=== PATIENT | female | born 1965 | race Caucasian/White ===

== ENCOUNTER 2021-02-21 07:48 | Outpatient (RCR) | payer OTHER, SELFPAY | END 2021-03-28 23:59 | LOC: IMMUN 07:48 | PROVIDERS: PCP Student in an Organized Health Care Education/Training Program; Visit Provider Family Medicine | DX: Z23 Encounter for immunization (principal) | CPT/HCPCS: 0001A; 0002A; 91300 ==

== ENCOUNTER 2024-02-12 15:33 | Emergency (ER) | payer OTHER, SELFPAY ==
[2024-02-12 15:34] VITALS: BP 173/113; PULSE 78; RESP 16; TEMP 36.6; O2SAT 99; BMI 40.6
--- NOTE | 2024-02-12 15:55 | EDS_ITS ---
HPI <DANIAL Crystal - Last Filed: 02/12/24 16:57> History of Present Illness Chief Complaint: Chest Other Narrative Narrative: Patient is a 58-year-old female with history of hypertension, obesity who presents to the emergency department with 5 weeks of worsening left-sided rib pain. Patient states most the pain is the posterior left ribs, patient is point tender. Patient has worsening pain, states it shoots into her abdomen. Patient has been seen several times for this, patient has been to 2 different emergency departments, patient has had a CT scan, MRI, and they are still unable to figure out what is causing this. Patient does have some lymphadenopathy on her CT scans and small pulmonary nodules however no acute process. Patient states that the pain is continuing and is here for evaluation. PFS <DANIAL Crystal - Last Filed: 02/12/24 16:57> [facility] Medical History (Updated 02/12/24 @ 16:54 by DANIAL Crystal) Hypertension Home Medications ?Medication ?Instructions ?Recorded ?Last Taken ?Type gabapentin 300 mg capsule 300 mg PO TID #89 caps 02/12/24 Unknown Rx prednisone 20 mg tablet 40 mg (2 x 20 mg) PO DAILY 6 days 02/12/24 Unknown Rx #12 tabs tramadol 50 mg tablet 50 mg PO Q8H PRN pain #14 tabs 02/12/24 Unknown Rx Allergy/AdvReac Type Severity Reaction Status Date / Time peanut (peanuts) Allergy Angioedema Verified 02/12/24 15:37 Penicillins Allergy Hives Verified 02/12/24 15:37 Social History Smoking Status: Never smoker ROS <DANIAL Crystal - Last Filed: 02/12/24 16:57> ROS ED ROS Narrative Constitutional: Negative for fever, chills, weight loss, weakness Eyes: Negative for vision loss, vision change, double vision ENT: Negative for any sore throat, ear pain, congestion Cardiovascular: Negative for any chest pain, tightness, palpitations. Positive for left-sided posterior rib pain Respiratory: Negative for any cough, sputum production, hemoptysis, dyspnea, dyspnea on exertion, orthopnea Gastrointestinal: Negative for any abdominal pain, nausea, vomiting, diarrhea, constipation, blood in stool, blood in vomit : Negative for any urinary frequency, dysuria, retention, blood in urine Muscle skeletal: Negative for any neck pain. Positive left-sided back pain Neurological: Negative for any headache, syncope, dizziness Skin: Negative for any rashes, itching, abrasions, lacerations Psychiatric: Negative for any depression, anxiety, stress, suicidal ideation, homicidal ideation Hematologic: Negative for any excessive bruising, easy bleeding EXAM <DANIAL Crystal - Last Filed: 02/12/24 16:57> Physical Exam Narrative Exam Narrative: Vital signs reviewed. HEET: Head normocephalic atraumatic, TMs clear bilaterally. Posterior pharynx is clear, moist mucous membranes. Nares clear bilaterally. Neck: Supple with no lymphadenopathy or tenderness. No signs of meningismus. Cardiac: Regular rate and rhythm no murmurs gallops or rubs, equal peripheral p ulses bilaterally. Respiratory: Lungs clear to auscultation bilaterally. No chest tenderness. Abdomen: Soft, nontender, nondistended. No abdominal bruit or pulsatile masses. No hepatosplenomegaly Extremities: No peripheral edema, no signs of gross trauma or deformity. Active full range of motion of all extremities. Neuro: Cranial nerves II through XII intact, no focal neurological deficits. Skin: Clean dry and intact with no rash, purpura, petechiae, vesicles or pustules. Backs/flank: No CVA tenderness, no midline spinal tenderness, no deformity. Patient has pain to the posterior left rib. Patient is point tender along the anterior aspect. Visual inspection showed no rash, there is no herpetic lesions. There is no cellulitis. There is no crepitus. Equal breath sounds throughout. Psych: Normal mood and affect. No SI, HI or acute psychosis. Const Vital Signs: 02/12/24 15:34 02/12/24 15:47 Temperature 98 F Temperature Source Temporal Pulse Rate 78 Respiratory Rate 16 Respiratory Effort Normal Non-Labored Blood Pressure 173/113 H Blood Pressure Mean 133 Pulse Ox 99 Oxygen Delivery Method Room Air <Dr. Dax Wakefield MD - Last Filed: 02/13/24 00:21> Physical Exam Const Vital Signs: 02/12/24 15:34 02/12/24 15:47 Temperature 98 F Temperature Source Temporal Pulse Rate 78 Respiratory Rate 16 Respiratory Effort Normal Non-Labored Blood Pressure 173/113 H Blood Pressure Mean 133 Pulse Ox 99 Oxygen Delivery Method Room Air MDM <DANIAL Crystal - Last Filed: 02/12/24 16:57> [facility] Treatment and Re-Evaluation :: Differential diagnosis includes however is not limited to: Costochondritis, shingles, muscle strain, thoracic strain Patient appears generally well, patient appears nontoxic, vital signs are stable. Patient presents to the emergency department with ongoing pain to the left posterior ribs that radiates to the left abdomen. Patient had multiple studies, do not believe that we can offer the patient any diagnostic studies here. We did speak with the patient at length, at this time, I do believe that is dermatomal, this could be some radiculopathy. Multiple reasons such as shingles, however does not appear to be on a dermatome. At this time, patient be to his gabapentin she be given her first dose here 300 mg, tomorrow she will take 2 doses, then 3 doses thereon after for the next month. Patient will follow-up with pain management. She was given tramadol as well as prednisone. She instructed return for any worsening symptoms. All questions were answered, patient stable for discharge. <Dr. Dax Wakefield MD - Last Filed: 02/13/24 00:21> [facility] Narrative Medical decision making narrative: I have personally performed a face to face assessment of the patient and have reviewed the AZAR Note. I performed a substantive portion of the visit including all aspects of the following. My mclain findings include: History is 5 weeks or so of pain from her left mid-low back radiating around to her left upper quadrant. Does not cross the midline in her back or abdomen. Movement makes it worse. Treatments have not been helping, but she was just prescribed a muscle relaxer that she has not tried yet. She states, according to the patient, that she has had a CT of the abdomen/pelvis, MRI of the thoracic spine, and MRI of the lumbar spine all at outside hospitals, that information is not available right now. She states she has no new symptoms. She does not recall ever having a rash. She had chickenpox when she was a child, she did not have the shingles vaccine, and she has never had shingles before. She has had temporary improvement when she was manipulated by chiropractor. Exam is tender in the left posterior lateral back at 1 point away from the spine, where she is not tender, and the tenderness is fairly superficial. There is no rash. She is tender around the rib/dermatome to the left upper quadrant above the umbilicus toward the midline but not beyond it. No rash. All of the tenderness appears to be in a T9 dermatome, well below the costal margin in the flank and anterior abdomen. Medical Decison Making I do not think the patient needs any other emergent workup here in the emergency department. It is possible this is a costal issue or an issue with an intercostal nerve, but it could be a sensory radiculopathy in dermatome T9. She is given information for pain management as they may have steroid injections to offer her that may help control this, in the meantime were going to try her on gabapentin and a short course of prednisone to see if that helps, advising that she discontinue the NSAID while she is on prednisone, and I recommend that she not take dicyclomine which she was prescribed I do not think this is intra-abdominal. It is possible this is shingles with postherpetic neuralgia and she never noticed the rash. Other additions or changes: [None] Discharge Plan Triage Chief Complaint: Chest Other ED Midlevel Provider: Bello Soriano ED Provider: Dax Wakefield Dx/Rx/DC Orders Clinical Impression: Nerve pain, Radiculopathy, Rib pain on left side Instructions: Therapeutic Pain Blocks, Relieving Back Pain, Common Spine and Disk Problems Prescriptions: New gabapentin 300 mg capsule 300 mg PO TID Qty: 89 0RF Rx Instructions: Tomorrow,02/12, he will take 1 tab in the morning and in the evening. Starting the next day 02/13 you may take this 3 times a day tramadol 50 mg tablet 50 mg PO Q8H PRN (Reason: pain) Qty: 14 0RF prednisone 20 mg tablet 40 mg PO DAILY 6 Days Qty: 12 0RF Primary Care Provider: Cirilo Flaherty Referrals: Tuyet Whittaker MD [Med Staff - Active Staff] - Cirilo Flaherty DO [Primary Care Provider] - Activity Restrictions/Additional Instructions: You will take the tramadol as needed for severe pain. Take the prednisone every day until empty. The gabapentin, you were given your first dose today. Tomorrow you will take 2 tablets 1 in the morning 1 in the evening. The next day you can start taking the medication as prescribed 3 times a day. Follow-up pain management Print Language: Somali Disposition Disposition: Home, Self Care Discharge Date/Time: 02/12/24 17:06
[2024-02-12] MEDS: Gabapentin 300 MG Capsule PO (16:56)
== END 2024-02-12 17:06 | disposition home or self-care (01) ==
PROVIDERS: Emergency Provider Emergency Medicine; PCP Student in an Organized Health Care Education/Training Program; Visit Provider Emergency Medicine
DX: M54.16 Radiculopathy, lumbar region (principal); R07.81 Pleurodynia
CPT/HCPCS: 99282

== ENCOUNTER 2024-07-26 12:19 | Emergency (ER) | payer OTHER, SELFPAY ==
[2024-07-26] VITALS (7 sets, daily range): BP systolic 135–181; BP diastolic 58–110; PULSE 48–80; RESP 14–18; TEMP 36.2–36.6; O2SAT 95–98; BMI 41.9
--- NOTE | 2024-07-26 12:43 | ED.RN ---
nausea and dizziness with movement
--- NOTE | 2024-07-26 13:40 | CT_ITS ---
STUDY: CTA HEAD AND NECK WITH CONTRAST REASON FOR EXAM: Female, 59 years old. Neuro deficit, acute, stroke suspected RADIATION DOSAGE (If Supplied By Facility): = ( 27.12 ) mGy, DLP = ( 1527.17 ) mGycm TECHNIQUE: CT angiography was performed with a multi-detector CT scanner. Data acquisition was obtained from the skull base through the vertex following intravenous administration of IV 100mL Isovue-370. MIP images were reconstructed from the axial data set. Post-processing of the angiographic images was performed, with multiplanar reformation and 3D reconstruction. Individualized dose optimization techniques were used for this CT. COMPARISON: No relevant priors. FINDINGS: Normal bilateral petrous carotid arteries. Normal right cavernous carotid artery with a normal supraclinoid bifurcation. Normal left cavernous carotid artery with a normal supraclinoid bifurcation. Normal right A1 segments of the anterior cerebral artery. Normal left A1 segments of the anterior cerebral artery. Normal intact anterior communicating artery (ACOM). Normal bilateral A2 segments of the anterior cerebral arteries. Normal right M1 and M2 segments of the middle cerebral arteries, with a normal M1 bifurcation. Normal left M1 and M2 segments of the middle cerebral arteries, with a normal M1 bifurcation. Normal right posterior communicating artery (PCOM). Normal left posterior communicating artery (PCOM). Normal bilateral vertebral arteries. Normal basilar artery with a normal basilar bifurcation. The visualized bilateral superior cerebellar (SCA) arteries are normal. Normal bilateral P1, P2 and visualized P3 segments of the posterior cerebral arteries. There is no demonstrated aneurysm of the [place]. There is no demonstrated abnormality of the visualized brain. AORTIC ARCH: Normal visualized aortic arch. Normal origins of the brachiocephalic, left common carotid, and left subclavian arteries. RIGHT CAROTID ARTERIES: Normal right common carotid artery (CCA). Normal right common carotid bulb. Normal origin of the right internal carotid (ICA) artery without a hemodynamically significant stenosis. Normal visualized cervical portion of the right internal carotid artery. Normal origin of the right external carotid artery (ECA). LEFT CAROTID ARTERIES: Normal left common carotid artery (CCA). Normal left common carotid bulb. Normal origin of the left internal carotid (ICA) artery without a hemodynamically significant stenosis. Normal visualized cervical portion of the left internal carotid artery. Normal origin of the left external carotid artery (ECA). VERTEBRAL ARTERIES: Normal bilateral vertebral arteries. CT/CTA Head AND Neck W/ Contrast IMPRESSION: Normal CTA Head and neck with contrast. Electronically Signed: Meek Fraga MD at 16:01 EDT ,
--- NOTE | 2024-07-26 13:40 | EKG12_ITS ---
Test Reason : NEURO SX Blood Pressure : */* mmHG Vent. Rate : 78 BPM Atrial Rate : 78 BPM P-R Int : 196 ms QRS Dur : 80 ms QT Int : 426 ms P-R-T Axes : 56 46 78 degrees QTcB Int : 485 ms Sinus rhythm with Premature supraventricular complexes Nonspecific T wave abnormality Prolonged QT Abnormal ECG Confirmed by KEENAN MIRELES, JULIA ([id number]), assistant production editor MARSHALL ROBERSON ([id number]) on 07/28/2024 11:26:32 AM Referred By: Confirmed By: JULIA HUSSEIN MD
--- NOTE | 2024-07-26 13:42 | EDS_ITS ---
HPI History of Present Illness Chief Complaint: Neuro S/Sx Informant: patient Onset/Context/Timing Onset: Today Timing: Continuous Quality and Location: Positive for Right Arm Weakness Current Severity: Mild Maximum Severity: Mild Associated Symptoms Associated Symptoms: Negative for Headache, Nausea, Vomiting or Chest Pain Narrative Narrative: 59-year-old female history of hypertension and vertigo. Said after she woke up this morning around 730 she had tingling in her right arm and chest felt heavy. She went to work around 10 AM and said she felt somewhat off balance. Said this is exactly like her vertigo. Normally the room spinning. Says she has a mild facial numbness around her lips and tongue. No trouble speaking. No visual change. No recent head injury. No prior stroke or mini stroke. She is not diabetic. Prior similar symptoms: No Recent Illness/Hospitalization: No PFSH PFSH Medical History Hypertension Home Medications ?Medication ?Instructions ?Recorded ?Last Taken ?Type gabapentin 300 mg capsule 300 mg PO TID #89 caps 02/12/24 Unknown Rx prednisone 20 mg tablet 40 mg (2 x 20 mg) PO DAILY 6 days 02/12/24 Unknown Rx #12 tabs tramadol 50 mg tablet 50 mg PO Q8H PRN pain #14 tabs 02/12/24 Unknown Rx Allergy/AdvReac Type Severity Reaction Status Date / Time peanut (peanuts) Allergy Angioedema Verified 07/26/24 12:23 Penicillins Allergy Hives Verified 07/26/24 12:23 Social History Smoking Status: Never smoker ROS ROS ED ROS Narrative Denies recent illness. Constitutional Constitutional ED: Denies chills or fever(s) Eyes Eyes: Denies blurry vision ENT ENT ED: Denies ear pain Cardiovascular Cardiovascular: Denies chest pain Respiratory/Chest Respiratory/Chest: Denies cough or dyspnea Gastrointestinal Gastrointestinal: Denies abdominal pain Genitourinary Genitourinary ED: Denies dysuria or hematuria Musculoskeletal Musculoskeletal: Denies arthralgias Integumentary Denies abscess or Abrasions Neurologic Neurologic: Denies headache(s) Psychiatric Psychiatric: Denies anxiety or depression Endocrine Endocrinology: Denies polydipsia or polyphagia Hematologic/Lymphatic Hematologic/Lymphatic: Denies easy bleeding Allergic/Immunologic Allergic/Immunologic ED: Denies mouth swelling or urticaria EXAM Physical Exam Narrative Exam Narrative: 59-year-old female no acute distress vital signs stable afebrile. Sitting upright in bed. H EENT exam pupils round reactive light. Able to open close her eyes. No facial droop. Normal speech. Neck nontender. Lungs clear. Heart sinus arrhythmia. Rate in the 80s. 4-6 systolic ejection murmur. His tory of a chronic murmur. Chest wall nontender. Abdomen soft nontender. Moving all 4 extremities. 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 Dorsi and plantarflexion intact. Able to lift either hand. Rapid hand movements normal. Fingertip to nose within normal limits bilaterally. No drift. Lower extremities normal dorsi plantarflexion normal rejo-pw-nuno. No drift. Neurologically she is awake alert. No focal motor or sensory deficits. NIH is 0. Const Vital Signs: 07/26/24 12:23 07/26/24 12:56 07/26/24 12:59 Temperature 97.1 F L Temperature Source Temporal Pulse Rate 48 L 74 Respiratory Rate 18 14 Blood Pressure 155/62 H 181/110 H 164/92 H Blood Pressure Mean 93 133 116 Pulse Ox 98 95 Oxygen Delivery Method Room Air Room Air 07/26/24 13:22 07/26/24 13:40 07/26/24 14:00 Temperature Temperature Source Pulse Rate 78 80 Respiratory Rate 16 14 Blood Pressure 150/72 H 153/58 H Blood Pressure Mean 98 89 Pulse Ox 98 Oxygen Delivery Method Room Air Room Air Room Air 07/26/24 15:00 Temperature Temperature Source Pulse Rate 70 Respiratory Rate 14 Blood Pressure 135/67 H Blood Pressure Mean 89 Pulse Ox 96 Oxygen Delivery Method Room Air Positive well nourished and well developed; Negative for cachectic, contractures or unkempt General Appearance ED: well developed; Negative for unkempt, cachectic or contractures Nutritional Appearance: Negative for cachectic HEENT Reports moist mucous membranes atraumatic Eyes PERRL and EOMs intact bilaterally General Eye ED: Negative for pale conjunctiva or scleral icterus Neck no lymphadenopathy, supple and no JVD General: Negative for tenderness Thyroid: Negative for other Chest Wall inspection of chest normal and palpation of chest normal Resp normal respiratory effort and clear to auscultation bilaterally Effort and Inspection: Negative for retractions Auscultation: Negative for rales, rhonchi, wheezes or diminished lung sounds Cardio Negative for no murmurs Cardio Narrative: Sinus arrhythmia. 4 over 6 systolic ejection murmur. Rate: regular rate Rhythm: regular rhythm GI normal to inspection, nondistended, normoactive bowel sounds, soft to palpation, non-tender, non-distended and no masses Palpation: Negative for tender, guarding or rebound tenderness present Back/Spine no CVA tenderness General Back: Negative for CVA tenderness Cervical Spine: Negative for cervical spine tenderness Thoracic Spine / Upper Back: Negative for thoracic spinal tenderness Lumbar Spine / Lower Back: Negative for lumbar spinal tenderness Extremity normal to inspection General Extremety ED: Negative for deformity or edema General Extremity: Negative for deformity or edema Neuro oriented x3 and CN's II-XII intact bilaterally Sensorium / Orientation: alert, oriented to person, oriented to place and oriented to time; Negative for orientation impaired or confused Speech: speech normal Motor Exam: strength 5/5 throughout Psych mental status grossly normal Appearance: Negative for unkempt Attitude: No agitated Mood & Affect: Negative for depressed, anxious or tearful Attention / Concentration: Negative for other Skin General Skin Exam: Negative for jaundice Lesions: no lesions Rashes: no rashes MDM MDM MDM Narrative Medical decision making narrative: 59-year-old female with right arm tingling and tingling to her face. Off- balance. Her neurologic exam and exam is normal in bed. She will undergo a stroke workup. Her last known well was last night before she woke up this morning. And her NIH currently 0. She is not really a stroke team. Repeat exam patient is doing well at 4 PM. NIH is normal. She ambulates without any difficulty according to her and the nursing staff. Repeat neurologic exam again is normal and unchanged. She and I discussed her test results. We do not have a specific cause of her symptoms. We discussed admission for MRI tomorrow versus being discharged home with outpatient follow- up. She preferred to be discharged home. History & Record Review Discussion w/independent historian: Patient Additional record(s) reviewed:: Prior inpatient record, Prior outpatient record and Prior ED visit Lab Data Attestation: I reviewed the patient's lab results. Lab results narrative: CBC normal. White count of 7. H&H 13 and 40. Platelets 202. PT/INR 13 and 1. PTT 27. Troponin is normal at 6. Electrolytes shows sodium 138. Gap 7. Normal BUN of 15 creatinine 0.8. Glucose 101. Labs: Laboratory Results - last 24 hr 07/26/24 07/26/24 13:36 13:47 WBC 7.3 RBC 4.69 Hgb 13.4 Hct 40.8 MCV 87.0 MCH 28.6 MCHC 32.8 RDW Std Deviation 40.4 RDW Coeff of John 13.0 Plt Count 202 MPV 8.9 Immature Gran % (Auto) 1.500 H Neut % (Auto) 72.3 H Lymph % (Auto) 16.3 L Kingfisher % (Auto) 8.4 Eos % (Auto) 1.1 Baso % (Auto) 0.4 Absolute Neuts (auto) 5.3 Absolute Lymphs (auto) 1.18 Nucleated RBC % 0 PT 13.6 INR 1.0 APTT 27.0 Sodium 138 Potassium 3.8 Chloride 105 Carbon Dioxide 26.0 Anion Gap 7 BUN 15 Creatinine 0.80 Estim Creat Clear Calc 93.22 Est GFR (MDRD) Af Amer 93 Est GFR (MDRD) Non-Af 77 BUN/Creatinine Ratio 18.7 Glucose 101 Calcium 9.3 Troponin I High Sens 6 POC Glucose 92 Radiography Chest X-Ray - ED: Read by ED Physician, Normal, Heart, Lungs, Mediastinum, Bony Structures, No Acute Disease and Chronic Changes Diagnostic Testing: Clinical Impression(s) from Imaging Studies Head/Neck CTA 07/26/24 13:40 IMPRESSION: Normal CTA Head and neck with contrast. Electronically Signed: Meek Fraga MD at 16:01 EDT , Chest x-ray, portable, single view, interpreted by myself shows no acute abnormality. Normal cardiac silhouette. Normal mediastinum. Normal lung collins. Rhythm Strip Rhythm Strip: Sinus Rhythm Rate: 78 Ectopy: None EKG Initial EKG: Attestation: I personally reviewed and interpreted this EKG as follows: Interpretation: Sinus Rhythm and No Acute Injury Pattern Comments: Sinus rhythm rate of 78 no acute signs of MS or ischemia. Discharge Plan Triage Chief Complaint: Neuro S/Sx ED Provider: Ruben Nichols Dx/Rx/DC Orders Clinical Impression: Light-headedness, History of hypertension Instructions: ED Dizziness, Uncertain Cause Prescriptions: No Action gabapentin 300 mg capsule 300 mg PO TID Qty: 89 0RF Rx Instructions: Tomorrow,02/12, he will take 1 tab in the morning and in the evening. Starting the next day 02/13 you may take this 3 times a day tramadol 50 mg tablet 50 mg PO Q8H PRN (Reason: pain) Qty: 14 0RF prednisone 20 mg tablet 40 mg PO DAILY 6 Days Qty: 12 0RF Primary Care Provider: Cirilo Flaherty Referrals: Cirilo Flaherty DO [Primary Care Provider] - As soon as possible Activity Restrictions/Additional Instructions: CAT scan the labs today were unremarkable. Your exam is normal. We do not have a specific cause for your symptoms. Follow-up with your doctor for further evaluation. Return if feeling worse. Print Language: Paraguayan Disposition Disposition: Home, Self Care
--- NOTE | 2024-07-26 13:46 | ED.RN ---
no [facility] per dr. sneed.
[2024-07-26 13:54] LABS: Bedside Glucose 92 mg/dL (74-106)
[2024-07-26 13:57] LABS: Absolute Lymphocyte Count 1.18 X10^3/uL (0.83-4.51); Absolute Neutrophil Count 5.3 X10^3/uL (2.0-7.7); Basophil# 0.03 X10^3/uL; Basophil% 0.4 % (0-1); Eosinophil# 0.08 X10^3/uL; Eosinophils% 1.1 % (0-5); Hematocrit 40.8 % (37-47); Hemoglobin 13.4 g/dL (12.0-15.0); Lymphocyte # 1.18 X10^3/ul (0.83-4.51); Lymphocyte % 16.3 % (19-41); Mean Corp Hgb Conc 32.8 g/dL (32-36); Mean Corpuscular Hgb 28.6 pg (27.0-32.0); Mean Platelet Vol. 8.9 fl (6.2-12.0); Monocyte# 0.61 X10^3/uL; Monocyte% 8.4 % (0-10); NRBC Flagged by Analyzer 0 % (0-5); Neutrophil # 5.25 X10^3/uL (2.7-7.7); Neutrophil % 72.3 % (47-70); Platelet Count 202 K/mm3 (150-450); RBC Distribution Width SD 40.4 fl (35.1-43.9); Red Blood Count 4.69 M/mm3 (4.2-5.4); White Blood Count 7.3 K/mm3 (4.4-11.0)
[2024-07-26 14:07] LABS: Prothrombin Time (Protime)PT. 13.6 SECONDS (11.7-14.9)
[2024-07-26 14:09] LABS: Anion Gap 7 (5-15); BUN 15 mg/dL (7-18); BUN/Creat Ratio 18.7 RATIO (10-20); Calcium,Total 9.3 mg/dL (8.5-10.1); Chloride 105 mmol/L (98-107); EST Glomerular Filtration Rate 77 mL/min (>60); Est Glom Filt Rate - Afr Amer 93 mL/min (>60); Estimated Creatinine Clearance 93.22 ml/min; Glucose 101 mg/dL (74-106); Potassium 3.8 mmol/L (3.5-5.1); Sodium Level 138 mmol/L (136-145); Troponin-I HS 6 pg/mL (3.0-54.0)
--- NOTE | 2024-07-26 14:30 | RAD_ITS ---
STUDY: X-RAY CHEST REASON FOR EXAM: Female, 59 years old. Neuro deficit, acute, stroke suspected TECHNIQUE: COMPARISON: None. FINDINGS: The lungs are clear and expanded. There is no demonstrated pleural abnormality. Normal size heart. Normal mediastinum and anabell. Normal visualized pulmonary arteries. Normal visualized aortic arch and descending thoracic aorta. Normal visualized thoracic spine. Normal visualized ribs, clavicles, and shoulders. There is no demonstrated abnormality of the visualized soft tissue structures of the upper abdomen. RAD/Chest 1 View IMPRESSION: Normal x-ray examination of the chest. Electronically Signed: Meek Fraga MD at 16:57 EDT ,
--- OUTSIDE RECORDS SUMMARY | 2024-07-26 19:31 | XMS RPT_ITS | CCD ---
Author Organization [facility] Care Team Providers Care Nail Feeder Name Role Phone DR CIRILO NICHOLE DO Primary Care Physician Cirilo Nichole DO Primary Care Provider SUE MCBRIDE Referring Unavailable CIRILO NICHOLE Primary Care Unavailable SUE MCBRIDE Attending Unavailable CIRILO NICHOLE Primary Care Unavailable MAST CORK TIPPER-AUTOMOTIVE LOT ATTENDANT, JEIMY Attending Unavailabl e ROMAR DO, DR MALDONADO Primary Care Unavailable ROMAR DO, DR MALDONADO Primary Care Unavailable ROMAR DO, DR MALDONADO Attending Unavailable PALUTSIS DO, AMELIA Rodriguez Consulting Unavail able RUBÉN GABRIEL MD, V Attending Unavailable ROMAR DO, DR MALDONADO Primary Care Unavailable RUT HARDEN MD Consulting Unavailable MAST CORK TIPPER-AUTOMOTIVE LOT ATTENDANT, JEIMY Attending Unavailabl e ROMAR DO, DR MALDONADO Primary Care Unavailable ROMAR DO, DR MALDONADO Primary Care Unavailable ROMAR DO, DR MALDONADO Attending Unavailable AKI CORK TIPPER-AUTOMOTIVE LOT ATTENDANT, JERRELL Attending Unavai lable ROMAR DO, DR MALDONADO Primary Care Unavailable MISA GROSSMAN Attending Unavailable ROMAR DO, DR MALDONADO Primary Care Unavailable RUBÉN GABRIEL MD, V Attending Unavailable ROMAR DO, DR MALDONADO Primary Care Unavailable ROMAR DO, DR MALDONADO Attending Unavailable ROMAR DO, DR MALDONADO Primary Care Unavailable ROMAR DO, DR MALDONADO Attending Unavailable ROMAR DO, DR MALDONADO Primary Care Unavailable AKI CORK TIPPER-AUTOMOTIVE LOT ATTENDANT, JERRELL Attending Unavai lable ROMAR DO, DR MALDONADO Primary Care Unavailable MAST CORK TIPPER-AUTOMOTIVE LOT ATTENDANT, JEIMY Attending Unavailabl e ROMAR DO, DR MALDONADO Primary Care Unavailable ROMAR DO, DR MALDONADO Primary Care Unavailable ROMAR DO, DR MALDONADO Attending Unavailable SAAD DO, DENISSE Gilbert Attending Unavailable ROMAR DO, DR MALDONADO Primary Care Unavailable RODNEY MIRELES, DR KENDRICK Attending Unavailabl e ROMAR DO, DR MALDONADO Primary Care Unavailable CHIVO MIRELES, ELIANE Gutierres Attending Unavail able DAYANARA BERTRAND, DR MALDONADO Primary Care Unavailable CHIVO MIRELES, ELIANE Gutierres Attending Unavail able DAYANARA BERTRAND, DR MALDONADO Primary Care Unavailable DAYANARA BERTRAND, DR MALDONADO Primary Care Unavailable DAYANARA BERTRAND, DR MALDONADO Attending Unavailable Allergies Allergy Classification Reported Allergen(s) Allergy Type Date of Onset Reaction(s) Facility (19 sources) Penicillin; Translations: [penicillins] Drug Allergy [facility] (18 sources) Peanut butter Food allergy Anaphylaxis (disorder), Angioedema (disorder) [facility] (3 sources) Contrast media; Translations: [RED DYE] Drug Allergy 9 Swelling [facility] Work Phone: (3 sources) Peanut butter; Translations: [PEANUT BUTTER FLAVOR] Drug Allergy 3 Anaphylaxis [facility] Work Phone: (3 sources) Penicillins; Translations: [PENICILLINS] Drug Intolerance 6 [facility] Work Phone: Medications Current Medications Medication Drug Class(es) Dates Sig (Normalized) Sig (Original) 8 hr acetaminophen 650 mg extended release oral tablet (3 sources) Start: 03-08-2024 Tylenol 8 Hour 650 mg oral tablet, extended release Dose : 1,300 mg = 2 tab(s), Oral, TID, PRN as needed for pain, # 24 tab(s), 0 Refill(s) Start Date: 03/08/24 Status: Ordered aspirin 81 mg delayed release oral tablet (19 sources) Platelet Aggregation Inhibitor, Nonsteroidal Anti-inflammatory Drug Start: 11-20-2021 aspirin 81 mg oral delayed release tablet Dose : 81 mg = 1 tab(s), Oral, qHS, do not crush or chew. Pt to call dr gabriel for hold date instructions, is to get bleeding time lab work done ordered per Bartolo paz and will get at [facility] 03/08/24, # 90 tab(s), 3 Refill(s), Pharmacy: [facility]/pharmacy #[id number], 163, cm, 11/20/21 13:06:00 EST, Height, kg, 11/20/21 13:06:00 EST, Dosing Weight Start Date: 11/20/21 Status: Ordered atorvastatin 20 mg oral tablet (5 sources) HMG-CoA Reductase Inhibitor Start: 11-20-2021 atorvastatin 20 mg oral tablet Dose : 20 mg = 1 tab(s), Oral, qPM, # 90 tab(s), 3 Refill(s), Pharmacy: [facility]/pharmacy #[id number], Hyperlipemia Cerebellar infarct, 163, cm, 11/20/21 13:06:00 EST, Height, kg, 11/20/21 13:06:00 EST, Dosing Weight Start Date: 11/20/21 Status: Ordered Azithromycin 5 Day Dose Pack 250 mg oral tablet (3 sources) Start: 02-17-2024 End: 02-22-2024 Azithromycin 5 Day Dose Pack 250 mg oral tablet Take two (2) tablets day 1-then one (1) tablet, Oral, Daily, X 5 day(s), # 6 tab(s), 0 Refill(s), 02/22/24 1:27:00 PM EDT, Pharmacy: [facility]/pharmacy #[id number], 163, cm, 02/17/24 13:01:00 EDT, Height, 112.3, kg, 02/17/24 13:01:00 EDT, Dosing Weight Start Date: 02/17/24 Stop Date: 02/22/24 Status: Ordered Biotin (5 sources) Start: 02-28-2021 biotin Oral, qDay, 0 Refill(s) Start Date: 02/28/21 Status: Ordered cyclobenzaprine hydrochloride 5 mg oral tablet (2 sources) Muscle Relaxant Start: 03-08-2024 cyclobenzaprine 5 mg oral tablet Dose : 10 mg = 2 tab(s), Oral, TID, PRN Muscle spasm, 0 Refill(s) Start Date: 03/08/24 Status: Ordered Start: 02-25-2024 End: 03-03-2024 take 1-2 tablets by mouth three times daily as needed for muscle spasms cyclobenzaprine 5 mg oral tablet 1-2 tabs, Oral, TID, PRN Muscle spasm, Do not drive, operate heavy machinery, or drink alcohol while on this medication., X 7 day(s), # 42 tab(s), 0 Refill(s), 03/03/24 11:45:00 AM EDT, Pharmacy: [facility]/pharmacy #[id number], 165, cm, 02/24/24 11:36:00 EDT, Height, kg, 02/24/24 11:36:00 EDT, Dosing Weight Start Date: 02/25/24 Stop Date: 03/03/24 Status: Ordered DULoxetine 60 mg delayed release oral capsule (4 sources) Serotonin and Norepinephrine Reuptake Inhibitor Start: 03-23-2024 End: 06-21-2024 take 1 capsule by mouth once daily DULoxetine 60 mg oral delayed release capsule Dose : 60 mg = 1 cap(s), Oral, qDay, do not crush or chew. Take 30 mg PO daily for two weeks then increase to 60 mg PO daily thereafter, # 90 cap(s), 0 Refill(s), Pharmacy: [facility]/pharmacy #[id number], 164.7, cm, 03/09/24 13:33:00 EDT, Height, kg, 03/09/24 13:33:00 EDT, Dosing Weight Start Date: 03/23/24 Stop Date: 06/21/24 Status: Ordered Start: 03-09-2024 End: 03-23-2024 take 1 capsule by mouth once daily DULoxetine 30 mg oral delayed release capsule Dose : 30 mg = 1 cap(s), Oral, qDay, do not crush or chew. Take 30 mg PO daily for two weeks then increase to 60 mg PO daily thereafter, # 14 cap(s), 0 Refill(s), Pharmacy: [facility]/pharmacy #[id number], 164.7, cm, 03/09/24 13:33:00 EDT, Height, kg, 03/09/24 13:33:00 EDT, Dosing Weight Start Date: 03/09/24 Stop Date: 03/23/24 Status: Ordered ferrous sulfate 325 mg oral tablet (5 sources) Start: 02-24-2024 End: 05-24-2024 ferrous sulfate 325 mg (65 mg elemental iron) oral tablet Dose : 325 mg = 1 tab(s), Oral, Mon/Wed/Fri, may take with food to minimize abdominal discomfort, # 39 tab(s), 0 Refill(s), Pharmacy: [facility]/pharmacy #[id number], 165, cm, 02/24/24 11:36:00 EDT, Height, kg, 02/24/24 11:36:00 EDT, Dosing Weight Start Date: 02/24/24 Stop Date: 05/24/24 Status: Ordered furosemide 20 mg oral tablet (1 source) Loop Diuretic Start: 12-07-2023 End: 12-21-2023 Lasix 20 mg oral tablet Dose : 20 mg = 1 tab(s), Oral, qDay, # 14 tab(s), 0 Refill(s), Pharmacy: [facility]/pharmacy #[id number], Peripheral edema, 165, cm, 12/07/23 11:03:00 EDT, Height, kg, 12/07/23 11:03:00 EDT, Dosing Weight Start Date: 12/07/23 Stop Date: 12/21/23 Status: Ordered herbal/nutritional product (1 source) Start: 05-29-2021 herbal/nutriti onal product See Instructions, cataplex D (vitamin A,D, and Calcium) 1 tab BID, 0 Refill(s) Start Date: 05/29/21 Status: Ordered levothyroxine sodium 0.075 mg oral tablet (20 sources) l-Thyroxine Start: 12-07-2023 End: 06-28-2024 Synthroid 75 mcg (0.075 mg) oral tablet Dose : 75 mcg = 1 tab(s), Oral, qAM, SANDRA - synthroid, # 90 tab(s), 1 Refill(s), SANDRA, [id number], 163.2, cm, 12/31/23 11:36:00 EDT, Height, kg, 12/31/23 11:36:00 EDT, Dosing Weight Start Date: 12/31/23 Stop Date: 06/28/24 Status: Ordered Start: 11-21-2021 take 0.5 tablet by m outh once daily levothyroxine 150 mcg (0.15 mg) oral tablet See Instructions, Take 1/2 tablet daily, # 15 tab(s), 6 Refill(s), Pharmacy: [facility]/pharmacy #[id number], 163, cm, 11/20/21 13:06:00 EST, Height, kg, 11/20/21 13:06:00 EST, Dosing Weight Start Date: 11/21/21 Status: Ordered take 1 tablet by elkin th once daily before breakfast levothyroxine (SYNTHROID) 75 mcg tablet Take 75 mcg by mouth daily before breakfast. 0 Active Comment on above: Take 75 mcg by mouth daily before breakfast. lisinopril 10 mg oral tablet (20 sources) Angiotensin Converting Enzyme Inhibitor Start: 12-07-2023 End: 06-28-2024 lisinopril 10 mg oral tablet Dose : 10 mg = 1 tab(s), Oral, qHS, # 90 tab(s), 1 Refill(s), Pharmacy: [facility]/pharmacy #[id number], 163.2, cm, 12/31/23 11:36:00 EDT, Height, kg, 12/31/23 11:36:00 EDT, Dosing Weight Start Date: 12/31/23 Stop Date: 06/28/24 Status: Ordered Start: 11-20-2021 lisinopril 10 mg oral tablet Dose : 10 mg = 1 tab(s), Oral, qDay, # 90 tab(s), 3 Refill(s), Pharmacy: [facility]/pharmacy #[id number], 163, cm, 11/20/21 13:06:00 EST, Height, kg, 11/20/21 13:06:00 EST, Dosing Weight Start Date: 11/20/21 Status: Ordered Comment on above: Take 10 mg by mouth once daily. Magnesium lactate (1 source) Start: 07-10-2021 magnesium lactate See Instructions, 3 tabs at bedtime, 0 Refill(s) Start Date: 07/10/21 Status: Ordered methocarbamol 750 mg oral tablet (8 sources) Muscle Relaxant Start: 03-09-2024 End: 03-23-2024 methocarbamol 750 mg oral tablet Dose : 1,500 mg = 2 tab(s), Oral, TID, PRN as needed for pain, Do not drive, operate heavy machinery, or drink alcohol while on this medication., # 84 tab(s), 0 Refill(s), Pharmacy: [facility]/pharmacy #[id number], 164.7, cm, 03/09/24 13:33:00 EDT, Height, kg, 03/09/24 13:33:00 EDT, Dosing Weight Start Date: 03/09/24 Stop Date: 03/23/24 Status: Ordered Start: 02-24-2024 End: 03-02-2024 methocarbamol 750 mg oral ta blet Dose : 1,500 mg = 2 tab(s), Oral, TID, PRN as needed for pain, Do not drive, operate heavy machinery, or drink alcohol while on this medication., # 42 tab(s), 0 Refill(s), Pharmacy: [facility]/pharmacy #[id number], 165, cm, 02/24/24 11:36:00 EDT, Height, kg, 02/24/24 11:36:00 EDT, Dosing Weight Start Date: 02/24/24 Stop Date: 03/02/24 Status: Ordered Start: 02-12-2024 End: 02-19-2024 methocarbamol 750 mg oral ta blet Dose : 1,500 mg = 2 tab(s), Oral, TID, PRN as needed for pain, Do not drive, operate heavy machinery, or drink alcohol while on this medication., # 42 tab(s), 0 Refill(s), Pharmacy: [facility]/pharmacy #[id number], 163, cm, 02/11/24 8:19:00 EDT, Height, kg, 02/11/24 8:19:00 EDT, Dosing Weight Start Date: 02/12/24 Stop Date: 02/19/24 Status: Ordered Multivitamin preparation (19 sources) Start: 04-26-2019 take 1 tablet by mouth once daily in the morning Multivitamin Dose = 1 tab(s), Oral, qAM, 0 Refill(s) Start Date: 04/26/19 Status: Ordered Start: 04-26-2019 take 1 tablet by elkin th once daily Multivitamin Dose = 1 tab(s), Oral, Daily, 0 Refill(s) Start Date: 04/26/19 Status: Ordered omeprazole 40 mg delayed release oral capsule (2 sources) Proton Pump Inhibitor Start: 03-09-2024 End: 06-07-2024 omeprazole 40 mg oral delayed release capsule Dose : 40 mg = 1 cap(s), Oral, qDayAC, before a meal, # 90 cap(s), 0 Refill(s), Pharmacy: [facility]/pharmacy #[id number], 164.7, cm, 03/09/24 13:33:00 EDT, Height, kg, 03/09/24 13:33:00 EDT, Dosing Weight Start Date: 03/09/24 Stop Date: 06/07/24 Status: Ordered PEG-3350 with Electrolytes (Eqv-GoLYTELY) oral powder for reconstitution (9 sources) Start: 02-03-2024 PEG-3350 with Electrolytes (Eqv-GoLYTELY) oral powder for reconstitution See Instructions, Take as directed 1 day before colonoscopy. Follow instructions as provided by your GI provider at [place]., # 1 EA, 0 Refill(s), Pharmacy: [facility]/pharmacy #[id number], 163, cm, 02/03/24 13:48:00 EDT, Height, kg, 02/03/24 13:48:00 EDT, Dosing Weight Start Date: 02/03/24 Status: Ordered polyethylene glycol 3350 94339 mg powder for oral solution (3 sources) Osmotic Laxative Start: 03-08-2024 MiraLax oral powder for reconstitution Dose : 17 gram(s) =, Oral, Mon/Thu/Thu, With Iron, # 510 gram(s), 0 Refill(s) Start Date: 03/08/24 Status: Ordered predniSONE 20 mg oral tablet (3 sources) Start: 02-17-2024 Deltasone 20mg tab (TAPER) Dose : 40 mg = 2 tab(s), qDay, 0 Refill(s) Start Date: 02/17/24 Status: Ordered Probiotic (5 sources) Start: 02-28-2021 Probiotic 0 Re fill(s) Start Date: 02/28/21 Status: Ordered sennosides, correction 8.6 mg oral tablet (12 sources) Start: 02-03-2024 senna (sennosi cj) 8.6 mg oral tablet Dose : 17.2 mg = 2 tab(s), Oral, BID, PRN as needed for constipation, # 20 tab(s), 0 Refill(s) Start Date: 02/03/24 Status: Ordered traMADol hydrochloride 50 mg oral tablet (3 sources) Opioid Agonist Start: 02-17-2024 traMADol 50 mg oral tablet Dose : 50 mg = 1 tab(s), Oral, q12h, PRN for pain, # 12 tab(s), 0 Refill(s), 110.8 Start Date: 02/17/24 Status: Ordered Vitamin D2 1.25 mg (50,000 intl units) oral capsule (14 sources) Start: 12-31-2023 End: 06-28-2024 Vitamin D2 1.25 mg (50,000 intl units) oral capsule Dose : 50,000 International_Unit = 1 cap(s), Oral, Thursday, # 13 cap(s), 1 Refill(s), Pharmacy: [facility]/pharmacy #[id number], 163.2, cm, 12/31/23 11:36:00 EDT, Height, kg, 12/31/23 11:36:00 EDT, Dosing Weight Start Date: 12/31/23 Stop Date: 06/28/24 Status: Ordered Start: 12-31-2023 End: 06-28-2024 Vitamin D2 1.25 mg (50,000 i ntl units) oral capsule Dose : 50,000 International_Unit = 1 cap(s), Oral, qWeek, # 13 cap(s), 1 Refill(s), [id number], 163.2, cm, 12/31/23 11:36:00 EDT, Height, kg, 12/31/23 11:36:00 EDT, Dosing Weight Start Date: 12/31/23 Stop Date: 06/28/24 Status: Ordered Start: 03-21-2022 Vitamin D2 1.2 5 mg (50,000 intl units) oral capsule Dose : 50,000 International_Unit = 1 cap(s), Oral, qWeek, # 4 cap(s), 1 Refill(s), [id number], 163.5, cm, 03/12/22 13:39:00 EDT, Height Start Date: 03/21/22 Status: Ordered Zinc (16 sources) Start: 12-07-2023 take 1 mg by mouth o nce daily Zinc mg =, Oral, qDay, 0 Refill(s) Start Date: 12/07/23 Status: Ordered Start: 05-29-2021 take 10 mg by mouth once daily Zinc See Instructions, 10 mg Oral qDay, 0 Refill(s) Start Date: 05/29/21 Status: Ordered zinc gluconate 50 mg oral tablet (3 sources) Start: 03-08-2024 zinc (as gluco yessy) 50 mg oral tablet Dose : 50 mg = 1 tab(s), Oral, qAM, # 30 tab(s), 0 Refill(s) Start Date: 03/08/24 Status: Ordered Completed/Discontinued Medications Medication Drug Class(es) Dates Sig (Normalized) Sig (Original) ascorbic acid 500 mg oral tablet (2 sources) Vitamin C Start: 08-27-2011 take 1 tablet by mouth once daily ascorbic acid (VITAMIN C) 500 mg ORAL tablet Take 1 tablet by mouth once daily. 0 08/27/2011 Active Comment on above: Take 1 tablet by [facility] once daily. betamethasone 0.5 mg/ml / clotrimazole 10 mg/ml topical cream (2 sources) Azole Antifungal, Corticosteroid Start: 06-11-2023 clotrimazole-betam ethasone (LOTRISONE) cream Indications: Vulvar itching Apply 1 application to affected area twice daily. 15 g 2 06/11/2023 Active Comment on above: Apply 1 application to affected area twice daily. busPIRone hydrochloride 5 mg oral tablet (1 source) Start: 05-29-2021 End: 08-27-2021 busPIRone 5 mg oral tablet Dose : 5 mg = 1 tab(s), Oral, TID, # 270 tab(s), 0 Refill(s), Pharmacy: [facility]/pharmacy #[id number], 164.5, cm, 05/29/21 10:05:00 EDT, Height, kg, 05/29/21 10:05:00 EDT, Dosing Weight Start Date: 05/29/21 Stop Date: 08/27/21 Status: Ordered calcium citrate 1190 mg / cholecalciferol 0.005 mg oral tablet (2 sources) Vitamin D Start: 11-12-2005 CITRACAL + D 250 MG-62.5 UNIT TAB Indications: Routine gynecological examination Take two(2) tablets twice daily. 120 12 11/12/2005 Active Comment on above: Take two(2) tablets twice daily. diclofenac sodium 75 mg delayed release oral tablet (7 sources) Nonsteroidal Anti-inflammatory Drug Start: 01-29-2024 End: 02-12-2024 diclofenac sodium 75 mg oral delayed release tablet Dose : 75 mg = 1 tab(s), Oral, BID, # 28 tab(s), 0 Refill(s), Pharmacy: [facility]/pharmacy #[id number], 163, cm, 01/26/24 13:09:00 EDT, Height, kg, 01/26/24 13:09:00 EDT, Dosing Weight Start Date: 01/29/24 Stop Date: 02/12/24 Status: Ordered dicyclomine hydrochloride 10 mg oral capsule (7 sources) Anticholinergic Start: 02-11-2024 End: 02-17-2024 dicyclomine 10 mg oral capsule Dose : 10 mg = 1 cap(s), Oral, QID, 0 Refill(s) Start Date: 02/11/24 Stop Date: 02/17/24 Status: Ordered estradiol 0.1 mg/ml vaginal cream (3 sources) Estrogen Start: 06-11-2023 estradiol (ESTRACE) 0.01 % (0.1 mg/gram) vaginal cream Indications: Postmenopausal atrophic vaginitis Use 1 g vaginally as directed. Insert 1 gm vaginally every night x 14 nights then insert 1 gm vaginally twice weekly 42.5 g 3 06/11/2023 Active Start: 11-08-2019 End: 06-11-2023 Estradiol (VAGIFEM) 10 mcg t ab vaginal tablet Insert 1 tab nightly for 2 weeks. Then use 2 times per week ongoing. Vaginally. 20 tablet 11 11/08/2019 06/11/2023 Discontinued Comment on above: Use 1 g vaginally as directed. Insert 1 gm vaginally every night x 14 nights then insert 1 gm vaginally twice weekly Insert 1 tab nightly for 2 weeks. Then use 2 times per week ongoing. Vaginally. gabapentin 300 mg oral capsule (7 sources) Anti-epileptic Agent Start: 03-17-2024 gabapentin 300 mg oral capsule Dose : 300 mg = 1 cap(s), Oral, TID, 0 Refill(s), 106.6 Start Date: 03/17/24 Status: Ordered Start: 03-08-2024 gabapentin 300 mg oral capsule Dose : 300 mg = 1 cap(s), Oral, TID, # 90 cap(s), 0 Refill(s), 110 Start Date: 03/08/24 Status: Ordered Start: 02-17-2024 gabapentin 300 mg oral capsule Dose : 300 mg = 1 cap(s), Oral, TID, # 30 cap(s), 0 Refill(s), 110.8 Start Date: 02/17/24 Status: Ordered Meclizine (2 sources) Antiemetic meclizine HCl (MECLIZINE ORAL) Take by mouth. 0 Active Comment on above: Take by mouth. MULTIVITAMIN TAB (2 sources) Start: 6 MULTIVITAMIN TAB Take one(1) tablet daily. 0 11/12/2005 Active Comment on above: Take one(1) tablet d aily. nystatin 149269 unt/ml topical cream (18 sources) Polyene Antifungal Start: 2 End: 2 nystatin 100,000 units/g topical cream Apply 1 azar, Topical, BID, PRN Rash, Apply to the affected area twice daily until healing complete., # 30 gram(s), 1 Refill(s), Pharmacy: [facility]/pharmacy #[id number], Cream, 163.5, cm, 02/18/22 12:55:00 EDT, Height, 113.4, kg, 02/18/22 12:55:00 EDT, Dosing Weight Start Date: 03/05/22 Stop Date: 05/04/22 Status: Ordered [place]-3 Fatty Acids (FISH OIL) 500 mg ORAL Cap (1 source) Start: 1 End: 3 [place]-3 Fatty Acids (FISH OIL) 500 mg ORAL Cap Take by mouth once daily. 0 08/27/2011 06/11/2023 Discontinued Comment on above: Take by mouth once d aily. PARoxetine hydrochloride 10 mg oral tablet (1 source) Serotonin Reuptake Inhibitor End: 3 take 1 tablet by mouth once daily PARoxetine (PAXIL) 10 mg tablet Take 10 mg by mouth once daily. 0 06/11/2023 Discontinued Comment on above: Take 10 mg by mouth once daily. Problems Active Problems Problem Classification Problem Date Documented Da te Episodic/Chronic Abdominal hernia (8 sources) Umbilical hernia 02-15-2024 Episodic Abdominal pain (20 sources) Abdominal pain; Translations: [Left upper quadrant pain] 03-07-2020 Episodic Anxiety disorders (19 sources) Generalized anxiety disorder 01-17-2020 Chronic Cardiac dysrhythmias (19 sources) Supraventricular tachycardia 04-08-2020 Chronic Cardiac dysrhythmias (20 sources) Bradycardia; Translations: [Palpitations] Onset: 4 01-27-2021 Episodic Conditions associated with dizziness or vertigo (20 sources) Benign paroxysmal positional vertigo; Translations: [Dizziness] Onset: 4 01-17-2020 Episodic Diseases of white blood cells (8 sources) Leukocytosis; Translations: [Elevated white blood cell count, unspecified] Onset: 4 Chronic Disorders of lipid metabolism (19 sources) Hyperlipidemia 05-29-2021 Chronic Diverticulosis and diverticulitis (8 sources) Diverticulosis of colon 02-15-2024 Chronic Esophageal disorders (20 sources) Gastroesophageal reflux disease 04-25-2019 Chronic Essential hypertension (20 sources) Benign hypertension; Translations: [Hypertensive disorder] 04-25-2019 Chronic Fever of unknown origin (1 source) Fever; Translations: [Fever, unspecified] Episodic Fluid and electrolyte disorders (15 sources) Hyperkalemia; Translations: [Hyperkalemia] Onset: 4 Episodic Heart valve disorders (20 sources) Mitral valve annular calcification; Translations: [Tricuspid valve regurgitation] 03-29-2020 Chronic Comment on above: Mild on echo 03/17 on echo 03/17 Heart valve disorders (19 sources) Irregular heart beat 09-19-2020 Episodic Lymphadenitis (20 sources) Hilar lymphadenopathy ; Translations: [Mediastinal lymphadenopathy] 02-05-2024 Episodic Menopausal disorders (1 source) Atrophic vaginitis; Translations: [Postmenopausal atrophic vaginitis] 06-11-2023 Chronic Mycoses (16 sources) Candidiasis of vagina 03-15-2021 Episodic Nonmalignant breast conditions (2 sources) Fibrocystic disease of breast; Translations: [Diffuse cystic mastopathy of unspecified breast] Onset: 0 09-12-2010 Chronic Nutritional deficiencies (13 sources) Vitamin D deficiency 12-31-2023 Chronic Nutritional deficiencies (8 sources) Iron deficiency; Translations: [Iron deficiency] Onset: 4 Episodic Osteoarthritis (11 sources) Osteoarthritis 02-05-2024 Chronic Other and ill-defined cerebrovascular disease (6 sources) Cerebellar infarction 06-14-2021 Chronic Other circulatory disease (5 sources) 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 Comment on above: Mild on echo 03/17 Other circulatory disease (19 sources) Orthostatic hypotension 05-29-2021 Episodic Other connective tissue disease (19 sources) Trochanteric bursitis 07-10-2021 Episodic Other connective tissue disease (1 source) Spasm; Translations: [Cramp and spasm] Episodic Other connective tissue disease (2 sources) Fibromyalgia 03-09-2024 Episodic Other diseases of kidney and ureters (19 sources) Cyst of kidney 03-28-2020 Episodic Comment on above: Simple cyst on ultra sound abdomen 03/17 Other endocrine disorders (13 sources) Hormone level - finding 12-18-2023 Episodic Other eye disorders (19 sources) Nystagmus 05-29-2021 Chronic Other female genital disorders (18 sources) History of abnormal cervical Papanicolaou smear 02-18-2022 Episodic Other gastrointestinal disorders (1 source) Swollen abdomen; Translations: [Abdominal distension (gaseous)] Onset: Episodic Other gastrointestinal disorders (12 sources) Abdominal bloating 01-26-2024 Episodic Other gastrointestinal disorders (12 sources) Constipation 01-26-2024 Episodic Other hematologic conditions (8 sources) Increased globulin 02-15-2024 Episodic Other infections; including parasitic (19 sources) 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 Episodic Other inflammatory condition of skin (1 source) Pruritus of vulva; Translations: [Pruritus vulvae] 06-11-2023 Episodic Other liver diseases (19 sources) Steatosis of liver 03-28-2020 Chronic Other liver diseases (19 sources) Elevated liver enzymes level 03-07-2020 Episodic Other lower respiratory disease (19 sources) Dyspnea 10-05-2020 Episodic Other lower respiratory disease (19 sources) Dyspnea on exertion 09-20-2020 Episodic Other lower respiratory disease (5 sources) Rib pain 02-24-2024 Episodic Other nervous system disorders (12 sources) Numbness 01-26-2024 Episodic Other non-traumatic joint disorders (12 sources) Arthropathy of spinal facet joint 01-26-2024 Chronic Other nutritional; endocrine; and metabolic disorders (20 sources) Body mass index 40+ - severely obese; Translations: [Morbid (severe) obesity due to excess calories] Onset: 7 03-07-2020 Chronic Other nutritional; endocrine; and metabolic disorders (1 source) Severe obesity; Translations: [Morbid (severe) obesity due to excess calories] 06-11-2023 Chronic Other screening for suspected conditions (not mental disorders or infectious disease) (5 sources) Patient encounter status; Translations: [Encounter for screening mammogram for malignant neoplasm of breast] Onset: 0 06-11-2023 Episodic Other skin disorders (1 source) Swelling / lump finding; Translations: [Localized swelling, mass and lump, head] Onset: 2 Episodic Other upper respiratory infections (2 sources) Acute pharyngitis, unspecified; Translations: [Acute pharyngitis, unspecified] Onset: 4 Episodic Otitis media and related conditions (18 sources) Disorder of right tympanic membrane 02-18-2022 Episodic Cookie-; endo-; and myocarditis; cardiomyopathy (except that caused by tuberculosis or sexually transmitted disease) (19 sources) Ejection murmur 03-07-2020 Chronic Peripheral and visceral atherosclerosis (8 sources) Abdominal aortic atherosclerosis 02-15-2024 Chronic Residual codes; unclassified (14 sources) Peripheral edema 12-07-2023 Episodic Residual codes; unclassified (12 sources) Early satiety 01-26-2024 Episodic Spondylosis; intervertebral disc disorders; other back problems (12 sources) Prolapsed lumbar intervertebral disc 01-26-2024 Chronic Spondylosis; intervertebral disc disorders; other back problems (20 sources) Low back pain; Translations: [Neck pain] 04-26-2019 Episodic Thyroid disorders (20 sources) Enio thyroiditis; Translations: [Hypothyroidism] 11-01-2020 Chronic Unclassified (20 sources) Patient encounter status 03-07-2020 Unclassified (1 source) Cough, unspecified; Translations: [Cough, unspecified] Onset: 4 Past or Other Problems Problem Classification Problem Date Documented Da te Episodic/Chronic Residual codes; unclassified (2 sources) Localized edema; Translations: [Localized edema] Onset: 02-11-2024 Episodic Unclassified (1 source) Cough, unspecified; Translations: [Cough, unspecified] Onset: 02-13-2024 Results Test Name Value Interpretation Reference Range Facility Supplemental Reporton 2023 Supplemental Report . Pathology Reports Accession: Collected Date/Time: Received Date/Time: Pathologist: [id number] 03/16/2024 12:05 EDT 03/16/2024 13:45 EDT MD OBDULIO DAMICO Supplemental Report SUPPLEMENTAL: [facility] [address] [place] [address] Flow Cytometry Analysis Clinical Summary and Indication: Evaluate for lymphoma Body Site: Other Interpretation: TBN, Station 7: -No Immunophenotypic evidence of a clonal B cell or an abnormal T cell population. Comment: Clinical and morphologic correlation will be necessary for a complete evaluation and final interpretation. Complete report scanned into chart. Electronically Signed by Diagnostic interpretation performed at [facility] OBDULIO DAMICO MD Sign out Date: 03/28/2024 14:45 Performing Lab: [address] Pathology Dept Non-Wedding [facility]orator Cytology Report CLINICAL INFORMATION: Malignancy vs granulomatous inflammation; mediastinal lymphadenopathy PRELIMINARY CONSULTATION: Station 7: 1st pass- mainly blood. 2nd pass- blood and scattered lymphocytes. 3rd pass- scattered lymphocytes (adequate specimen). sent for flow cytometry (combined station 7 & 4R) Final diagnosis pending review of all material. YING/desiree (OR 1) DIAGNOSTIC CATEGORY: NEGATIVE FOR MALIGNANCY. Adequate lymph node specimen. Occasional groups of epithelioid histiocytes present, suggestive of granuloma. SPECIMEN: TBN, Station 7 GROSS DESCRIPTION: # of Blocks: 1 # of Fixed Smears: 3 # of Air-dried Smears: 3 Volume (ml) 30 Color: fixed clear red needle rinse in cytolyt Pathology Reports Accession: Collected Date/Time: Received Date/Time: Pathologist: [id number] 03/16/2024 12:05 EDT 03/16/2024 13:45 EDT MD OBDULIO DAMICO Electronically Signed by Pathology Report verified by [facility] Screened by: MADIE HE Electronically signed by OBDULIO DAMICO MD Sign-Out Date: 03/17/2024 17:54 Performing Lab: [facility], [address] [place] [address] Pathology Dept Disclaimer If ancillary studies were utilized, the following Laboratory Developed Test (LDT) disclaimer will apply: Under CLIA requirements, [facility] is qualified to perform high complexity testing. For all ancillary stains, positive and negative controls stain appropriately. Performance characteristics of immunohistochemical and chromogenic in-situ hybridization tests have been determined by [facility]. These tests are used for clinical purposes, They should not be regarded as investigational or for research. [facility] Final Surgical Pathology Rep michael 03-23-2024 Final Surgical Pathology Report . Pathology Reports Accession: Collected Date/Time: Received Date/Time: Pathologist: [id number] 03/21/2024 10:59 EDT 03/22/2024 08:16 EDT EMMANUEL DE LA CRUZ MD Final Surgical Pathology Report DIAGNOSIS: RIGHT COLON, POLYPECTOMY: - SESSILE SERRATED LESION WITHOUT ATYPIA CLINICAL INFORMATION: ABDOMINAL PAIN Procedure: COLONOSCOPY WITH POLYPECTOMY Preoperative diagnosis: ABDOMINAL PAIN Postoperative diagnosis: ABDOMINAL PAIN SPECIMEN: A RIGHT COLON GROSS DESCRIPTION: All parts labelled with patient name and [id number] Received in formalin, labeled right colon is a single fragment of yellow-freedman tissue measuring 0.4 x 0.4 x 0.2 cm. TS-1 Moo Singh MD Performed by MOO SINGH MICROSCOPIC DESCRIPTION: The microscopic examination is performed, except in the case of Gross Only. Electronically Signed by Pathology Report verified by [facility] EMMANUEL DE LA CRUZ Sign out Date: 03/23/2024 15:56 Performing Lab: [facility], [address] [place] [address] Pathology Dept Disclaimer If ancillary studies were utilized, the following Laboratory Developed Test (LDT) disclaimer will apply: Under CLIA requirements, [facility] is qualified to perform high complexity testing. For all ancillary stains, positive and negative controls stain appropriately. Performance characteristics of immunohistochemical and chromogenic in-situ hybridization tests have been determined by [facility]. These tests are used for clinical purposes, They should not be regarded as investigational or for research. [facility] Non-[facility] Cytology Reporton Non-Wedding Decorator Cytology Report . Pathology Reports Accession: Collected Date/Time: Received Date/Time: Pathologist: [id number] 03/16/2024 12:05 EDT 03/16/2024 13:56 EDT MD OBDULIO DAMICO Non-Wedding [employer] Cytology Report CLINICAL INFORMATION: Malignancy vs granulomatous inflammation; mediastinal lymphadenopathy PRELIMINARY CONSULTATION: 4L: 1st pass- adequate specimen. Final diagnosis pending review of all material. RM/klk (OR 1) DIAGNOSTIC CATEGORY: NEGATIVE FOR MALIGNANCY. Adequate lymph node specimen. Noncaseating granulomas identified. Comment: GMS and AFB stains are negative for microorganisms. In the absence of an infectious etiology, the differential would include sarcoidosis. Recommend clinical pathologic correlation. SPECIMEN: TBN, 4L GROSS DESCRIPTION: # of Blocks: 1 # of Fixed Smears: 1 # of Air-dried Smears: 1 Volume (ml) 30 Color: fixed clear red needle rinse in cytolyt Electronically Signed by Pathology Report verified by [facility] Screened by: MADIE HE Electronically signed by OBDULIO DAMICO MD Sign-Out Date: 03/17/2024 17:57 Performing Lab: [facility], [address] [place] [address] Pathology Dept Disclaimer If ancillary studies were utilized, the following Laboratory Developed Test (LDT) disclaimer will apply: Under CLIA requirements, [facility] Laboratory is qualified to perform high complexity testing. For all ancillary stains, positive and negative controls stain appropriately. Performance characteristics of immunohistochemical and chromogenic in-situ hybridization tests have been determined by [facility] Laboratory. These tests are used for clinical purposes, They should not be regarded as investigational or for research. [facility] Non-[facility] Cytology Report . Pathology Reports Accession: Collected Date/Time: Received Date/Time: Pathologist: [id number] 03/16/2024 12:05 EDT 03/16/2024 13:45 EDT MD OBDULIO DAMICO Non-Wedding [employer] Cytology Report CLINICAL INFORMATION: Malignancy vs granulomatous inflammation; mediastinal lymphadenopathy PRELIMINARY CONSULTATION: Station 7: 1st pass- mainly blood. 2nd pass- blood and scattered lymphocytes. 3rd pass- scattered lymphocytes (adequate specimen). sent for flow cytometry (combined station 7 & 4R) Final diagnosis pending review of all material. RM/klk (OR 1) DIAGNOSTIC CATEGORY: NEGATIVE FOR MALIGNANCY. Adequate lymph node specimen. Occasional groups of epithelioid histiocytes present, suggestive of granuloma. SPECIMEN: TBN, Station 7 GROSS DESCRIPTION: # of Blocks: 1 # of Fixed Smears: 3 # of Air-dried Smears: 3 Volume (ml) 30 Color: fixed clear red needle rinse in cytolyt Electronically Signed by Pathology Report verified by [facility] Screened by: MADIE HE Electronically signed by OBDULIO DAMICO MD Sign-Out Date: 03/17/2024 17:54 Performing Lab: [address] Pathology Dept Disclaimer If ancillary studies were utilized, the following Laboratory Developed Test (LDT) disclaimer will apply: Under CLIA requirements, [facility] is qualified to perform high complexity testing. For all ancillary stains, positive and negative controls stain appropriately. Performance characteristics of immunohistochemical and chromogenic in-situ hybridization tests have been determined by [facility] Laboratory. These tests are used for clinical purposes, They should not be regarded as investigational or for research. [facility] [facility] Cytology Report . Pathology Reports Accession: Collected Date/Time: Received Date/Time: Pathologist: [id number] 03/16/2024 12:05 EDT 03/16/2024 14:00 EDT MD OBDULIO DAMICO Non-Wedding [employer] Cytology Report CLINICAL INFORMATION: Malignancy vs granulomatous inflammation; mediastinal lymphadenopathy PRELIMINARY CONSULTATION: 1st pass- adequate specimen. sent for flow cytometry (combined with station 7) Final diagnosis pending review of all material. RM/estrellitak (OR 1) DIAGNOSTIC CATEGORY: NEGATIVE FOR MALIGNANCY. Adequate lymph node specimen. SPECIMEN: TBN, 4R GROSS DESCRIPTION: # of Blocks: 1 # of Fixed Smears: 1 # of Air-dried Smears: 1 Volume (ml) 30 Color: fixed clear pink needle rinse in cytolyt Electronically Signed by Pathology Report verified by [facility] Screened by: MADIE HE Electronically signed by OBDULIO DAMICO MD Sign-Out Date: 03/17/2024 11:08 Performing Lab: [facility], [address] [place] [address] Pathology Dept Disclaimer If ancillary studies were utilized, the following Laboratory Developed Test (LDT) disclaimer will apply: Under CLIA requirements, [facility] is qualified to perform high complexity testing. For all ancillary stains, positive and negative controls stain appropriately. Performance characteristics of immunohistochemical and chromogenic in-situ hybridization tests have been determined by [facility]. These tests are used for clinical purposes, They should not be regarded as investigational or for research. [facility] ([place] No Panel InformationOrdered By: Artie Youssef on 03-16-2024 GS Rare Polymorphonucle ar cells No organisms seen. [facility] Comment on above: Requests for Mycopla sma, Legionella, Fungi, Mycobacteria, Chlamydia, and Viruses require ordering of those individual tests. APTTon 03-08-2024 aPTT Coag (Bld) [Time] 28.7 s Normal 25.0-35.0 [facility] Comment on above: Result Comment: For Heparin anticoagulation therapy, the recommended therapeutic range is: 54-77 seconds (APTT Correlation with Anti-Xa therapeutic range of 0.3-0.7 units/ml). PLEASE REFERENCE THE PHARMACY PROTOCOL FOR DOSING. Performed By: #### P LT, FIB, PRO ####[place] [address] Heparin dose (APTT) Unknown Normal [facility] ([place]) Comment on above: Performed By: #### P LT, FIB, PRO ####[place] [address] FIBon 03-08-2024 Fibrinogen 514 mg/dL Normal 250-560 [facility] ([place] Comment on above: Performed By: #### P LT, FIB, PRO ####[place] [address] LABORATORYOrdered By: Vero Ibarra on 03-08-2024 aPTT Coag (Bld) [Time] 28.7 s Normal 25.0 - 35.0 seconds [facility] Comment on above: Interpretive Data: F or Heparin anticoagulation therapy, the recommended therapeutic range is: 54-77 seconds (APTT Correlation with Anti-Xa therapeutic range of 0.3-0.7 units/ml). PLEASE REFERENCE THE PHARMACY PROTOCOL FOR DOSING. Fibrinogen 514 mg/dL Normal 250 - 560 mg/dL AH [facility] Heparin dose (APTT) Unknown (03/08/24 9:19 AM) Normal AH Coagulation S PT Coag (PPP) [Time] 11.0 s Normal 9.0 - 1 4.4 seconds [facility] Comment on above: Interpretive Data: E ffective 04/11/08, Protime results may be affected by some antibiotics (i.e. Ciprofloxacin, Azithromycin, Bactrim) which may potentiate the action of oral anticoagulants, with further increases in Protime/INR. PT International Ratio 1.0 ratio Invalid Interpretation Code AH [facility] Comment on above: Interpretive Data: T he [employer] (CHEST, 1991, 102:312S-25S) recommended therapeutic range for oral anticoagulant therapy is: LOW RISK: Prophylaxis of venous thrombosis INR: 2.0-3.0 Treatment of pulmonary embolism 2.0-3.0 Prevention of systemic embolism 2.0-3.0 HIGH RISK: Mechanical prosthetic valves 2.5-3.5 LABORATORYOrdered By: SYSTEM SYSTEM on 03-08-2024 Platelets (Bld) [#/Vol] 256 103/mcL Normal 150 - 450 10^3/mcL Workflow SS PLTon 03-08-2024 Platelet 256 10 3/mcL Normal 150-450 [facility] [place] Comment on above: Performed By: #### P LT, FIB, PRO ####[address] [address] PROon 03-08-2024 INR Coag (PPP) [Relative time] 1.0 {INR} [facility] ([place] Comment on above: Result Comment: [employer] (CHEST, 1991, 102:312S-25S) recommended therapeutic range for oral anticoagulant therapy is: LOW RISK: Prophylaxis of venous thrombosis INR: 2.0-3.0 Treatment of pulmonary embolism 2.0-3.0 Prevention of systemic embolism 2.0-3.0 HIGH RISK: Mechanical prosthetic valves 2.5-3.5 Performed By: #### P LT, FIB, PRO ####[address] [address] PT Coag (PPP) [Time] 11.0 s Normal 9.0-14.4 [facility] ([place]) Comment on above: Result Comment: Effe ctive 04/11/08, Protime results may be affected by some antibiotics (i.e. Ciprofloxacin, Azithromycin, Bactrim) which may potentiate the action of oral anticoagulants, with further increases in Protime/INR. Performed By: #### P LT, FIB, PRO ####[address] [place] [address] .GFRon 02-24-2024 GFR 77 ml/min/1.73sqm [facility] ([place] Comment on above: Result Comment: GFR Population mean for , Non- Americans Ages 20-29 = 116 mL/min/1.73 sq.m. Ages 30-39 = 107 mL/min/1.73 sq.m. Ages 40-49 = 99 mL/min/1.73 sq.m. Ages 50-59 = 93 mL/min/1.73 sq.m. Ages 60-69 = 85 mL/min/1.73 sq.m. Ages 70+ = 75 mL/min/1.73 sq.m. Chronic Kidney Disease: Less than 60 mL/min/1.73 square meters End Stage Renal Disease: Less than 15 mL/min/1.73 square meters Performed By: #### C MP, GFR ####[address] [place], [place] [address] GFR Non- 64 ml/min/1.73sqm [facility] ([place] Comment on above: Result Comment: GFR Population mean for , Non- Americans Ages 20-29 = 116 mL/min/1.73 sq.m. Ages 30-39 = 107 mL/min/1.73 sq.m. Ages 40-49 = 99 mL/min/1.73 sq.m. Ages 50-59 = 93 mL/min/1.73 sq.m. Ages 60-69 = 85 mL/min/1.73 sq.m. Ages 70+ = 75 mL/min/1.73 sq.m. Chronic Kidney Disease: Less than 60 mL/min/1.73 square meters End Stage Renal Disease: Less than 15 mL/min/1.73 square meters Performed By: #### C MP, GFR ####[address] [place], [place] [address] CMPon 02-24-2024 Albumin Level 3.5 G/dL Normal 3.4-4.8 [facility] ([place] Comment on above: Performed By: #### C MP, GFR ####[address] [place], [place] [address] Albumin/Globulin [Mass ratio] 0.9 {ratio} Low 1.1-2.5 [facility] ([place] Comment on above: Performed By: #### C MP, GFR ####[address] [place], [place] [address] ALP [Catalytic activity/Vol] 69 U/L Normal 40-135 [facility] ([place] Comment on above: Performed By: #### C MP, GFR ####[address] [place], [place] [address] ALT [Catalytic activity/Vol] 29 U/L Normal 14-59 [facility] ([place] Comment on above: Performed By: #### C MP, GFR ####[address] [place], [place] [address] AST [Catalytic activity/Vol] 18 U/L Normal 10-40 [facility] ([place] Comment on above: Performed By: #### C MP, GFR ####[address] [place], [place] [address] Bili Total 0.8 mg/dL Normal 0.2-1.0 [facility] ([place] Comment on above: Result Comment: Use of this assay is not recommended for patients undergoing treatment with eltrombopag due to the potential for falsely elevated results. Performed By: #### C MP, GFR ####[address] [place], [place] [address] BUN/Creatinine Ratio 12 ratio Normal 7-27 [facility] ([place]) Comment on above: Performed By: #### C MP, GFR ####[address] [place], [place] [address] Calcium [Mass/Vol] 8.6 mg/dL Normal 8.4-10.2 [facility] ([place]) Comment on above: Performed By: #### C MP, GFR ####[address] [place], [place] [address] Chloride [Moles/Vol] 99 mmol/L Normal 98-107 [facility] ([place]) Comment on above: Performed By: #### C MP, GFR ####[address] [place], [place] [address] CO2 [Moles/Vol] 25 mmol/L Normal 23-31 [facility] ([place] Comment on above: Performed By: #### C MP, GFR ####[address] [place], [place] [address] Creatinine [Mass/Vol] 0.90 mg/dL Normal 0.55-1.02 [facility] ([place]) Comment on above: Performed By: #### C MP, GFR ####[address] [place], [place] [address] Electrolyte Balance 12.0 mEq/L Normal 4.0-15.0 [facility] ([place]) Comment on above: Performed By: #### C MP, GFR ####[address] [place], [place] [address] Globulin 3.8 G/dL Normal [facility] ([place] Comment on above: Performed By: #### C MP, GFR ####[address] [place], [place] [address] Glucose [Mass/Vol] 122 mg/dL High 80-115 [facility] ([place]) Comment on above: Performed By: #### C MP, GFR ####[address] [place], [place] [address] Potassium [Moles/Vol] 4.2 mmol/L Normal 3.5-5.1 [facility] ([place] Comment on above: Performed By: #### C MP, GFR ####[address] [place], [place] [address] Sodium [Moles/Vol] 136 mmol/L Normal 136-145 [facility] ([place]) Comment on above: Performed By: #### C MP, GFR ####[address] [place], [place] [address] Total Protein 7.3 G/dL Normal 6.4-8.2 [facility] ([place] Comment on above: Performed By: #### C MP, GFR ####[address] [place], [place] [address] Urea nitrogen [Mass/Vol] 11 mg/dL Normal 7-18 [facility] ([place] Comment on above: Performed By: #### C MP, GFR ####[address] [place], [place] [address] LABORATORYOrdered By: Keegan Saavedra on 02-24-2024 Osmolality (U) [Osmolality] 871 mosm/kg Normal 390 - 1090 mOsm/kg AH Manual Chem SS LABORATORYOrdered By: Cynthia Broderick on 02-24-2024 Sodium (U) [Moles/Vol] 97 mmol/L Invalid Interpretation Code AH ADM SS LABORATORYOrdered By: SYSTEM SYSTEM on 02-24-2024 Albumin BCP dye [Mass/Vol] 3.5 G/dL Normal 3.4 - 4.8 G/dL AO ADM SS Albumin/Globulin [Mass ratio] 0.9 {ratio} Low 1.1 - 2.5 ratio AO ADM SS ALP [Catalytic activity/Vol] 69 U/L Normal 40 - 135 U/L AO ADM SS ALT With P-5'-P [Catalytic activity/Vol] 29 U/L Normal 14 - 59 U/L AO ADM SS AST With P-5'-P [Catalytic activity/Vol] 18 U/L Normal 10 - 40 U/L AO ADM SS Bilirubin [Mass/Vol] 0.8 mg/dL Normal 0.2 - 1 .0 mg/dL AO ADM SS Comment on above: Interpretive Data: U se of this assay is not recommended for patients undergoing treatment with eltrombopag due to the potential for falsely elevated results. Calcium [Mass/Vol] 8.6 mg/dL Normal 8.4 - 10. 2 mg/dL AO ADM SS Chloride [Moles/Vol] 99 mmol/L Normal 98 - 10 7 mmol/L AO ADM SS CO2 [Moles/Vol] 25 mmol/L Normal 23 - 31 mmol/L AO ADM SS Creatinine [Mass/Vol] 0.90 mg/dL Normal 0.55 - 1.02 mg/dL AO ADM SS Electrolyte Balance 12.0 mEq/L Normal 4.0 - 15 .0 mEq/L AO ADM SS GFR/1.73 sq M.predicted among blacks MDRD (S/P/Bld) [Vol rate/Area] 77 ml/min/1.73sqm Invalid Interpretation Code AO Chemistry S Comment on above: Interpretive Data: GFR Population mean for , Non- Americans Ages 20-29 = 116 mL/min/1.73 sq.m. Ages 30-39 = 107 mL/min/1.73 sq.m. Ages 40-49 = 99 mL/min/1.73 sq.m. Ages 50-59 = 93 mL/min/1.73 sq.m. Ages 60-69 = 85 mL/min/1.73 sq.m. Ages 70+ = 75 mL/min/1.73 sq.m. Chronic Kidney Disease: Less than 60 mL/min/1.73 square meters End Stage Renal Disease: Less than 15 mL/min/1.73 square meters GFR/1.73 sq M.predicted among non-blacks MDRD (S/P/Bld) [Vol rate/Area] 64 ml/min/1.73sqm Invalid Interpretation Code AO Chemistry S Comment on above: Interpretive Data: GFR Population mean for , Non- Americans Ages 20-29 = 116 mL/min/1.73 sq.m. Ages 30-39 = 107 mL/min/1.73 sq.m. Ages 40-49 = 99 mL/min/1.73 sq.m. Ages 50-59 = 93 mL/min/1.73 sq.m. Ages 60-69 = 85 mL/min/1.73 sq.m. Ages 70+ = 75 mL/min/1.73 sq.m. Chronic Kidney Disease: Less than 60 mL/min/1.73 square meters End Stage Renal Disease: Less than 15 mL/min/1.73 square meters Globulin 3.8 G/dL Invalid Interpretation Code AO ADM SS Glucose [Mass/Vol] 122 mg/dL High 80 - 115 mg/dL AO ADM SS Potassium [Moles/Vol] 4.2 mmol/L Normal 3.5 - 5.1 mmol/L AO ADM SS Protein [Mass/Vol] 7.3 G/dL Normal 6.4 - 8.2 G/dL AO ADM SS Sodium [Moles/Vol] 136 mmol/L Normal 136 - 145 mmol/L AO ADM SS Urea nitrogen [Mass/Vol] 11 mg/dL Normal 7 - 18 mg/dL AO ADM SS Urea nitrogen/Creatinine [Mass ratio] 12 ratio Normal 7 - 27 ratio AO ADM SS LABORATORYOrdered By: Kellie Storey on 02-24-2024 Osmolality [Osmolality] 282 mosm/kg Normal 275 - 300 mOsm/kg Manual Chem SS NAURon 02-24-2024 Sodium [Moles/Vol] 97 mmol/L Normal [facility] ([place]) Comment on above: Performed By: #### O SMOU, NAUR ####[place] [address] OSMOSon 02-24-2024 Osmolality [Osmolality] 282 mosm/kg Normal 275-300 [facility] ([place] Comment on above: Performed By: #### O SMOS ####[place] [address] OSMOUon 02-24-2024 U Osmolality 871 mOsm/kg Normal 390-1090 [facility] [place] Comment on above: Performed By: #### O SMOU, NAUR ####[place] [address] NAon 02-23-2024 Sodium [Moles/Vol] 132 mmol/L Low 136-145 [facility] ([place]) Comment on above: Performed By: #### N A #### [place] [place] [id number] Mikael 02-19-2024 Potassium [Moles/Vol] 4.0 mmol/L Normal 3.5-5.1 [facility] ([place]) Comment on above: Performed By: #### K ####[place] [address] LABORATORYOrdered By: SYSTEM SYSTEM on 02-19-2024 Potassium [Moles/Vol] 4.0 mmol/L Normal 3.5 - 5.1 mmol/L AO ADM SS .GFRon 02-17-2024 GFR Non- 66 ml/min/1.73sqm [facility] ([place] Comment on above: Result Comment: GFR Population mean for , Non- Americans Ages 20-29 = 116 mL/min/1.73 sq.m. Ages 30-39 = 107 mL/min/1.73 sq.m. Ages 40-49 = 99 mL/min/1.73 sq.m. Ages 50-59 = 93 mL/min/1.73 sq.m. Ages 60-69 = 85 mL/min/1.73 sq.m. Ages 70+ = 75 mL/min/1.73 sq.m. Chronic Kidney Disease: Less than 60 mL/min/1.73 square meters End Stage Renal Disease: Less than 15 mL/min/1.73 square meters Performed By: #### M ORPH, MG, BMP, GFR, FE, DIFF, CBC ####[address] [place], [place] [address] GFR 79 ml/min/1.73sqm [facility] ([place] Comment on above: Result Comment: GFR Population mean for , Non- Americans Ages 20-29 = 116 mL/min/1.73 sq.m. Ages 30-39 = 107 mL/min/1.73 sq.m. Ages 40-49 = 99 mL/min/1.73 sq.m. Ages 50-59 = 93 mL/min/1.73 sq.m. Ages 60-69 = 85 mL/min/1.73 sq.m. Ages 70+ = 75 mL/min/1.73 sq.m. Chronic Kidney Disease: Less than 60 mL/min/1.73 square meters End Stage Renal Disease: Less than 15 mL/min/1.73 square meters Performed By: #### M ORPH, MG, BMP, GFR, FE, DIFF, CBC ####[address] [place], [place] [address] .Manual Diffon 02-17-2024 Bands 4.0 % Normal 0.0-5.0 [facility] ([place] Comment on above: Performed By: #### M ORPH, MG, BMP, GFR, FE, DIFF, CBC ####[address] [place], [place] [address] Basophil %, Manual 0.0 % Normal 0.0-2.5 [facility] ([place]) Comment on above: Performed By: #### M ORPH, MG, BMP, GFR, FE, DIFF, CBC ####[address] [place], [place] [address] Basophil, Abs Manual 0.0 10 3/mcL Normal 0.0-0.2 [facility] ([place]) Comment on above: Performed By: #### M ORPH, MG, BMP, GFR, FE, DIFF, CBC ####[address] [place], [place] [address] Eosinophil %, Manual 0.0 % Normal 0.0-7.0 [facility] ([place]) Comment on above: Performed By: #### M ORPH, MG, BMP, GFR, FE, DIFF, CBC ####[address] [place], [place] [address] Eosinophil, Abs Manual 0.0 10 3/mcL Normal 0.0-0.4 [facility] ([place]) Comment on above: Performed By: #### M ORPH, MG, BMP, GFR, FE, DIFF, CBC ####[address] [place], [place] [address] Lymphocyte %, Manual 15.0 % Normal 10.0-50.0 [facility] ([place]) Comment on above: Performed By: #### M ORPH, MG, BMP, GFR, FE, DIFF, CBC ####[address] [place], [place] [address] Lymphocyte, Abs Manual 1.8 10 3/mcL Normal 0.8-3.9 [facility] ([place]) Comment on above: Performed By: #### M ORPH, MG, BMP, GFR, FE, DIFF, CBC ####[address] [place], [place] [address] Monocyte %, Manual 6.0 % Normal 1.7-13.0 [facility] ([place]) Comment on above: Performed By: #### M ORPH, MG, BMP, GFR, FE, DIFF, CBC ####[address] [place], [place] [address] Monocyte, Abs Manual 0.7 10 3/mcL Normal 0.2-1.0 [facility] ([place]) Comment on above: Performed By: #### M ORPH, MG, BMP, GFR, FE, DIFF, CBC ####[address] [place], [place] [address] Neutrophil %, Manual 75.0 % Normal 37.0-80.0 [facility] ([place]) Comment on above: Performed By: #### M ORPH, MG, BMP, GFR, FE, DIFF, CBC ####[address] [place], [place] [address] Neutrophil, Abs Manual 9.3 10 3/mcL High 2.9-6.2 [facility] ([place]) Comment on above: Performed By: #### M ORPH, MG, BMP, GFR, FE, DIFF, CBC ####[address] [place], [place] [address] Nucleated RBC 0.0 /100 WBC Normal [facility] ([place]) Comment on above: Performed By: #### M ORPH, MG, BMP, GFR, FE, DIFF, CBC ####[address] [place], [place] [address] .Morphon 02-17-2024 Anisocytosis Ql (Bld) 1+ Normal [facility] ([place]) Comment on above: Performed By: #### M ORPH, MG, BMP, GFR, FE, DIFF, CBC ####[address] [place], [place] [address] Platelet Estimate Normal Normal [facility] ([place]) Comment on above: Performed By: #### M ORPH, MG, BMP, GFR, FE, DIFF, CBC ####[address] [place], [place] [address] BMPon 02-17-2024 BUN/Creatinine Ratio 18 ratio Normal 7-27 [facility] ([place]) Comment on above: Performed By: #### M ORPH, MG, BMP, GFR, FE, DIFF, CBC ####[address] [place], [place] [address] Calcium [Mass/Vol] 9.4 mg/dL Normal 8.4-10.2 [facility] ([place]) Comment on above: Performed By: #### M ORPH, MG, BMP, GFR, FE, DIFF, CBC ####[address] [place], [place] [address] Chloride [Moles/Vol] 96 mmol/L Low 98-107 [facility] ([place]) Comment on above: Performed By: #### M ORPH, MG, BMP, GFR, FE, DIFF, CBC ####[address] [place], [place] [address] CO2 [Moles/Vol] 28 mmol/L Normal 23-31 [facility] ([place]) Comment on above: Performed By: #### M ORPH, MG, BMP, GFR, FE, DIFF, CBC ####[address] [place], [place] [address] Creatinine [Mass/Vol] 0.88 mg/dL Normal 0.55-1.02 [facility] ([place]) Comment on above: Performed By: #### M ORPH, MG, BMP, GFR, FE, DIFF, CBC ####[address] [place], [place] [address] Electrolyte Balance 10.0 mEq/L Normal 4.0-15.0 [facility] ([place]) Comment on above: Performed By: #### M ORPH, MG, BMP, GFR, FE, DIFF, CBC ####[address] [place], [place] [address] Glucose [Mass/Vol] 102 mg/dL Normal 80-115 [facility] ([place]) Comment on above: Performed By: #### M ORPH, MG, BMP, GFR, FE, DIFF, CBC ####[address] [place], [place] [address] Potassium [Moles/Vol] 5.2 mmol/L High 3.5-5.1 [facility] ([place]) Comment on above: Performed By: #### M ORPH, MG, BMP, GFR, FE, DIFF, CBC ####[address] [place], [place] [address] Sodium [Moles/Vol] 134 mmol/L Low 136-145 [facility] ([place]) Comment on above: Performed By: #### M ORPH, MG, BMP, GFR, FE, DIFF, CBC ####[address] [place] [address] Urea nitrogen [Mass/Vol] 16 mg/dL Normal 7-18 [facility] ([place]) Comment on above: Performed By: #### M ORPH, MG, BMP, GFR, FE, DIFF, CBC ####[address] [place], [place] [address] CBCon 02-17-2024 Erythrocyte distribution width (RBC) [Ratio] 14.6 % High 11.5-14.5 [facility] ([place]) Comment on above: Performed By: #### M ORPH, MG, BMP, GFR, FE, DIFF, CBC ####[address] [place] [id number] Hematocrit (Bld) [Volume fraction] 38.6 % Normal 37.0-47.0 [facility] ([place]) Comment on above: Performed By: #### M ORPH, MG, BMP, GFR, FE, DIFF, CBC ####[address] [place] [address] Hgb 13.3 G/dL Normal 12.0-16.0 [facility] ([place]) Comment on above: Performed By: #### M ORPH, MG, BMP, GFR, FE, DIFF, CBC ####[address] [place] [id number] MCH (RBC) [Entitic mass] 29.1 pg Normal 27.0-31.2 [facility] ([place]) Comment on above: Performed By: #### M ORPH, MG, BMP, GFR, FE, DIFF, CBC ####[address] [place] [id number] MCHC 34.5 G/dL Normal 33.0-37.0 [facility] ([place]) Comment on above: Performed By: #### M ORPH, MG, BMP, GFR, FE, DIFF, CBC ####[address] [place], [place] [address] MCV (RBC) [Entitic vol] 84.2 fL Normal 80.0-94.0 [facility] ([place]) Comment on above: Performed By: #### M ORPH, MG, BMP, GFR, FE, DIFF, CBC ####[address] [place], [place] [address] Platelet 300 10 3/mcL Normal 130-400 [facility] ([place]) Comment on above: Performed By: #### M ORPH, MG, BMP, GFR, FE, DIFF, CBC ####[address] [place], [place] [address] Platelet mean volume (Bld) [Entitic vol] 7.5 fL Normal 7.4-10.4 [facility] ([place]) Comment on above: Performed By: #### M ORPH, MG, BMP, GFR, FE, DIFF, CBC ####[address] [place], [place] [address] RBC 4.59 10 6/mcL Normal 4.20-5.40 [facility] ([place]) Comment on above: Performed By: #### M ORPH, MG, BMP, GFR, FE, DIFF, CBC ####[address] [place], [place] [address] WBC 11.8 10 3/mcL High 4.6-10.8 [facility] ([place]) Comment on above: Performed By: #### M ORPH, MG, BMP, GFR, FE, DIFF, CBC ####[address] [place], [place] [address] FEon 02-17-2024 Iron [Mass/Vol] 40 ug/dL Low 50-170 [facility] ([place]) Comment on above: Performed By: #### M ORPH, MG, BMP, GFR, FE, DIFF, CBC ####[address] [place], [place] [address] LABORATORYOrdered By: SYSTEM SYSTEM on 02-17-2024 Anisocytosis Ql (Bld) 1+ *NA* (02/17/24 1:59 PM) Invalid Interpretation Code AO Workflow SS Bands 4.0 % Normal 0.0 - 5.0 % AO Workflow SS Basophil %, Manual 0.0 % Normal 0.0 - 2.5 % AO Wo rkflow SS Basophil, Abs Manual 0.0 103/mcL Normal 0.0 - 0 .2 10^3/mcL AO Workflow SS Calcium [Mass/Vol] 9.4 mg/dL Normal 8.4 - 10. 2 mg/dL AO ADM SS Chloride [Moles/Vol] 96 mmol/L Low 98 - 10 7 mmol/L AO ADM SS CO2 [Moles/Vol] 28 mmol/L Normal 23 - 31 mmol/L AO ADM SS Creatinine [Mass/Vol] 0.88 mg/dL Normal 0.55 - 1.02 mg/dL AO ADM SS Electrolyte Balance 10.0 mEq/L Normal 4.0 - 15 .0 mEq/L AO ADM SS Eosinophil %, Manual 0.0 % Normal 0.0 - 7.0 % AO Workflow SS Eosinophils (Bld) [#/Vol] 0.0 103/mcL Normal 0.0 - 0.4 10^3/mcL AO Workflow SS Erythrocyte distribution width (RBC) [Ratio] 14.6 % High 11.5 - 14.5 % AO Workflow SS GFR/1.73 sq M.predicted among blacks MDRD (S/P/Bld) [Vol rate/Area] 79 ml/min/1.73sqm Invalid Interpretation Code AO Chemistry S Comment on above: Interpretive Data: GFR Population mean for , Non- Americans Ages 20-29 = 116 mL/min/1.73 sq.m. Ages 30-39 = 107 mL/min/1.73 sq.m. Ages 40-49 = 99 mL/min/1.73 sq.m. Ages 50-59 = 93 mL/min/1.73 sq.m. Ages 60-69 = 85 mL/min/1.73 sq.m. Ages 70+ = 75 mL/min/1.73 sq.m. Chronic Kidney Disease: Less than 60 mL/min/1.73 square meters End Stage Renal Disease: Less than 15 mL/min/1.73 square meters GFR/1.73 sq M.predicted among non-blacks MDRD (S/P/Bld) [Vol rate/Area] 66 ml/min/1.73sqm Invalid Interpretation Code AO Chemistry S Comment on above: Interpretive Data: GFR Population mean for , Non- Americans Ages 20-29 = 116 mL/min/1.73 sq.m. Ages 30-39 = 107 mL/min/1.73 sq.m. Ages 40-49 = 99 mL/min/1.73 sq.m. Ages 50-59 = 93 mL/min/1.73 sq.m. Ages 60-69 = 85 mL/min/1.73 sq.m. Ages 70+ = 75 mL/min/1.73 sq.m. Chronic Kidney Disease: Less than 60 mL/min/1.73 square meters End Stage Renal Disease: Less than 15 mL/min/1.73 square meters Glucose [Mass/Vol] 102 mg/dL Normal 80 - 115 mg/dL AO ADM SS Hematocrit (Bld) [Volume fraction] 38.6 % Normal 37.0 - 47.0 % AO Workflow SS Hemoglobin (Bld) [Mass/Vol] 13.3 G/dL Normal 12.0 - 16.0 G/dL AO Workflow SS Iron [Mass/Vol] 40 ug/dL Low 50 - 170 mcg/dL AO ADM SS Lymphocyte %, Manual 15.0 % Normal 10.0 - 50.0 % AO Workflow SS Lymphocyte, Abs Manual 1.8 103/mcL Normal 0.8 - 3.9 10^3/mcL AO Workflow SS Magnesium [Mass/Vol] 2.3 mg/dL Normal 1.8 - 2 .4 mg/dL AO ADM SS MCH (RBC) [Entitic mass] 29.1 pg Normal 27.0 - 31.2 pg AO Workflow SS MCHC 34.5 G/dL Normal 33.0 - 37.0 G/dL AO Workflow SS MCV (RBC) [Entitic vol] 84.2 fL Normal 80.0 - 94.0 fL AO Workflow SS Monocyte %, Manual 6.0 % Normal 1.7 - 13.0 % AO W orkflow SS Monocyte, Abs Manual 0.7 103/mcL Normal 0.2 - 1 .0 10^3/mcL AO Workflow SS Neutrophil %, Manual 75.0 % Normal 37.0 - 80.0 % AO Workflow SS Neutrophil, Abs Manual 9.3 103/mcL High 2.9 - 6.2 10^3/mcL AO Workflow SS Nucleated RBC 0.0 /100 WBC Invalid Interpretation Code AO Workflow SS Platelet Estimate Normal *NA* (02/17/24 1:59 PM) Invalid Interpretation Code AO Workflow SS Platelet mean volume (Bld) [Entitic vol] 7.5 fL Normal 7.4 - 10.4 fL AO Workflow SS Platelets (Bld) [#/Vol] 300 103/mcL Normal 130 - 400 10^3/mcL AO Workflow SS Potassium [Moles/Vol] 5.2 mmol/L High 3.5 - 5.1 mmol/L AO ADM SS RBC (Bld) [#/Vol] 4.59 106/mcL Normal 4.20 - 5.4 0 10^6/mcL AO Workflow SS Sodium [Moles/Vol] 134 mmol/L Low 136 - 145 mmol/L AO ADM SS Urea nitrogen [Mass/Vol] 16 mg/dL Normal 7 - 18 mg/dL AO ADM SS Urea nitrogen/Creatinine [Mass ratio] 18 ratio Normal 7 - 27 ratio AO ADM SS WBC (Bld) [#/Vol] 11.8 103/mcL High 4.6 - 10.8 10^3/mcL AO Workflow SS MGon 02-17-2024 Magnesium [Mass/Vol] 2.3 mg/dL Normal 1.8-2.4 [facility] ([place]) Comment on above: Performed By: #### M ORPH, MG, BMP, GFR, FE, DIFF, CBC ####[address] [place], [place] [address] SPEon 02-16-2024 SPE Interpretation Normal serum protein electrophoresis pattern. No abnormality detected. Normal [facility] ([place]) Comment on above: Result Comment: Elec tronically Signed by: EMMANUEL DE LA CRUZ 02/16/2024 16:18 EDT Performed By: #### S PE ####[address] [address] Albumin 3.6 G/dL Normal 3.3-5.0 [facility] ([place]) Comment on above: Performed By: #### S PE ####[place] [address] [place] [address] Alpha 1 0.3 G/dL Normal 0.1-0.4 [facility] ([place]) Comment on above: Performed By: #### S PE ####[place] [address] [place] [address] Alpha 2 0.8 G/dL Normal 0.6-1.2 [facility] ([place]) Comment on above: Performed By: #### S PE ####[address] [address] Beta 1.1 G/dL Normal 0.6-1.3 [facility] ([place]) Comment on above: Performed By: #### S PE ####[address] [address] Gamma 1.2 G/dL Normal 0.7-1.6 [facility] ([place]) Comment on above: Performed By: #### S PE ####[place] [address] UPEon 02-16-2024 UPE Interpretation There was no appreciable protein detected by electrophoresis of concentrated urine. Normal [facility] ([place]) Comment on above: Result Comment: Elec tronically Signed by: EMMANUEL DE LA CRUZ 02/16/2024 16:20 EDT Performed By: #### U PE ####[place] [address] COVPCRon 02-13-2024 SARS-CoV-2 (COVID-19) RNA SILVIA+probe Ql (Unsp spec) Negative Normal Negative [facility] ([place] Comment on above: Result Comment: Resu lts from the Xpert Xpress CoV-2/Flu/RSV plus test should be correlated with the clinical history, epidemiological data, and other data available to the clinical evaluating the patient. Performance of the Xpert Xpress CoV-2/Flu/RSV plus test has only been established in nasopharyngeal swab specimen. Erroneous test results might occur from improper specimen collection, failure to follow the recommended sample collection, handling and storage procedures, technical error, or sample mix-up. False negative results may occur if a virus is present at a level below the analytical limit of detection. Viral nucleic acid may persist in vivo, independent of virus viability. Detection of analyte target(s) does not imply that the corresponding virus(es) are infectious or are the causative agents for clinical symptoms. Recent patient exposure to FluMist or other live attenuated influenza vaccines may cause inaccurate positive results. Performed By: #### C OVPCR ####[address] [place], [place] [address] LABORATORYOrdered By: Linsey Morales on 02-13-2024 SARS-CoV-2 (COVID-19) RNA SILVIA+probe Ql (Resp) Negative 1 (02/13/24 12:45 PM) Normal Negative AO Auto Urine SS Comment on above: Interpretive Data: R esults from the Xpert Xpress CoV-2/Flu/RSV plus test should be correlated with the clinical history, epidemiological data, and other data available to the clinical evaluating the patient. Performance of the Xpert Xpress CoV-2/Flu/RSV plus test has only been established in nasopharyngeal swab specimen. Erroneous test results might occur from improper specimen collection, failure to follow the recommended sample collection, handling and storage procedures, technical error, or sample mix-up. False negative results may occur if a virus is present at a level below the analytical limit of detection. Viral nucleic acid may persist in vivo, independent of virus viability. Detection of analyte target(s) does not imply that the corresponding virus(es) are infectious or are the causative agents for clinical symptoms. Recent patient exposure to FluMist or other live attenuated influenza vaccines may cause inaccurate positive results. No Panel Informationon 02-12 Culture Throat Normal throat kong present Sensitivity Testing: Not Indicated [facility] CT THORAX W/ CONTRASTon - CT THORAX W/ CONTRAST ORIGINAL EXAMINATION: CT OF THE CHEST WITH CONTRAST 02/10/2024 2:04 pm TECHNIQUE: CT of the chest was performed with the administration of intravenous contrast. Multiplanar reformatted images are provided for review. Automated exposure control, iterative reconstruction, and/or weight based adjustment of the mA/kV was utilized to reduce the radiation dose to as low as reasonably achievable. COMPARISON: None. HISTORY: ORDERING SYSTEM PROVIDED HISTORY: Reason for Exam: lymphadenopathy seen on MRI No history of cancer, no history of smoking FINDINGS: Mediastinum: Heart size is normal. No significant pericardial effusion. Major vessels are normal in caliber. Multiple enlarged lymph nodes seen within mediastinum as follows Right upper posterior paratracheal measuring 13.2 mm (series 3, image 55) Left upper paratracheal measuring 13.4 mm Left lower paratracheal 14.7 mm Precarinal/right lower paratracheal chronic 1 mm Right hilar 14 mm Left hilar 11 mm Aortopulmonary window 10 mm Subcarinal 20 mm Lungs/pleura: Solid nodule measuring 3.5 mm in right middle lobe (series 3, image 205). Solid 3 mm nodule right upper lobe (series 3, image 156). Nodular appearing opacity likely atelectatic/fibrotic in lingula. No focal consolidation. No mass lesions seen. No pleural effusion or pneumothorax. Upper Abdomen: Visualized upper abdomen unremarkable. Soft Tissues/Bones: No aggressive osseous lesion. Mild degenerative changes in the spine. IMPRESSION: 1. Multiple enlarged mediastinal lymph nodes as described above. Recommend short-term follow-up CT of the chest to exclude any reactive etiology. If persistent a lymphoproliferative process would be considered and soft tissue sampling would be recommended. 2. Solid nodules largest 3.5 mm in right middle lobe. See recommendations below. 3. Nodular appearing opacity likely atelectatic/fibrotic in lingula. I have personally reviewed the images of this examination and agree with the resident's findings and interpretation. RECOMMENDATIONS: Multiple pulmonary nodules. Most significant: Right solid pulmonary nodule within the upper lobe measuring 3 mm. Per Fleischner Society Guidelines, if patient is low risk for malignancy, no routine follow-up imaging is recommended. If patient is high risk for malignancy, a non-contrast Chest CT at 12 months is optional. If performed and the nodule is stable at 12 months, no further follow-up is recommended. These guidelines do not apply to immunocompromised patients and patients with cancer. Follow up in patients with significant comorbidities as clinically warranted. For lung cancer screening, adhere to Lung-RADS guidelines. Reference: Radiology. 2017; 284(1):228-43. Interpreted by: Sandip Magana MD Preliminary Report By: Guillermo Lisa Electronically signed By Sandip Magana MD Dictated Date: 02/11/2024 1:12:23 PM Prelim Date: 02/11/2024 2:54:26 PM Sign Date: 02/11/2024 2:54:26 PM Ordering Provider: JEIMY Rea [facility] ([place]) LABORATORYOrdered By: Cynthia Broderick on 02-11-2024 Protein [Mass/Vol] 7.0 G/dL Normal 5.7 - 8.2 G/dL [facility] Comment on above: Interpretive Data: * *Note - New Reference Range in effect 20 SPEon 02-11-2024 Total Protein 7.0 G/dL Normal 5.7-8.2 [facility] ([place]) Comment on above: Result Comment: No te - New Reference Range in effect 20 Performed By: #### S ####[place] [address] [place] [address] MRI SPINE LUMBAR W/ + W/O CO NTRASTon 02-05-2024 MRI SPINE LUMBAR W/ + W/O CONTRAST ORIGINAL EXAMINATION: MRI OF THE LUMBAR SPINE WITHOUT AND WITH CONTRAST 02/04/2024 2:05 pm TECHNIQUE: Multiplanar multisequence MRI of the lumbar spine was performed without and with the administration of intravenous contrast. COMPARISON: CT abdomen pelvis 01/24/2024 HISTORY: ORDERING SYSTEM PROVIDED HISTORY: Reason for Exam: new onset numbness to abdomen FINDINGS: For the purposes of this dictation, there are 5 lumbar type vertebral bodies with the most caudal fully segmented body denoted as L5. Minimal retrolisthesis L5 on S1. Alignment is otherwise maintained. Vertebral body heights are preserved. Diffuse disc desiccation and mild disc height loss throughout the lumbar spine, greatest at L5-S1 where there is type 2 Modic change. No suspicious marrow signal abnormality. Mild type 2 Modic change at L4-5. The conus terminates at a normal level and the nerve roots of the cauda equina appear unremarkable. The paraspinal soft tissues demonstrate incompletely characterized T2 hyperintense right renal lesion which favors a cyst requiring no dedicated imaging follow-up based on this examination. L1-L2: Mild generalized disc bulge without canal or neural foraminal stenosis. L2-L3: Mild generalized disc bulge and facet arthropathy with ligamentum flavum hypertrophy with mild canal stenosis. No significant neural foraminal stenosis. L3-L4: Mild generalized disc bulge, facet arthropathy, and ligamentum flavum hypertrophy with mild canal stenosis. No significant neural foraminal stenosis. L4-L5: Generalized disc bulge with a high-intensity zone of the disc. Facet arthropathy and ligamentum flavum hypertrophy. Mild canal stenosis. Mild bilateral lateral recess stenosis. Moderate left and no significant right neural foraminal stenosis. L5-S1: Facet arthropathy without canal stenosis. Mild left and right neural foraminal stenosis. Suspect left posterior surgical change. IMPRESSION: 1. Mild multilevel degenerative changes with up to mild canal stenosis as above. 2. Moderate left neural foraminal stenosis at L4-L5. Interpreted by: Isabell Mckee MD Preliminary Report By: Isabell Mckee MD Electronically signed By Isabell Mckee MD Dictated Date: 02/05/2024 1:36:07 PM Prelim Date: 02/05/2024 1:41:21 PM Sign Date: 02/05/2024 1:41:21 PM Ordering Provider: JEIMY Rea [facility] ([place] MRI SPINE THORACIC W/O CONTR Angie 02-05-2024 MRI SPINE THORACIC W/O CONTRAST ORIGINAL EXAMINATION: MRI OF THE THORACIC SPINE WITHOUT CONTRAST 02/04/2024 1:30 pm TECHNIQUE: Multiplanar multisequence MRI of the thoracic spine was performed without the administration of intravenous contrast. COMPARISON: None. HISTORY: ORDERING SYSTEM PROVIDED HISTORY: Reason for Exam: new onset numbness to abdomen FINDINGS: Minimal anterolisthesis T2 on T3. Alignment is otherwise maintained. Vertebral body heights are preserved. Multilevel disc desiccation with areas of minimal disc height loss. Multifocal small hemangiomas without visualization of a suspicious marrow signal abnormality. Schmorl's node along the superior endplate of T11 without marrow edema to indicate acuity. The thoracic cord is normal in size and signal intensity with minimal visualization of the central canal. The paraspinal soft tissues demonstrate probable mediastinal and hilar adenopathy, suboptimally assessed by this method. A right hilar lymph node appears to measure 2.3 cm image 21 series 19. A right subcarinal lymph node appears to measure 1.6 cm image 28 series 19. Right paratracheal lymph node appears to measure 1.9 cm. Prevascular adenopathy. There is mild canal stenosis at C6-7 due to a disc osteophyte complex with uncovertebral hypertrophy. Evaluation of the individual thoracic levels demonstrate a few tiny disc bulges but no significant canal or neural foraminal stenosis at any level. There is a perineural root sleeve cyst on the right at T7-8. IMPRESSION: 1. Mild multilevel degenerative changes of the thoracic spine without significant canal or neural foraminal stenosis. 2. Suspected significant mediastinal and hilar adenopathy which could be malignant, suboptimally assessed by this method. Prompt CT of the chest with contrast recommended for further evaluation. Interpreted by: Isabell Mckee MD Preliminary Report By: Isabell Mceke MD Electronically signed By Isabell Mckee MD Dictated Date: 02/05/2024 10:29:47 AM Prelim Date: 02/05/2024 10:38:24 AM Sign Date: 02/05/2024 10:38:24 AM Ordering Provider: JEIMY Rea [facility]) B12on 01-26-2024 Cobalamin (Vitamin B12) [Mass/Vol] 721 pg/mL Normal 211-911 [facility]) Comment on above: Performed By: #### B 12 ####[place] [address] .Auto Diffon 01-24-2024 Basophil, Absolute 0.0 10 3/mcL Normal 0.0-0.2 [facility]) Comment on above: Performed By: #### M DW, GFR, ADIFF, LIP, CBC, CMP, ANEU ####[address] [place], [place] [address] Basophils/100 WBC (Bld) 0.1 % Normal 0.0-2.5 [facility]) Comment on above: Performed By: #### M DW, GFR, ADIFF, LIP, CBC, CMP, ANEU ####[place] [address] [place], [place] [address] Eosinophil, Absolute 0.2 10 3/mcL Normal 0.0-0.4 [facility] ([place]) Comment on above: Performed By: #### M DW, GFR, ADIFF, LIP, CBC, CMP, ANEU ####[place] [address] [place], [place] [address] Eosinophils/100 WBC (Bld) 3.9 % Normal 0.0-7.0 [facility] ([place]) Comment on above: Performed By: #### M DW, GFR, ADIFF, LIP, CBC, CMP, ANEU ####[place] [address] [place], [place] [address] Lymphocyte, Absolute 1.1 10 3/mcL Normal 0.8-3.9 [facility] ([place]) Comment on above: Performed By: #### M DW, GFR, ADIFF, LIP, CBC, CMP, ANEU ####[address] [place], [place] [address] Lymphocytes/100 WBC (Bld) 19.9 % Normal 10.0-50.0 [facility] ([place] Comment on above: Performed By: #### M DW, GFR, ADIFF, LIP, CBC, CMP, ANEU ####[address] [place], [place] [address] Monocyte, Absolute 0.5 10 3/mcL Normal 0.2-1.0 [facility] ([place]) Comment on above: Performed By: #### M DW, GFR, ADIFF, LIP, CBC, CMP, ANEU ####[address] [place], [place] [address] Monocytes/100 WBC (Bld) 9.4 % Normal 1.7-13.0 [facility] ([place]) Comment on above: Performed By: #### M DW, GFR, ADIFF, LIP, CBC, CMP, ANEU ####[address]ai [address] [place], [place] [address] Neutrophils/100 WBC (Bld) 66.4 % Normal 37.0-80.0 [facility] ([place]) Comment on above: Performed By: #### M DW, GFR, ADIFF, LIP, CBC, CMP, ANEU ####[address]ai [address] [place], [place] [address] .GFRon 01-24-2024 GFR Non- 71 ml/min/1.73sqm Normal [facility] ([place]) Comment on above: Result Comment: GFR Population mean for , Non- Americans Ages 20-29 = 116 mL/min/1.73 sq.m. Ages 30-39 = 107 mL/min/1.73 sq.m. Ages 40-49 = 99 mL/min/1.73 sq.m. Ages 50-59 = 93 mL/min/1.73 sq.m. Ages 60-69 = 85 mL/min/1.73 sq.m. Ages 70+ = 75 mL/min/1.73 sq.m. Chronic Kidney Disease: Less than 60 mL/min/1.73 square meters End Stage Renal Disease: Less than 15 mL/min/1.73 square meters Performed By: #### M DW, GFR, ADIFF, LIP, CBC, CMP, ANEU ####[address] [place], [place] [address] GFR 86 ml/min/1.73sqm Normal [facility] ([place]) Comment on above: Result Comment: GFR Population mean for , Non- Americans Ages 20-29 = 116 mL/min/1.73 sq.m. Ages 30-39 = 107 mL/min/1.73 sq.m. Ages 40-49 = 99 mL/min/1.73 sq.m. Ages 50-59 = 93 mL/min/1.73 sq.m. Ages 60-69 = 85 mL/min/1.73 sq.m. Ages 70+ = 75 mL/min/1.73 sq.m. Chronic Kidney Disease: Less than 60 mL/min/1.73 square meters End Stage Renal Disease: Less than 15 mL/min/1.73 square meters Performed By: #### M DW, GFR, ADIFF, LIP, CBC, CMP, ANEU ####[address] [place], [place] [address] .MDWon 01-24-2024 Monocyte Distribution Width See Comment Normal 0.00-20.00 [facility] ([place] Comment on above: Result Comment: MDW testing unable to be performed on [id number] instrumentation. Performed By: #### M DW, GFR, ADIFF, LIP, CBC, CMP, ANEU ####[address] [place], [place] [address] .NEUABSon 01-24-2024 Neutrophil, Absolute 3.9 10 3/mcL Normal 2.9-6.2 [facility] ([place]) Comment on above: Performed By: #### M DW, GFR, ADIFF, LIP, CBC, CMP, ANEU ####[address] [place], [place] [address] .Urinalysis Microscopic (AO) on 01-24-2024 UA Mucous Trace Normal [facility] ([place]) Comment on above: Performed By: #### U A, UAMICAO ####[address] [place], [place] [address] UA RBC 0-5 Abnormal None Seen [facility] ([place] Comment on above: Performed By: #### U A UAMICAO ####[address] [place], [place] [address] UA Squam Epithelial 0-5 Abnormal None Seen [facility] ([place]) Comment on above: Performed By: #### U A UAMICAO ####[address] [place], [place] [address] UA WBC 0-5 Abnormal None Seen [facility] ([place] Comment on above: Performed By: #### U Jimena UAMICAO ####[address] [place], [place] [address] CBCon 01-24-2024 Erythrocyte distribution width (RBC) [Ratio] 13.7 % Normal 11.5-14.5 [facility] ([place]) Comment on above: Performed By: #### M DW, GFR, ADIFF, LIP, CBC, CMP, ANEU ####[address] [place], [place] [address] Hematocrit (Bld) [Volume fraction] 36.8 % Low 37.0-47.0 [facility] ([place] Comment on above: Performed By: #### M DW, GFR, ADIFF, LIP, CBC, CMP, ANEU ####[address] [place], [place] [address] Hgb 12.7 G/dL Normal 12.0-16.0 [facility] ([place] Comment on above: Performed By: #### M DW, GFR, ADIFF, LIP, CBC, CMP, ANEU ####[address] [place], [place] [address] MCH (RBC) [Entitic mass] 29.3 pg Normal 27.0-31.2 [facility] ([place] Comment on above: Performed By: #### M DW, GFR, ADIFF, LIP, CBC, CMP, ANEU ####[address] [place], [place] [address] MCHC 34.5 G/dL Normal 33.0-37.0 [facility] ([place] Comment on above: Performed By: #### M DW, GFR, ADIFF, LIP, CBC, CMP, ANEU ####[address] [place], [place] [address] MCV (RBC) [Entitic vol] 85.0 fL Normal 80.0-94.0 [facility] ([place] Comment on above: Performed By: #### M DW, GFR, ADIFF, LIP, CBC, CMP, ANEU ####[address] [place], [place] [address] Platelet 200 10 3/mcL Normal 130-400 [facility] ([place] Comment on above: Performed By: #### M DW, GFR, ADIFF, LIP, CBC, CMP, ANEU ####[address] [place], [place] [address] Platelet mean volume (Bld) [Entitic vol] 6.8 fL Low 7.4-10.4 [facility] ([place] Comment on above: Performed By: #### M DW, GFR, ADIFF, LIP, CBC, CMP, ANEU ####[address] [place], [place] [address] RBC 4.33 10 6/mcL Normal 4.20-5.40 [facility] ([place] Comment on above: Performed By: #### M DW, GFR, ADIFF, LIP, CBC, CMP, ANEU ####[address]iz[address]vb[address] [place], [place] [address] WBC 5.9 10 3/mcL Normal 4.6-10.8 [facility] ([place] Comment on above: Performed By: #### M DW, GFR, ADIFF, LIP, CBC, CMP, ANEU ####[address] [place], [place] [address] CMPon 01-24-2024 Albumin Level 3.3 G/dL Low 3.4-4.8 [facility] ([place] Comment on above: Performed By: #### M DW, GFR, ADIFF, LIP, CBC, CMP, ANEU ####[address]iz[address]a [address]leg[address]Hw[address] [place], [place] [address] Albumin/Globulin [Mass ratio] 0.9 {ratio} Low 1.1-2.5 [facility] ([place] Comment on above: Performed By: #### M DW, GFR, ADIFF, LIP, CBC, CMP, ANEU ####[place] [address] [place], [place] [address] ALP [Catalytic activity/Vol] 82 U/L Normal 40-135 [facility] ([place] Comment on above: Performed By: #### M DW, GFR, ADIFF, LIP, CBC, CMP, ANEU ####[place] [address] [place], [place] [address] ALT [Catalytic activity/Vol] 43 U/L Normal 14-59 [facility] ([place] Comment on above: Performed By: #### M DW, GFR, ADIFF, LIP, CBC, CMP, ANEU ####[place] [address] [place], [place] [address] AST [Catalytic activity/Vol] 26 U/L Normal 10-40 [facility] ([place] Comment on above: Performed By: #### M DW, GFR, ADIFF, LIP, CBC, CMP, ANEU ####[place] [address] [place], [place] [address] Bili Total 0.4 mg/dL Normal 0.2-1.0 [facility] ([place]) Comment on above: Result Comment: Use of this assay is not recommended for patients undergoing treatment with eltrombopag due to the potential for falsely elevated results. Performed By: #### M DW, GFR, ADIFF, LIP, CBC, CMP, ANEU ####[place] [address] [place], [place] [address] BUN/Creatinine Ratio 17 ratio Normal 7-27 [facility] ([place]) Comment on above: Performed By: #### M DW, GFR, ADIFF, LIP, CBC, CMP, ANEU ####[place] [address] [place], [place] [address] Calcium [Mass/Vol] 8.4 mg/dL Normal 8.4-10.2 [facility] ([place]) Comment on above: Performed By: #### M DW, GFR, ADIFF, LIP, CBC, CMP, ANEU ####[place] [address] [place], [place] [address] Chloride [Moles/Vol] 102 mmol/L Normal 98-107 [facility] ([place]) Comment on above: Performed By: #### M DW, GFR, ADIFF, LIP, CBC, CMP, ANEU ####[address] [place], [place] [address] CO2 [Moles/Vol] 28 mmol/L Normal 23-31 [facility] ([place] Comment on above: Performed By: #### M DW, GFR, ADIFF, LIP, CBC, CMP, ANEU ####[address] [place], [place] [address] Creatinine [Mass/Vol] 0.82 mg/dL Normal 0.55-1.02 [facility] ([place]) Comment on above: Performed By: #### M DW, GFR, ADIFF, LIP, CBC, CMP, ANEU ####[address] [place], [place] [address] Electrolyte Balance 9.0 mEq/L Normal 4.0-15.0 [facility] ([place]) Comment on above: Performed By: #### M DW, GFR, ADIFF, LIP, CBC, CMP, ANEU ####[address] [place], [place] [address] Globulin 3.8 G/dL Normal [facility] ([place] Comment on above: Performed By: #### M DW, GFR, ADIFF, LIP, CBC, CMP, ANEU ####[address] [place], [place] [address] Glucose [Mass/Vol] 122 mg/dL High 80-115 [facility] ([place]) Comment on above: Performed By: #### M DW, GFR, ADIFF, LIP, CBC, CMP, ANEU ####[address] [place], [place] [address] Potassium [Moles/Vol] 3.9 mmol/L Normal 3.5-5.1 [facility] ([place]) Comment on above: Performed By: #### M DW, GFR, ADIFF, LIP, CBC, CMP, ANEU ####[address] [place], [place] [address] Sodium [Moles/Vol] 139 mmol/L Normal 136-145 [facility] ([place]) Comment on above: Performed By: #### M DW, GFR, ADIFF, LIP, CBC, CMP, ANEU ####[address] [place], [place] [address] Total Protein 7.1 G/dL Normal 6.4-8.2 [facility] ([place] Comment on above: Performed By: #### M DW, GFR, ADIFF, LIP, CBC, CMP, ANEU ####[address] [place], [place] [address] Urea nitrogen [Mass/Vol] 14 mg/dL Normal 7-18 [facility] ([place] Comment on above: Performed By: #### M DW, GFR, ADIFF, LIP, CBC, CMP, ANEU ####[address] [place], [place] [address] CT ABDOMEN/PELVIS W/O CONTRA STon 01-24-2024 CT ABDOMEN/PELVIS W/O CONTRAST ADDENDUM ADDENDUM: Moderate to severe facet arthropathy and posterior marginal osteophyte formation at L5-S1 with at least mild to moderate bilateral neural foraminal and spinal canal stenosis. There is also suspected to be at least mild neural foraminal stenosis on the left at L4-L5 secondary to facet arthropathy and small disc protrusion. Interpreted by: Alli Merlos MD Preliminary Report By: Alli Merlos MD Electronically signed By Alli Merlos MD Dictated Date: 01/24/2024 2:32:22 AM Prelim Date: 01/24/2024 2:34:17 AM Sign Date: 01/24/2024 2:34:17 AM Ordering Provider: ELIANE WALDRON ORIGINAL EXAMINATION: CT OF THE ABDOMEN AND PELVIS WITHOUT CONTRAST 01/24/2024 2:15 am TECHNIQUE: CT of the abdomen and pelvis was performed without the administration of intravenous contrast. Multiplanar reformatted images are provided for review. Automated exposure control, iterative reconstruction, and/or weight based adjustment of the mA/kV was utilized to reduce the radiation dose to as low as reasonably achievable. COMPARISON: None. HISTORY: ORDERING SYSTEM PROVIDED HISTORY: Reason for Exam: feeling of numbness in her abdomen starting about a week ago and now having bloating and nausea for several days abdominal pain FINDINGS: Lung bases are clear. Liver, spleen, adrenal glands, pancreas, kidneys, and gallbladder demonstrate no acute abnormalities. Benign-appearing 2.4 cm cyst extends off of the midpole of the right kidney. Small bowel and colon are normal in course and caliber. Appendix is normal. Urinary bladder is normal in appearance. Appendix is normal. Aorta is normal in caliber, scattered atherosclerotic calcification is present along its course. No lymphadenopathy, free air, or free fluid. No suspicious adnexal lesions. IMPRESSION: No acute findings. Interpreted by: Alli Merlos MD Preliminary Report By: Alli Merlos MD Electronically signed By Alli Merlos MD Dictated Date: 01/24/2024 2:22:55 AM Prelim Date: 01/24/2024 2:24:55 AM Sign Date: 01/24/2024 2:24:55 AM Ordering Provider: ELIANE Rea [facility] ([place]) LABORATORYOrdered By: SYSTEM SYSTEM on 01-24-2024 Albumin BCP dye [Mass/Vol] 3.3 G/dL Low 3.4 - 4.8 G/dL AO ADM SS Albumin/Globulin [Mass ratio] 0.9 {ratio} Low 1.1 - 2.5 ratio AO ADM SS ALP [Catalytic activity/Vol] 82 U/L Normal 40 - 135 U/L AO ADM SS ALT With P-5'-P [Catalytic activity/Vol] 43 U/L Normal 14 - 59 U/L AO ADM SS AST With P-5'-P [Catalytic activity/Vol] 26 U/L Normal 10 - 40 U/L AO ADM SS Basophil, Absolute 0.0 103/mcL Normal 0.0 - 0.2 10^3/mcL AO Workflow SS Basophils/100 WBC (Bld) 0.1 % Normal 0.0 - 2.5 % AO Workflow SS Bilirubin [Mass/Vol] 0.4 mg/dL Normal 0.2 - 1 .0 mg/dL AO ADM SS Comment on above: Interpretive Data: U se of this assay is not recommended for patients undergoing treatment with eltrombopag due to the potential for falsely elevated results. Calcium [Mass/Vol] 8.4 mg/dL Normal 8.4 - 10. 2 mg/dL AO ADM SS Chloride [Moles/Vol] 102 mmol/L Normal 98 - 10 7 mmol/L AO ADM SS CO2 [Moles/Vol] 28 mmol/L Normal 23 - 31 mmol/L AO ADM SS Creatinine [Mass/Vol] 0.82 mg/dL Normal 0.55 - 1.02 mg/dL AO ADM SS Electrolyte Balance 9.0 mEq/L Normal 4.0 - 15 .0 mEq/L AO ADM SS Eosinophil, Absolute 0.2 103/mcL Normal 0.0 - 0 .4 10^3/mcL AO Workflow SS Eosinophils/100 WBC (Bld) 3.9 % Normal 0.0 - 7.0 % AO Workflow SS Erythrocyte distribution width (RBC) [Ratio] 13.7 % Normal 11.5 - 14.5 % AO Workflow SS GFR/1.73 sq M.predicted among blacks MDRD (S/P/Bld) [Vol rate/Area] 86 ml/min/1.73sqm Invalid Interpretation Code AO Chemistry S Comment on above: Interpretive Data: GFR Population mean for , Non- Americans Ages 20-29 = 116 mL/min/1.73 sq.m. Ages 30-39 = 107 mL/min/1.73 sq.m. Ages 40-49 = 99 mL/min/1.73 sq.m. Ages 50-59 = 93 mL/min/1.73 sq.m. Ages 60-69 = 85 mL/min/1.73 sq.m. Ages 70+ = 75 mL/min/1.73 sq.m. Chronic Kidney Disease: Less than 60 mL/min/1.73 square meters End Stage Renal Disease: Less than 15 mL/min/1.73 square meters GFR/1.73 sq M.predicted among non-blacks MDRD (S/P/Bld) [Vol rate/Area] 71 ml/min/1.73sqm Invalid Interpretation Code AO Chemistry S Comment on above: Interpretive Data: GFR Population mean for , Non- Americans Ages 20-29 = 116 mL/min/1.73 sq.m. Ages 30-39 = 107 mL/min/1.73 sq.m. Ages 40-49 = 99 mL/min/1.73 sq.m. Ages 50-59 = 93 mL/min/1.73 sq.m. Ages 60-69 = 85 mL/min/1.73 sq.m. Ages 70+ = 75 mL/min/1.73 sq.m. Chronic Kidney Disease: Less than 60 mL/min/1.73 square meters End Stage Renal Disease: Less than 15 mL/min/1.73 square meters Globulin 3.8 G/dL Invalid Interpretation Code AO ADM SS Glucose [Mass/Vol] 122 mg/dL High 80 - 115 mg/dL AO ADM SS Hematocrit (Bld) [Volume fraction] 36.8 % Low 37.0 - 47.0 % AO Workflow SS Hemoglobin (Bld) [Mass/Vol] 12.7 G/dL Normal 12.0 - 16.0 G/dL AO Workflow SS Lipase [Catalytic activity/Vol] 33 U/L Normal 16 - 77 U/L AO ADM SS Lymphocyte, Absolute 1.1 103/mcL Normal 0.8 - 3 .9 10^3/mcL AO Workflow SS Lymphocytes/100 WBC (Bld) 19.9 % Normal 10.0 - 50.0 % AO Workflow SS MCH (RBC) [Entitic mass] 29.3 pg Normal 27.0 - 31.2 pg AO Workflow SS MCHC 34.5 G/dL Normal 33.0 - 37.0 G/dL AO Workflow SS MCV (RBC) [Entitic vol] 85.0 fL Normal 80.0 - 94.0 fL AO Workflow SS Monocyte, Absolute 0.5 103/mcL Normal 0.2 - 1.0 10^3/mcL AO Workflow SS Monocytes/100 WBC (Bld) 9.4 % Normal 1.7 - 13.0 % AO Workflow SS Neutrophil, Absolute 3.9 103/mcL Normal 2.9 - 6 .2 10^3/mcL AO Workflow SS Neutrophils/100 WBC (Bld) 66.4 % Normal 37.0 - 80.0 % AO Workflow SS Platelet mean volume (Bld) [Entitic vol] 6.8 fL Low 7.4 - 10.4 fL AO Workflow SS Platelets (Bld) [#/Vol] 200 103/mcL Normal 130 - 400 10^3/mcL AO Workflow SS Potassium [Moles/Vol] 3.9 mmol/L Normal 3.5 - 5.1 mmol/L AO ADM SS Protein [Mass/Vol] 7.1 G/dL Normal 6.4 - 8.2 G/dL AO ADM SS RBC (Bld) [#/Vol] 4.33 106/mcL Normal 4.20 - 5.4 0 10^6/mcL AO Workflow SS Sodium [Moles/Vol] 139 mmol/L Normal 136 - 145 mmol/L AO ADM SS Urea nitrogen [Mass/Vol] 14 mg/dL Normal 7 - 18 mg/dL AO ADM SS Urea nitrogen/Creatinine [Mass ratio] 17 ratio Normal 7 - 27 ratio AO ADM SS WBC (Bld) [#/Vol] 5.9 103/mcL Normal 4.6 - 10.8 10^3/mcL AO Workflow SS LABORATORYOrdered By: Naun Luna on 01-24-2024 Appearance (U) Clear (01/24/24 1:56 AM) Normal Clear AO Auto Urine SS Bilirubin Ql (U) Negative (01/24/24 1:56 AM) Normal Negative AO Auto Urine SS Color (U) Yellow (01/24/24 1:56 AM) Normal AO Auto Urine SS Glucose Test strip (U) [Mass/Vol] Negative Normal Negative AO Auto Urine SS Hemoglobin Auto test strip (U) [Mass/Vol] Trace *ABN* (01/24/24 1:56 AM) Invalid Interpretation Code Negative AO Auto Urine SS Ketones Ql (U) Negative Normal Negative AO Auto Ur ine SS Monocyte distribution width Auto (Bld) [Entitic vol] See Comment Invalid Interpretation Code 0.00 - 20.00 AO Hematology S Comment on above: Result Comment: MDW testing unable to be performed on [id number] instrumentation. UA Leuk Est Negative (01/24/24 1:56 AM) Normal Negative AO Auto Urine SS UA Mucous Trace /HPF Normal AO Auto Urine SS UA Nitrite Negative (01/24/24 1:56 AM) Normal Negative AO Auto Urine SS UA pH 5.5 (01/24/24 1:56 AM) Normal 5.0 - 8.0 AO Auto Urine SS UA Protein 30 mg/dL Normal Negative AO Auto Urine SS UA RBC 0-5 /HPF Invalid Interpretation Code None Seen AO Auto Urine SS UA Spec Grav >=1.030 *ABN* (01/24/24 1:56 AM) Invalid Interpretation Code 1.015-1.025 AO Auto Urine SS UA Specimen Type Clean Catch 3 (01/24/24 1:56 AM) Normal AO Auto Urine SS Comment on above: Result Comment: Spec imen volumes less than 5 ml may not yield chemical or microscopic results truly reflective of renal function or general metabolic status. UA Squam Epithelial 0-5 /HPF Invalid Interpretation Code None Seen AO Auto Urine SS UA Urobilinogen 0.2 E.U./dL Normal 0.2-1.0 AO Auto Urine SS WBC LM.HPF (Urine sed) [#/Area] 0-5 /HPF Invalid Interpretation Code None Seen AO Auto Urine SS LIPon 01-24-2024 Lipase Level 33 U/L Normal 16-77 [facility] ([place] Comment on above: Performed By: #### M DW, GFR, ADIFF, LIP, CBC, CMP, ANEU ####Lai [address] [place], [place] [address] UAon 01-24-2024 Color (U) Yellow Normal [facility] ([place] Comment on above: Performed By: #### U A, UAMICAO ####[address] [place], [place] [address] Glucose (U) [Mass/Vol] Negative Normal Negative [facility] ([place] Comment on above: Performed By: #### U A, UAMICAO ####[address] [place], [place] [address] Ketones Ql (U) Negative Normal Negative [facility] ([place] Comment on above: Performed By: #### U A, UAMICAO ####[address] [place], [place] [address] UA Appear Clear Normal Clear [facility] ([place] Comment on above: Performed By: #### U A, UAMICAO ####[address] [place], [place] [address] UA Blood Trace Abnormal Negative [facility] ([place] Comment on above: Performed By: #### U A, UAMICAO ####[address] [place], [place] [address] UA Leuk Est Negative Normal Negative [facility] ([place] Comment on above: Performed By: #### U A, UAMICAO ####[address] [place], [place] [address] UA Nitrite Negative Normal Negative [facility] ([place] Comment on above: Performed By: #### U A, UAMICAO ####[address] [place], [place] [address] UA pH 5.5 Normal 5.0 - 8.0 [facility] ([place] Comment on above: Performed By: #### U A, UAMICAO ####[address] [place], [place] [address] UA Protein 30 mg/dL Normal Negative [facility] ([place] Comment on above: Performed By: #### U A, UAMICAO ####[address] [place], [place] [address] UA Spec Grav >=1.030 Abnormal 1.015-1.025 [facility] ([place] Comment on above: Performed By: #### U A, UAMICAO ####[address] [place], [place] [address] UA Specimen Type Clean Catch Normal [facility] ([place] Comment on above: Result Comment: Spec imen volumes less than 5 ml may not yield chemical or microscopic results truly reflective of renal function or general metabolic status. Performed By: #### U A, UAMICAO ####[address] [place], [place] [address] UA Urobilinogen 0.2 E.U./dL Normal 0.2-1.0 [facility] ([place] Comment on above: Performed By: #### U A, UAMICAO ####[address] [place], [place] [address] Urobilinogen (U) [Mass/Vol] Negative Normal Negative [facility] ([place] Comment on above: Performed By: #### U A, UAMICAO ####[address] [place], [place] [address] TSHon 12-30-2023 TSH Qn 3.63 m[IU]/L Normal 0.36-3.74 [facility] ([place] Comment on above: Performed By: #### T SH ####[address] [place], [place] [address] .Auto Diffon 12-15-2023 Basophil, Absolute 0.1 10 3/mcL Normal 0.0-0.2 [facility] ([place]) Comment on above: Performed By: #### G FR, ADIFF, PBNP, ANEU, MDW, TROPHS, BMP, CBC ####[address]ai [address] [place], [place] [address] Basophils/100 WBC (Bld) 0.6 % Normal 0.0-2.5 [facility] ([place] Comment on above: Performed By: #### G FR, ADIFF, PBNP, ANEU, MDW, TROPHS, BMP, CBC ####[address]ai [address] [place], [place] [address] Eosinophil, Absolute 0.1 10 3/mcL Normal 0.0-0.4 [facility] ([place]) Comment on above: Performed By: #### G FR, ADIFF, PBNP, ANEU, MDW, TROPHS, BMP, CBC ####[address] [place], [place] [address] Eosinophils/100 WBC (Bld) 1.8 % Normal 0.0-7.0 [facility] ([place] Comment on above: Performed By: #### G FR, ADIFF, PBNP, ANEU, MDW, TROPHS, BMP, CBC ####[address] [place], [place] [address] Lymphocyte, Absolute 1.8 10 3/mcL Normal 0.8-3.9 [facility] ([place] Comment on above: Performed By: #### G FR, ADIFF, PBNP, ANEU, MDW, TROPHS, BMP, CBC ####[address] [place], [place] [address] Lymphocytes/100 WBC (Bld) 21.7 % Normal 10.0-50.0 [facility] ([place] Comment on above: Performed By: #### G FR, ADIFF, PBNP, ANEU, MDW, TROPHS, BMP, CBC ####[address]ai [address] [place], [place] [address] Monocyte, Absolute 0.5 10 3/mcL Normal 0.2-1.0 [facility] ([place] Comment on above: Performed By: #### G FR, ADIFF, PBNEO, FABRICE, LULÚ, TROPHS, BMP, CBC ####[address] [place], [place] [address] Monocytes/100 WBC (Bld) 6.6 % Normal 1.7-13.0 [facility] ([place] Comment on above: Performed By: #### G FR, ADIFF, PBNEO, FABRICE, W, TROPHS, BMP, CBC ####[address] [place], [place] [address] Neutrophils/100 WBC (Bld) 69.3 % Normal 37.0-80.0 [facility] ([place] Comment on above: Performed By: #### G FR, ADIFF, PBNEO, FABRICE, W, TROPHS, BMP, CBC ####[address] [place], [place] [address] .GFRon 12-15-2023 GFR 79 ml/min/1.73sqm Normal [facility] ([place] Comment on above: Result Comment: GFR Population mean for , Non- Americans Ages 20-29 = 116 mL/min/1.73 sq.m. Ages 30-39 = 107 mL/min/1.73 sq.m. Ages 40-49 = 99 mL/min/1.73 sq.m. Ages 50-59 = 93 mL/min/1.73 sq.m. Ages 60-69 = 85 mL/min/1.73 sq.m. Ages 70+ = 75 mL/min/1.73 sq.m. Chronic Kidney Disease: Less than 60 mL/min/1.73 square meters End Stage Renal Disease: Less than 15 mL/min/1.73 square meters Performed By: #### G FR, ADIFF, PBNP, FABRICE, W, TROPHS, BMP, CBC ####[address] [place], [place] [address] GFR Non- 66 ml/min/1.73sqm Normal [facility] ([place] Comment on above: Result Comment: GFR Population mean for , Non- Americans Ages 20-29 = 116 mL/min/1.73 sq.m. Ages 30-39 = 107 mL/min/1.73 sq.m. Ages 40-49 = 99 mL/min/1.73 sq.m. Ages 50-59 = 93 mL/min/1.73 sq.m. Ages 60-69 = 85 mL/min/1.73 sq.m. Ages 70+ = 75 mL/min/1.73 sq.m. Chronic Kidney Disease: Less than 60 mL/min/1.73 square meters End Stage Renal Disease: Less than 15 mL/min/1.73 square meters Performed By: #### G , AMANDA, SHARLA, FABRICE, LULÚ, TROPHS, BMP, CBC ####[place] [address] [place], [place] [address] .MDWon 12-15-2023 Monocyte Distribution Width 19.62 Normal 0.00-20.00 [facility] [place] Comment on above: Result Comment: For ED adult patients suspected of sepsis, MDW<=20.0 does not rule out sepsis or risk of sepsis Performed By: #### G , AMANDA, SHARLA, FABRICE, LULÚ, TROPHS, BMP, CBC ####[place] [place], [place] [address] .NEUABSon 12-15-2023 Neutrophil, Absolute 5.6 10 3/mcL Normal 2.9-6.2 [facility] ([place] Comment on above: Performed By: #### Sunitha JASSO, SHARLA PATEL, LULÚ AVINA, TROPHS, BMP, CBC ####[place] [address] [place], [place] [address] BMPon 12-15-2023 BUN/Creatinine Ratio 18 ratio Normal 7-27 [facility] ([place]) Comment on above: Performed By: #### G , SHARLA PATEL, LULÚ AVINA, TROPHS, BMP, CBC ####[place] [address] [place], [place] [address] Calcium [Mass/Vol] 9.0 mg/dL Normal 8.4-10.2 [facility] ([place]) Comment on above: Performed By: #### Sunitha JASSO, SHARLA PATEL, FABRICE, LULÚ, TROPHS, BMP, CBC ####[facility] [place], [place] [address] Chloride [Moles/Vol] 100 mmol/L Normal 98-107 [facility] ([place] Comment on above: Performed By: #### G FR, ADKATHI, PBNEO, FABRICE, MDW, TROPHS, BMP, CBC ####[address] [place], [place] [address] CO2 [Moles/Vol] 30 mmol/L Normal 23-31 [facility] ([place] Comment on above: Performed By: #### G , ADKATHI, PBNEO, FABRICE, W, TROPHS, BMP, CBC ####[address] [place], [place] [address] Creatinine [Mass/Vol] 0.88 mg/dL Normal 0.55-1.02 [facility] ([place]) Comment on above: Performed By: #### G , ADKATHI, SHARLA, FABRICE, W, TROPHS, BMP, CBC ####[address] [place], [place] [address] Electrolyte Balance 9.0 mEq/L Normal 4.0-15.0 [facility] ([place]) Comment on above: Performed By: #### G , ADKATHI, SHARLA, FABRICE, W, TROPHS, BMP, CBC ####[address] [place], [place] [address] Glucose [Mass/Vol] 106 mg/dL Normal 80-115 [facility] ([place]) Comment on above: Performed By: #### G FR, ADKATHI, PBNEO, FABRICE, W, TROPHS, BMP, CBC ####[address] [place], [place] [address] Potassium [Moles/Vol] 3.6 mmol/L Normal 3.5-5.1 [facility] ([place]) Comment on above: Performed By: #### G , ADKATHI, PBNEO, FABRICE, MDW, TROPHS, BMP, CBC ####[address] [place], [place] [address] Sodium [Moles/Vol] 139 mmol/L Normal 136-145 [facility] ([place]) Comment on above: Performed By: #### G , AMANDA, SHARLA, FABRICE, LULÚ, TROPHS, BMP, CBC ####[address] [place], [place] [address] Urea nitrogen [Mass/Vol] 16 mg/dL Normal 7-18 [facility] ([place]) Comment on above: Performed By: #### G , AMANDA, SHARLA, FABRICE, LULÚ, TROPHS, BMP, CBC ####[address] [place], [place] [address] CBCon 12-15-2023 Erythrocyte distribution width (RBC) [Ratio] 13.3 % Normal 11.5-14.5 [facility] ([place]) Comment on above: Performed By: #### G , AMANDA, SHARLA, FABRICE, LULÚ, ARMANDOS, BMP, CBC ####[address] [place], [place] [address] Hematocrit (Bld) [Volume fraction] 39.6 % Normal 37.0-47.0 [facility] ([place]) Comment on above: Performed By: #### G AMANDA JASSO PBNP, LULÚ AVINA, ARMANDOS, BMP, CBC ####[address] [place], [place] [address] Hgb 13.7 G/dL Normal 12.0-16.0 [facility] ([place]) Comment on above: Performed By: #### G AMANDA JASSO PBNP, LULÚ AVINA, TROPHS, BMP, CBC ####[address] [place], [place] [address] MCH (RBC) [Entitic mass] 29.7 pg Normal 27.0-31.2 [facility] ([place] Comment on above: Performed By: #### G , AMANDA, SHARLA, FABRICE, LULÚ, TROPHS, BMP, CBC ####[address] [place], [place] [address] MCHC 34.7 G/dL Normal 33.0-37.0 [facility] ([place] Comment on above: Performed By: #### G FR, ADKATHI, PBNP, ANEU, MDW, TROPHS, BMP, CBC ####[address] [place], [place] [address] MCV (RBC) [Entitic vol] 85.7 fL Normal 80.0-94.0 [facility] ([place] Comment on above: Performed By: #### G FR, ADIFF, PBNP, ANEU, MDW, TROPHS, BMP, CBC ####[address] [place], [place] [address] Platelet 262 10 3/mcL Normal 130-400 [facility] ([place] Comment on above: Performed By: #### G FR, ADIFF, PBNP, ANEU, MDW, TROPHS, BMP, CBC ####[address] [place], [place] [address] Platelet mean volume (Bld) [Entitic vol] 6.4 fL Low 7.4-10.4 [facility] ([place] Comment on above: Performed By: #### G FR, ADKATHI, PBNP, ANEU, MDW, TROPHS, BMP, CBC ####[address] [place], [place] [address] RBC 4.62 10 6/mcL Normal 4.20-5.40 [facility] ([place] Comment on above: Performed By: #### Sunitha FR, ADKATHI, PBNP, ANEU, MDW, TROPHS, BMP, CBC ####[address] [place], [place] [address] WBC 8.1 10 3/mcL Normal 4.6-10.8 [facility] ([place] Comment on above: Performed By: #### G FR, ADIFF, PBNP, ANEU, MDW, TROPHS, BMP, CBC ####[address] [place], [place] [address] LABORATORYOrdered By: SYSTEM SYSTEM on 12-15-2023 Basophil, Absolute 0.1 103/mcL Normal 0.0 - 0.2 10^3/mcL AO Workflow SS Basophils/100 WBC (Bld) 0.6 % Normal 0.0 - 2.5 % AO Workflow SS Calcium [Mass/Vol] 9.0 mg/dL Normal 8.4 - 10. 2 mg/dL AO ADM SS Chloride [Moles/Vol] 100 mmol/L Normal 98 - 10 7 mmol/L AO ADM SS CO2 [Moles/Vol] 30 mmol/L Normal 23 - 31 mmol/L AO ADM SS Creatinine [Mass/Vol] 0.88 mg/dL Normal 0.55 - 1.02 mg/dL AO ADM SS Electrolyte Balance 9.0 mEq/L Normal 4.0 - 15 .0 mEq/L AO ADM SS Eosinophil, Absolute 0.1 103/mcL Normal 0.0 - 0 .4 10^3/mcL AO Workflow SS Eosinophils/100 WBC (Bld) 1.8 % Normal 0.0 - 7.0 % AO Workflow SS Erythrocyte distribution width (RBC) [Ratio] 13.3 % Normal 11.5 - 14.5 % AO Workflow SS GFR/1.73 sq M.predicted among blacks MDRD (S/P/Bld) [Vol rate/Area] 79 ml/min/1.73sqm Invalid Interpretation Code AO Chemistry S Comment on above: Interpretive Data: GFR Population mean for , Non- Americans Ages 20-29 = 116 mL/min/1.73 sq.m. Ages 30-39 = 107 mL/min/1.73 sq.m. Ages 40-49 = 99 mL/min/1.73 sq.m. Ages 50-59 = 93 mL/min/1.73 sq.m. Ages 60-69 = 85 mL/min/1.73 sq.m. Ages 70+ = 75 mL/min/1.73 sq.m. Chronic Kidney Disease: Less than 60 mL/min/1.73 square meters End Stage Renal Disease: Less than 15 mL/min/1.73 square meters GFR/1.73 sq M.predicted among non-blacks MDRD (S/P/Bld) [Vol rate/Area] 66 ml/min/1.73sqm Invalid Interpretation Code AO Chemistry S Comment on above: Interpretive Data: GFR Population mean for , Non- Americans Ages 20-29 = 116 mL/min/1.73 sq.m. Ages 30-39 = 107 mL/min/1.73 sq.m. Ages 40-49 = 99 mL/min/1.73 sq.m. Ages 50-59 = 93 mL/min/1.73 sq.m. Ages 60-69 = 85 mL/min/1.73 sq.m. Ages 70+ = 75 mL/min/1.73 sq.m. Chronic Kidney Disease: Less than 60 mL/min/1.73 square meters End Stage Renal Disease: Less than 15 mL/min/1.73 square meters Glucose [Mass/Vol] 106 mg/dL Normal 80 - 115 mg/dL AO ADM SS Hematocrit (Bld) [Volume fraction] 39.6 % Normal 37.0 - 47.0 % AO Workflow SS Hemoglobin (Bld) [Mass/Vol] 13.7 G/dL Normal 12.0 - 16.0 G/dL AO Workflow SS Lymphocyte, Absolute 1.8 103/mcL Normal 0.8 - 3 .9 10^3/mcL AO Workflow SS Lymphocytes/100 WBC (Bld) 21.7 % Normal 10.0 - 50.0 % AO Workflow SS MCH (RBC) [Entitic mass] 29.7 pg Normal 27.0 - 31.2 pg AO Workflow SS MCHC 34.7 G/dL Normal 33.0 - 37.0 G/dL AO Workflow SS MCV (RBC) [Entitic vol] 85.7 fL Normal 80.0 - 94.0 fL AO Workflow SS Monocyte distribution width Auto (Bld) [Entitic vol] 19.62 1 Normal 0.00 - 20.00 AO Workflow SS Comment on above: Result Comment: For ED adult patients suspected of sepsis, MDW<=20.0 does not rule out sepsis or risk of sepsis Monocyte, Absolute 0.5 103/mcL Normal 0.2 - 1.0 10^3/mcL AO Workflow SS Monocytes/100 WBC (Bld) 6.6 % Normal 1.7 - 13.0 % AO Workflow SS Natriuretic peptide.B prohormone N-Terminal [Mass/Vol] 161 pg/mL High 0 - 125 pg/mL AO ADM SS Comment on above: Interpretive Data: N T-proBNP results of less than 300 pg/mL effectively rules out acute congestive heart failure with 99% negative predictive value. Neutrophil, Absolute 5.6 103/mcL Normal 2.9 - 6 .2 10^3/mcL AO Workflow SS Neutrophils/100 WBC (Bld) 69.3 % Normal 37.0 - 80.0 % AO Workflow SS Platelet mean volume (Bld) [Entitic vol] 6.4 fL Low 7.4 - 10.4 fL AO Workflow SS Platelets (Bld) [#/Vol] 262 103/mcL Normal 130 - 400 10^3/mcL AO Workflow SS Potassium [Moles/Vol] 3.6 mmol/L Normal 3.5 - 5.1 mmol/L AO ADM SS RBC (Bld) [#/Vol] 4.62 106/mcL Normal 4.20 - 5.4 0 10^6/mcL AO Workflow SS Sodium [Moles/Vol] 139 mmol/L Normal 136 - 145 mmol/L AO ADM SS Troponin I.cardiac DL <= 0.01 ng/mL [Mass/Vol] 6 ng/L Normal 0 - 51 ng/L AO ADM SS Comment on above: Interpretive Data: H igh Sensitive Troponin I Reference Ranges: Female: 0-51 ng/L Male: 0-76 ng/L Testing performed on [employer] using a homogeneous sandwich chemiluminescent immunoassay based on [employer] technology. Urea nitrogen [Mass/Vol] 16 mg/dL Normal 7 - 18 mg/dL AO ADM SS Urea nitrogen/Creatinine [Mass ratio] 18 ratio Normal 7 - 27 ratio AO ADM SS WBC (Bld) [#/Vol] 8.1 103/mcL Normal 4.6 - 10.8 10^3/mcL AO Workflow SS PBNPon 12-15-2023 Natriuretic peptide B (Bld) [Mass/Vol] 161 pg/mL High 0-125 [facility] ([place]) Comment on above: Result Comment: NT-p roBNP results of less than 300 pg/mL effectively rules out acute congestive heart failure with 99% negative predictive value. Performed By: #### G AMANDA JASSO PBNP, LULÚ AVINA, TROPHS, BMP, CBC ####[address] [place], [place] [address] [facility] 12-15-2023 High Sensitivity Troponin I 6 ng/L Normal 0-51 [facility] ([place]) Comment on above: Result Comment: High Sensitive Troponin I Reference Ranges: Female: 0-51 ng/L Male: 0-76 ng/L Testing performed on [employer] using a homogeneous sandwich chemiluminescent immunoassay based on [employer] technology. Performed By: #### G FR, ADIFF, PBNP, ANEU, MDW, TROPHS, BMP, CBC ####[address] [place], [place] [address] XR CHEST 1 VIEWon 12-15-2023 XR CHEST 1 VIEW ORIGINAL EXAMINATION: ONE XRAY VIEW OF THE CHEST12/15/2023 4:38 pm COMPARISON: Chest radiograph 12/25/2021 HISTORY: ORDERING SYSTEM PROVIDED HISTORY: Reason for Exam: chest pain FINDINGS: Cardiomediastinal contours are within normal limits. No focal consolidation or pulmonary edema. No pneumothorax or large pleural effusion. No acute osseous abnormalities. IMPRESSION: No acute radiographic findings. I have personally reviewed the images of this examination and agree with the resident's findings and interpretation. Interpreted by: Damion Woodson Preliminary Report By: Cinda Enrique Electronically signed By Damion Woodson Dictated Date: 12/15/2023 4:42:38 PM Prelim Date: 12/15/2023 4:44:40 PM Sign Date: 12/15/2023 4:47:53 PM Ordering Provider: RANDELL MARI Normal [facility] ([place]) .GFRon 12-07-2023 GFR 124 ml/min/1.73sqm Normal [facility] ([place]) Comment on above: Result Comment: GFR Population mean for , Non- Americans Ages 20-29 = 116 mL/min/1.73 sq.m. Ages 30-39 = 107 mL/min/1.73 sq.m. Ages 40-49 = 99 mL/min/1.73 sq.m. Ages 50-59 = 93 mL/min/1.73 sq.m. Ages 60-69 = 85 mL/min/1.73 sq.m. Ages 70+ = 75 mL/min/1.73 sq.m. Chronic Kidney Disease: Less than 60 mL/min/1.73 square meters End Stage Renal Disease: Less than 15 mL/min/1.73 square meters Performed By: #### L IPID, PBNP, CMP, GFR, FT4, TSH, FT3 ####[address] [place], [place] [address] GFR Non- 102 ml/min/1.73sqm Normal [facility] ([place]) Comment on above: Result Comment: GFR Population mean for , Non- Americans Ages 20-29 = 116 mL/min/1.73 sq.m. Ages 30-39 = 107 mL/min/1.73 sq.m. Ages 40-49 = 99 mL/min/1.73 sq.m. Ages 50-59 = 93 mL/min/1.73 sq.m. Ages 60-69 = 85 mL/min/1.73 sq.m. Ages 70+ = 75 mL/min/1.73 sq.m. Chronic Kidney Disease: Less than 60 mL/min/1.73 square meters End Stage Renal Disease: Less than 15 mL/min/1.73 square meters Performed By: #### L IPID, PBNP, CMP, GFR, FT4, TSH, FT3 ####[address] [place], [place] [address] CMPon 12-07-2023 Albumin Level 3.5 G/dL Normal 3.4-4.8 [facility] ([place] Comment on above: Performed By: #### L IPID, PBNP, CMP, GFR, FT4, TSH, FT3 ####[address] [place], [place] [address] Albumin/Globulin [Mass ratio] 0.9 {ratio} Low 1.1-2.5 [facility] ([place] Comment on above: Performed By: #### L IPID, PBNP, CMP, GFR, FT4, TSH, FT3 ###[address] [place], [place] [address] ALP [Catalytic activity/Vol] 83 U/L Normal 40-135 [facility] ([place]) Comment on above: Performed By: #### L IPID, PBNP, CMP, GFR, FT4, TSH, FT3 ####[address] [place], [place] [address] ALT [Catalytic activity/Vol] 41 U/L Normal 14-59 [facility] ([place] Comment on above: Performed By: #### L IPID, PBNP, CMP, GFR, FT4, TSH, FT3 ####[address] [place], [place] [address] AST [Catalytic activity/Vol] 27 U/L Normal 10-40 [facility] ([place] Comment on above: Performed By: #### L IPID, PBNP, CMP, GFR, FT4, TSH, FT3 ####[address] [place], [place] [address] Bili Total 0.5 mg/dL Normal 0.2-1.0 [facility] ([place]) Comment on above: Result Comment: Use of this assay is not recommended for patients undergoing treatment with eltrombopag due to the potential for falsely elevated results. Performed By: #### L IPID, PBNP, CMP, GFR, FT4, TSH, FT3 ####[address] [place], [place] [address] BUN/Creatinine Ratio 20 ratio Normal 7-27 [facility] ([place]) Comment on above: Performed By: #### L IPID, PBNP, CMP, GFR, FT4, TSH, FT3 ####[address] [place], [place] [address] Calcium [Mass/Vol] 9.3 mg/dL Normal 8.4-10.2 [facility] ([place]) Comment on above: Performed By: #### L IPID, PBNP, CMP, GFR, FT4, TSH, FT3 ####[address] [place], [place] [address] Chloride [Moles/Vol] 102 mmol/L Normal 98-107 [facility] ([place]) Comment on above: Performed By: #### L IPID, PBNP, CMP, GFR, FT4, TSH, FT3 ####[address] [place], [place] [address] CO2 [Moles/Vol] 28 mmol/L Normal 23-31 [facility] ([place] Comment on above: Performed By: #### L IPID, PBNP, CMP, GFR, FT4, TSH, FT3 ####[address] [place], [place] [address] Creatinine [Mass/Vol] 0.60 mg/dL Normal 0.55-1.02 [facility] ([place]) Comment on above: Performed By: #### L IPID, PBNP, CMP, GFR, FT4, TSH, FT3 ####[address] [place], [place] [address] Electrolyte Balance 9.0 mEq/L Normal 4.0-15.0 [facility] ([place]) Comment on above: Performed By: #### L IPID, PBNP, CMP, GFR, FT4, TSH, FT3 ####[address] [place], [place] [address] Globulin 4.0 G/dL Normal [facility] ([place] Comment on above: Performed By: #### L IPID, PBNP, CMP, GFR, FT4, TSH, FT3 ####[address] [place], [place] [address] Glucose [Mass/Vol] 93 mg/dL Normal 80-115 [facility] ([place]) Comment on above: Performed By: #### L IPID, PBNP, CMP, GFR, FT4, TSH, FT3 ####[address] [place], [place] [address] Potassium [Moles/Vol] 4.7 mmol/L Normal 3.5-5.1 [facility] ([place]) Comment on above: Performed By: #### L IPID, PBNP, CMP, GFR, FT4, TSH, FT3 ####[address] [place], [place] [address] Sodium [Moles/Vol] 139 mmol/L Normal 136-145 [facility] ([place]) Comment on above: Performed By: #### L IPID, PBNP, CMP, GFR, FT4, TSH, FT3 ####[address] [place], [place] [address] Total Protein 7.5 G/dL Normal 6.4-8.2 [facility] ([place] Comment on above: Performed By: #### L IPID, PBNP, CMP, GFR, FT4, TSH, FT3 ####[address] [place], [place] [address] Urea nitrogen [Mass/Vol] 12 mg/dL Normal 7-18 [facility] ([place]) Comment on above: Performed By: #### L IPID, PBNP, CMP, GFR, FT4, TSH, FT3 ####[address] [place], [place] [address] FT3on 12-07-2023 Free T3 [Mass/Vol] 2.45 pg/mL Normal 2.30-4.00 [facility] ([place]) Comment on above: Performed By: #### L IPID, PBNP, CMP, GFR, FT4, TSH, FT3 ####[address] [place], [place] [address] FT4on 12-07-2023 Free T4 [Mass/Vol] 0.88 ng/dL Normal 0.76-1.46 [facility] ([place]) Comment on above: Performed By: #### L IPID, PBNP, CMP, GFR, FT4, TSH, FT3 ####[address] [place], [place] [address] LIPIDon 12-07-2023 Cholesterol [Mass/Vol] 166 mg/dL Normal 0-200 [facility] ([place] Comment on above: Result Comment: Chol esterol Reference Interval: Less than 200 Desirable 200-239 Borderline high risk 240 and above High risk Performed By: #### L IPID, PBNP, CMP, GFR, FT4, TSH, FT3 ####[address] [place], [place] [address] Cholesterol in HDL [Mass/Vol] 44 mg/dL Normal 40-60 [facility] ([place] Comment on above: Performed By: #### L IPID, PBNP, CMP, GFR, FT4, TSH, FT3 ####[address] [place], [place] [address] Cholesterol in LDL [Mass/Vol] 106 mg/dL Normal 0-130 [facility] ([place] Comment on above: Performed By: #### L IPID, PBNP, CMP, GFR, FT4, TSH, FT3 ####[address] [place], [place] [address] Triglyceride [Mass/Vol] 79 mg/dL Normal 0-150 [facility] ([place] Comment on above: Result Comment: Trig lyceride Reference Interval: Less than 150 Normal 150-199 Borderline high risk 200-499 High risk 500 or higher Very high risk Performed By: #### L IPID, PBNP, CMP, GFR, FT4, TSH, FT3 ####[address] [place], [place] [address] MALBRon 12-07-2023 U Creatinine 68.0 mg/dL Normal 28.0-117.0 [facility] ([place] Comment on above: Performed By: #### M ALBR ####[address] [place], [place] [address] U Microalb 970 mcg/dL Normal [facility] ([place] Comment on above: Performed By: #### M ALBR ####[address] [place], [place] [address] U Ratio Alb/Cre 14 mcg/mg Normal 0-30 [facility] ([place] Comment on above: Performed By: #### M ALBR ####[address] [place], [place] [address] PBNPon 12-07-2023 Natriuretic peptide B (Bld) [Mass/Vol] 174 pg/mL High 0-125 [facility] ([place] Comment on above: Result Comment: NT-p roBNP results of less than 300 pg/mL effectively rules out acute congestive heart failure with 99% negative predictive value. Performed By: #### L IPID, PBNP, CMP, GFR, FT4, TSH, FT3 ####[address] [place], [place] [address] TSHon 12-07-2023 TSH Qn 3.95 m[IU]/L High 0.36-3.74 [facility] ([place] Comment on above: Performed By: #### L IPID, PBNP, CMP, GFR, FT4, TSH, FT3 ####[address] [place], [place] [address] [facility]COon [facility]-02-2023 [facility] [id number] Author: Coordinator, Mammography Service: ? Author Type: Physician Type: Letter Filed: 07/06/2023 11:32 PM Note Text: July 02, 2023 PID: [id number] Shasta Grace [address] [place] [address] Dear Ms. Grace, We are pleased to inform you that the results of your recent breast imaging exam on 07/01/2023 are normal. Early detection of cancer is very important. We also understand recommendations regarding breast cancer screening are controversial. Please discuss with your primary care provider which strategy is best for you and whether a mammogram is right for you. Your imaging studies and report will be kept on file at [facility] as part of your permanent medical record and are available for your continuing care. Thank you for allowing us to help in meeting your health care needs. Sincerely, Dr. Ortez Interpreting Radiologist [facility] (Normal over 40) Normal [facility] SCREENINGon 07-01-2023 [facility] SCREENING * * *Final Report* * * DATE OF EXAM: Jul 01 2023 9:33AM [facility] [id number] - [facility] SCREENING / PROCEDURE REASON: multiple diagnoses * * * * Physician Interpretation * * * * RESULT: #[id number] - [facility] SCREENING BILATERAL DIGITAL SCREENING MAMMOGRAM WITH CAD: 07/01/2023 HISTORY: Multiple Diagnoses / Screening Mammogram-Patient reports NO symptoms. /priors available for comparison. RESULT: TECHNIQUE: The study was acquired using full field digital technology and interpreted from soft copy. Current study was also evaluated with a Computer Aided Detection (CAD). Comparison is made to exams dated: 11/08/2019 mammogram, 03/09/2017 mammogram, 08/03/2014 mammogram, and 10/12/2015 mammogram - [facility]. There are scattered areas of fibroglandular density. There is a biopsy clip in the right breast. No significant masses, calcifications, or other findings are seen in either breast. There has been no significant interval change. IMPRESSION: NEGATIVE There is no mammographic evidence of malignancy. A 1 year screening mammogram is recommended. Martin masters/nina:07/02/2023 10:54:58 Faculty Criminal Justice(s): RT Lauryn(Slim)(M), [facility] letter sent: Normal over 40 Mammogram BI-RADS: 1 Negative Multiple national specialty organizations have released breast cancer screening guidelines for women at average risk for developing breast cancer - guidelines that are based on both evidence and opinion, yet differ on when to start and how often to screen for breast cancer. With representation from Breast Imaging, Internal Medicine, Women's Health, Family Medicine, and Medical/Surgical Oncology, the [facility] has carefully reviewed the data and reached the following consensus: 1) All women should engage in shared decision-making with their providers to decide when to start and how often to screen; 2) All women should have the opportunity to start screening mammography at age 40; 3) For women ages 45-55, we recommend annual screening mammograms; 4) For women ages 55 and over, we support both the transition from an annual to a biennial interval if this aligns more with patient's values and preferences, or continuation with annual screening; 5) All women should discuss with their providers when to stop screening mammograms. Assembler Filters: Nina Transcribe Date/Time: Jul 01 2023 9:14A Dictated by: MARTIN ORTEZ MD This examination was interpreted and the report reviewed and electronically signed by: MARTIN ORTEZ MD on Jul 02 2023 10:54AM EST [id number] Normal [facility] CNOVon 06-11-2023 CNOV Office Visit (OBGYWM ) SHASTA GRACE ([id number]) 1965 F Date Time Provider Department 06/11/23 7:00 AM SUE MCBRIDE During your visit today, we recorded the following information about you: Blood pressure Weight Height 146/84 113.9 kg 1.638 m Sue Mcbride APRN.CNP 06/11/2023 1:06 PM Signed Shuttle Threader offered: Patient declines. [place] is a 58 year old who presents for an annual gynecologic exam without complaints. Has stopped all medications due to cost - is working to pay off 's medical bills. Postmenopausal: supracervical hysterectomy for adenomyosis 2002, ovary sparing HRT use: No, briefly used estradiol 10 mg vaginally twice weekly several years ago Last Pap: 03/12/2022 normal Lai HPV:03/12/2022 negative Lai History of abnormal pap: No Last mammogram: 2019 normal Abnormal mammogram -0 2009 right breast bx normal Sexually active: Yes, infrequent History of STDS: None Patient concerns for STD exposure: No. 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 History LMP: Hysterectomy Age at Menarche: Age at First : Age at Menopause: Wedding Decorator History Comments: Sexual Activity: Yes; Male; hysterectomy Contraception: Surgical PAST MEDICAL HISTORY Diagnosis Date Breast microcalcification, mammographic 09/05/2010 RIGHT Diverticulitis of colon (without mention of hemorrhage)(562.11) 09/28/2005 Essential hypertension Hypothyroidism PAST SURGICAL HISTORY Procedure Laterality Date BX BREAST PERC VACUUM/ROTN 09/05/2010 RIGHT DELIVERY ONLY CONSULT TO SPINE SURGERY 1999,2006 discectomy in L5 SUPRACERV ABD HYSTERECTOMY 02/21/2003 Hysterectomy, cervix remains , adenomyosis and leiomyoma FAMILY HISTORY Problem Relation Age of Onset Hypertension Mother Stroke Mother Heart Mother a fib Cervical Cancer Mother Breast Cancer Maternal Aunt SOCIAL HISTORY Social History Tobacco Use Smoking status: Never Smokeless tobacco: Never Substance Use Topics Alcohol use: No Drug use: No REVIEW OF SYSTEMS Abdomen: No abdominal pain, nausea, vomiting, diarrhea, or constipation. No bloating, early satiety, indigestion, or increased flatulence. Bladder: No dysuria, gross hematuria, urinary frequency, urinary urgency, or incontinence Breast: No breast lumps, nipple d/c, overlying skin changes, redness or skin retraction Allergies and current medication updated:Yes EXAM: BP 146/84 Ht 5' 4.5 (1.64m) Wt 251 lb (113.9kg) BMI 42.43 kg/(m2). GENERAL: pleasant, female in no apparent distress HEENT: Normocephalic, atraumatic, mucus membranes moist, and no lesions NECK: Supple, full range of motion, no adenopathy, and thyroid normal DERMATOLOGY: Normal, without lesions, non-icteric, and non-hirsute BREAST: soft, non-tender, symmetric, no dominant mass, normal nipple-areolar complex, no lymphadenopathy, and no nipple discharge CHEST: Normal inspiratory effort ABDOMEN: soft, non-tender, and no masses PELVIC: external genitalia normal, normal Bartholin's glands, urethra, [place]'s glands, no vulvar lesions, no cervical lesions, physiologic discharge present, normal appearing perineal body and perianal region. Postmenopausal atrophic vaginitis. BIMANUAL: no adnexal masses, non-tender, and uterus surgically absent RECTOVAGINAL: deferred. NEURO: alert and oriented x3,exam grossly non-focal EXTREMITIES: normal ASSESSMENT/PLAN: 1) Health maintenance: Pap/HPV up to date. Mammogram ordered Nutrition, exercise and routine health maintenance exams reviewed. Calcium/Vitamin D supplementation information provided. Colon cancer screenin diverticulitis - will discuss with PCP Obesity - discussed wt management 2. Vulvar itching - ICD9: 698.1, ICD10: L29.2 Occasional - CLOTRIMAZOLE-BETAMETHA SONE 1 %-0.05 % TOPICAL CREAM 3. Postmenopausal atrophic vaginitis - ICD9: 627.3, ICD10: N95.2 - ESTRADIOL 0.01% (0.1 MG/GRAM) VAGINAL CREAM 4) Follow up one year or sooner as needed Sue Mcbride APRN.Sue Katz APRN.GILLIAN 06/11/2023 7:32 AM Signed Calcium and Vitamin D Supplementation (from the National Institutes of Health Office of Dietary Supplements 2010) Calcium 1200 mg daily - 600 mg twice a day if taking supplement and Vit D 800-1000 IU daily Calcium is required by the body for blood vessel, muscle, hormone and nerve functioning. Most of the body's calcium is stored in the bones and teeth where it supports structure and function. Bone is continuously broken down and reformed. When bone breakdown exceeds formation, especially in postmenopau (more content not included)... Normal [facility] LABORATORYOrdered By: Yessica Daniel on 03-12-2022 Vit. D 25-Hydroxy 14.5 ng/mL Invalid Interpretation Code AO ADM SS LABORATORYOrdered By: Koby Hughes on 02-18-2022 Cholesterol [Mass/Vol] 162 mg/dL Invalid Interpretation Code 0 - 200 mg/dL AO ADM SS Cholesterol in HDL [Mass/Vol] 52 mg/dL Invalid Interpretation Code 40 - 60 mg/dL AO ADM SS Cholesterol in LDL [Mass/Vol] 93 mg/dL Invalid Interpretation Code 0 - 130 mg/dL AO ADM SS Triglyceride [Mass/Vol] 84 mg/dL Invalid Interpretation Code 0 - 150 mg/dL AO ADM SS LABORATORYOrdered By: Kaur Lehman on 02-18-2022 Albumin BCP dye [Mass/Vol] 3.9 G/dL Invalid Interpretation Code 3.5 - 5.0 G/dL AO ADM SS Albumin/Globulin [Mass ratio] 1.1 {ratio} Invalid Interpretation Code 1.1 - 2.5 ratio AO ADM SS ALP [Catalytic activity/Vol] 79 U/L Invalid Interpretation Code 40 - 135 U/L AO ADM SS ALT With P-5'-P [Catalytic activity/Vol] 45 U/L Invalid Interpretation Code 14 - 59 U/L AO ADM SS AST With P-5'-P [Catalytic activity/Vol] 28 U/L Invalid Interpretation Code 10 - 40 U/L AO ADM SS Bilirubin [Mass/Vol] 0.8 mg/dL Invalid Interpretation Code 0.2 - 1.0 mg/dL AO ADM SS Calcium [Mass/Vol] 8.9 mg/dL Invalid Interpretation Code 8.4 - 10.2 mg/dL AO ADM SS Chloride [Moles/Vol] 101 mmol/L Invalid Interpretation Code 98 - 107 mmol/L AO ADM SS Cholesterol [Mass/Vol] 166 mg/dL Invalid Interpretation Code 0 - 200 mg/dL AO ADM SS Cholesterol in HDL [Mass/Vol] 53 mg/dL Invalid Interpretation Code 40 - 60 mg/dL AO ADM SS Cholesterol in LDL [Mass/Vol] 95 mg/dL Invalid Interpretation Code 0 - 130 mg/dL AO ADM SS CO2 [Moles/Vol] 27 mmol/L Invalid Interpretation Code 22 - 29 mmol/L AO ADM SS Creatinine [Mass/Vol] 0.84 mg/dL Invalid Interpretation Code 0.55 - 1.02 mg/dL AO ADM SS Electrolyte Balance 9.0 mEq/L Invalid Interpretation Code 4.0 - 15.0 mEq/L AO ADM SS Free T3 [Mass/Vol] 2.95 pg/mL Invalid Interpretation Code 2.30 - 4.00 pg/mL AO ADM SS Free T4 [Mass/Vol] 1.20 ng/dL Invalid Interpretation Code 0.76 - 1.46 ng/dL AO ADM SS Globulin 3.4 G/dL Invalid Interpretation Code AO ADM SS Glucose [Mass/Vol] 80 mg/dL Invalid Interpretation Code 70 - 105 mg/dL AO ADM SS Potassium [Moles/Vol] 4.6 mmol/L Invalid Interpretation Code 3.5 - 5.1 mmol/L AO ADM SS Protein [Mass/Vol] 7.3 G/dL Invalid Interpretation Code 6.4 - 8.2 G/dL AO ADM SS Sodium [Moles/Vol] 137 mmol/L Invalid Interpretation Code 136 - 145 mmol/L AO ADM SS Triglyceride [Mass/Vol] 89 mg/dL Invalid Interpretation Code 0 - 150 mg/dL AO ADM SS TSH Qn 3.09 m[IU]/L Invalid Interpretation Code 0.36 - 3.74 mcIU/mL AO ADM SS Urea nitrogen [Mass/Vol] 14 mg/dL Invalid Interpretation Code 7 - 18 mg/dL AO ADM SS Urea nitrogen/Creatinine [Mass ratio] 17 ratio Invalid Interpretation Code 7 - 27 ratio AO ADM SS Vit. D 25-Hydroxy 15.5 ng/mL Invalid Interpretation Code AO ADM SS LABORATORYOrdered By: SYSTEM SYSTEM on 02-18-2022 GFR 84 ml/min/1.73sqm Invalid Interpretation Code AO Chemistry S GFR Non- 70 ml/min/1.73sqm Invalid Interpretation Code AO Chemistry S Vital Signs Date Time Vital Sign Value Performing Clinician Facility 03-21-2024 11:32-0400 Diastolic Blood Pressure Non-Invasive 70 mm[Hg] DR AROLDO STEVENS MD [facility] 03-21-2024 11:32-0400 Heart rate 86 /min DR AROLDO STEVENS MD [facility] 03-21-2024 11:32-0400 Respiratory rate 14 /min DR AROLDO STEVENS MD [facility] 03-21-2024 11:32-0400 Systolic Blood Pressure Non-Invasive 135 mm[Hg] DR AROLDO STEVENS MD [facility] 03-21-2024 11:26-0400 Diastolic Blood Pressure Non-Invasive 66 mm[Hg] DR AROLDO STEVENS MD [facility] 03-21-2024 11:26-0400 Heart rate 75 /min DR AROLDO STEVENS MD [facility] 03-21-2024 11:26-0400 Respiratory rate 19 /min DR AROLDO STEVENS MD [facility] 03-21-2024 11:26-0400 Systolic Blood Pressure Non-Invasive 147 mm[Hg] DR AROLDO STEVENS MD [facility] 03-21-2024 11:22-0400 Diastolic Blood Pressure Non-Invasive 78 mm[Hg] DR AROLDO STEVENS MD [facility] 03-21-2024 11:22-0400 Heart rate 74 /min DR AROLDO STEVENS MD [facility] 03-21-2024 11:22-0400 Respiratory rate 13 /min DR AROLDO STEVENS MD [facility] 03-21-2024 11:22-0400 Systolic Blood Pressure Non-Invasive 139 mm[Hg] DR AROLDO STEVENS MD [facility] 03-21-2024 11:00-0400 Respiratory Rate - Anes 24 br/min DR AROLDO STEVENS MD [facility] 03-21-2024 10:55-0400 Respiratory Rate - Anes 29 br/min DR AROLDO STEVENS MD [facility] 03-21-2024 10:50-0400 Respiratory Rate - Anes 16 br/min DR AROLDO STEVENS MD [facility] 03-21-2024 10:11-04[address] Cuff Size DR AROLDO STEVENS MD [facility] 03-21-2024 10:11-[address] AROLDO STEVENS MD [facility] 03-21-2024 10:11-[address] AROLDO STEVENS MD [facility] 03-21-2024 10:11-0400 Body height 163.[address] AROLDO STEVENS MD [facility] 03-21-2024 10:11-0400 Body temperature 97.34 [degF] DR AROLDO STEVENS MD [facility] 03-21-2024 10:11-0400 Body weight 111.[address] AROLDO STEVENS MD [facility] 03-21-2024 10:11-0400 Body weight 41.52 kg/m2 DR AROLDO STEVENS MD [facility] 03-21-2024 10:11-0400 Heart rate 86 /min DR AROLDO STEVENS MD [facility] 03-16-2024 14:45-0400 Body temperature 96.98 [degF] RUBÉN GABRIEL MD [facility] 03-16-2024 14:45-0400 Diastolic Blood Pressure Non-Invasive 74 mm[Hg] RUBÉN GABRIEL MD [facility] 03-16-2024 14:45-0400 Heart rate 84 /min RUBÉN GABRIEL MD [facility] 03-16-2024 14:45-0400 Respiratory rate 14 /min RUBÉN GABRIEL MD [facility] 03-16-2024 14:45-0400 Systolic Blood Pressure Non-Invasive 136 mm[Hg] RUBÉN GABRIEL MD [facility] 03-16-2024 14:35-0400 Body temperature 97.52 [degF] RUBÉN GABRIEL MD [facility] 03-16-2024 14:35-0400 Diastolic Blood Pressure Non-Invasive 77 mm[Hg] RUBÉN GABRIEL MD [facility] 03-16-2024 14:35-0400 Heart rate 89 /min RUBÉN GABRIEL MD [facility] 03-16-2024 14:35-0400 Mean blood pressure 94 mm[Hg] RUBÉN GABRIEL MD [facility] 03-16-2024 14:35-0400 Respiratory rate 20 /min RUBÉN GABRIEL MD [facility] 03-16-2024 14:35-0400 Systolic Blood Pressure Non-Invasive 134 mm[Hg] RUBÉN GABRIEL MD [facility] 03-16-2024 14:20-0400 Diastolic Blood Pressure Non-Invasive 61 mm[Hg] RUBÉN GABRIEL MD [facility] 03-16-2024 14:20-0400 Heart rate 92 /min RUBÉN GABRIEL MD [facility] 03-16-2024 14:20-0400 Mean blood pressure 76 mm[Hg] RUBÉN GABRIEL MD [facility] 03-16-2024 14:20-0400 Respiratory rate 20 /min RUBÉN GABRIEL MD [facility] 03-16-2024 14:20-0400 Systolic Blood Pressure Non-Invasive 122 mm[Hg] RUBÉN GABRIEL MD [facility] 03-16-2024 14:16-0400 Heart rate 86 /min RUBÉN GABRIEL MD [facility] 03-16-2024 14:06-0400 Mean blood pressure 92 mm[Hg] RUBÉN GABRIEL MD [facility] 03-16-2024 13:35-0400 Body temperature 96.98 [degF] RUBÉN GABRIEL MD [facility] 03-16-2024 13:25-0400 Respiratory Rate - Anes 15 br/min RUBÉN GABRIEL MD [facility] 03-16-2024 13:20-0400 Respiratory Rate - Anes 13 br/min RUBÉN GABRIEL MD [facility] 03-16-2024 13:15-0400 Body temperature 97.79 [degF] RUBÉN GABRIEL MD [facility] 03-16-2024 13:15-0400 Respiratory Rate - Anes 13 br/min RUBÉN GABRIEL MD [facility] 03-16-2024 13:10-0400 Body temperature 97.79 [degF] RUBÉN GABRIEL MD [facility] 03-16-2024 13:05-0400 Body temperature 97.84 [degF] RUBÉN GABRIEL MD [facility] 03-16-2024 10:00-0400 Body height 163.8 cm RUBÉN GABRIEL MD [facility] 03-16-2024 10:00-0400 Body weight 106.6 kg RUBÉN GABRIEL MD [facility] 03-16-2024 10:00-0400 Heart rate 78 /min RUBÉN GABRIEL MD [facility] 03-08-2024 09:15-0400 Blood Pressure Cuff Size RUBÉN GABRIEL MD [facility] 03-08-2024 09:15-0400 Blood Pressure Location RUBÉN GABRIEL MD [facility] 03-08-2024 09:15-0400 Blood Pressure Method RUBÉN GABRIEL MD [facility] 03-08-2024 09:15-0400 Diastolic Blood Pressure Non-Invasive 83 mm[Hg] RUBÉN GABRIEL MD [facility] 03-08-2024 09:15-0400 Systolic Blood Pressure Non-Invasive 136 mm[Hg] RUBÉN GABRIEL MD [facility] 03-08-2024 08:42-0400 Blood Pressure Cuff Size RUBÉN GABRIEL MD [facility] 03-08-2024 08:42-0400 Blood Pressure Location RUBÉN GABRIEL MD [facility] 03-08-2024 08:42-0400 Blood Pressure Method RUBÉN GABRIEL MD [facility] 03-08-2024 08:42-0400 Body height 164 cm RUBÉN GABRIEL MD [facility] 03-08-2024 08:42-0400 Body temperature 97.88 [degF] RUBÉN GABRIEL MD [facility] 03-08-2024 08:42-0400 Body weight 108.7 kg RUBÉN GABRIEL MD [facility] 03-08-2024 08:42-0400 Body weight 40.41 kg/m2 RUBÉN GABRIEL MD [facility] 03-08-2024 08:42-0400 Diastolic Blood Pressure Non-Invasive 69 mm[Hg] RUBÉN GABRIEL MD [facility] 03-08-2024 08:42-0400 Heart rate 72 /min RUBÉN GABRIEL MD [facility] 03-08-2024 08:42-0400 Systolic Blood Pressure Non-Invasive 177 mm[Hg] RUBÉN GABRIEL MD [facility] 01-24-2024 01:34-0400 Body temperature 97.52 [degF] ELIANE WALDRON MD [facility] 01-24-2024 01:34-0400 Diastolic Blood Pressure Non-Invasive 68 mm[Hg] ELIANE WALDRON MD [facility] 01-24-2024 01:34-0400 Heart rate 64 /min ELIANE WALDRON MD [facility] 01-24-2024 01:34-0400 Respiratory rate 18 /min ELIANE WALDRON MD [facility] 01-24-2024 01:34-0400 Systolic Blood Pressure Non-Invasive 145 mm[Hg] ELIANE WALDRON MD [facility] 12-15-2023 15:15-0400 Body height 165.1 cm ELIANE WALDRON MD [facility] 12-15-2023 15:15-0400 Body temperature 97.88 [degF] ELIANE WALDRON MD [facility] 12-15-2023 15:15-0400 Body weight 115.9 kg ELIANE WALDRON MD [facility] 12-15-2023 15:15-0400 Diastolic Blood Pressure Non-Invasive 85 mm[Hg] ELIANE WALDRON MD [facility] 12-15-2023 15:15-0400 Heart rate 86 /min ELIANE WALDRON MD [facility] 12-15-2023 15:15-0400 Respiratory rate 18 /min ELIANE WALDRON MD [facility] 12-15-2023 15:15-0400 Systolic Blood Pressure Non-Invasive 155 mm[Hg] ELIANE WALDRON MD [facility] 06-11-2023 07:04-0400 Body height 163.8 cm Sue Mcbride APRN.AUTOMOTIVE LOT ATTENDANT Work Phone: [facility] 06-11-2023 07:04-0400 Body weight 113.85 kg Sue Mcbride APRN.AUTOMOTIVE LOT ATTENDANT Work Phone: [facility] 06-11-2023 07:04-0400 Diastolic blood pressure 84 mm[Hg] Sue Mcbride APRN.AUTOMOTIVE LOT ATTENDANT Work Phone: [facility] 06-11-2023 07:04-0400 Systolic blood pressure 146 mm[Hg] Sue Mcbride APRN.AUTOMOTIVE LOT ATTENDANT Work Phone: [facility] 01-26-2022 11:45-0400 Body temperature 97.52 [degF] ELIANE WALDRON MD [facility] 01-26-2022 11:45-0400 Diastolic blood pressure 81 mm[Hg] ELIANE WALDRON MD [facility] 01-26-2022 11:45-0400 Heart rate 75 /min ELIANE WALDRON MD [facility] 01-26-2022 11:45-0400 Respiratory rate 20 /min ELIANE WALDRON MD [facility] 01-26-2022 11:45-0400 Systolic blood pressure 186 mm[Hg] ELIANE WALDRON MD [facility] Encounters Encounter Date Encounter Type Care Provider Facility Start: 03-21-2024 End: 03-21-[address] AROLDO STEVENS MD Facility:B Start: 03-21-2024 End: 03-21-[address] AROLDO STEVENS MD [facility] Start: 03-16-2024 End: 03-16-2024 ambulatory AMELIA NICHOLS DO Facility:A Start: 03-16-2024 End: 03-16-2024 SAME DAY STAY RUBÉN GABRIEL MD [facility] Start: 03-08-2024 End: 03-08-2024 Admission to establishment RUBÉN GABRIEL MD [facility] Start: 03-08-2024 End: 03-08-2024 ambulatory RUBÉN GABRIEL MD Facility:A Start: 02-24-2024 End: 02-28-[address] CIRILO NICHOLE DO Facility:B Start: 02-24-2024 End: 02-28-[address] CIRILO NICHOLE DO [facility] Start: 02-24-2024 End: 02-24-[address] CIRILO NICHOLE DO Facility:B Start: 02-24-2024 End: 02-24-[address] CIRILO NICHOLE DO [facility] Start: 02-23-2024 ambulatory DENISSE NASH DO Facility :B Start: 02-19-2024 End: 02-19-[address] CIRILO NICHOLE DO Facility:B Start: 02-19-2024 End: 02-19-[address] CIRILO NICHOLE DO [facility] Start: 02-17-2024 End: 02-17-[address] CIRILO NICHOLE DO Facility:B Start: 02-17-2024 End: 02-17-[address] CIRILO NICHOLE DO [facility] Start: 02-13-2024 End: 02-17-2024 ambulatory MISA GROSSMAN Facility:B Start: 02-13-2024 End: 02-17-[address] MISA GROSSMAN DO [facility] Start: 02-11-2024 End: 02-11-[address] CIRILO NICHOLE DO Facility:B Start: 02-11-2024 End: 02-11-[address] CIRILO NICHOLE DO [facility] Start: 02-10-2024 End: 02-10-2024 ambulatory JIEMY MAST CORK TIPPER-AUTOMOTIVE LOT ATTENDANT Facility:B Start: 02-10-2024 End: 02-10-2024 Patient encounter procedure JEIMY MAST CORK TIPPER-AUTOMOTIVE LOT ATTENDANT [facility] Start: 02-04-2024 End: 02-04-2024 ambulatory JEIMY MAST CORK TIPPER-AUTOMOTIVE LOT ATTENDANT Facility:B Start: 02-04-2024 End: 02-04-2024 Patient encounter procedure JEIMY MAST CORK TIPPER-AUTOMOTIVE LOT ATTENDANT [facility] Start: 01-26-2024 End: 01-26-2024 ambulatory JEIMY MAST CORK TIPPER-AUTOMOTIVE LOT ATTENDANT Facility:B Start: 01-24-2024 End: 01-24-2024 Emergency department patient visit ELIANE WALDRON MD [facility] Start: 12-30-2023 End: 12-30-2023 ambulatory JERRELL AKIMARCELL OMALLEY-GILLIAN Facility:B Start: 12-15-2023 End: 12-15-2023 Emergency department patient visit ELIANE WALDRON MD [facility] Start: 12-07-2023 End: 12-07-2023 ambulatory JERRELL PRABHAKAR APRN-GILLIAN Facility:B Start: 07-01-2023 End: 07-01-2023 ambulatory SUE MCBRIDE Facility:[facility] Start: 07-01-2023 Encounter for gynecological examination (general) (routine) with abnormal findings SUE MCBRIDE [facility] Start: 07-01-2023 End: 07-01-2023 Patient encounter status Screen [facility] Start: 07-01-2023 End: 07-01-2023 Subsequent hospital visit by physician Screen Mammo [facility] Comment on above: Encounter for gyneco logical examination with abnormal finding [Z01.411] Start: 06-11-2023 End: 06-11-2023 ambulatory SUE MCBRIDE Facility:[facility] Start: 06-11-2023 End: 06-11-2023 Patient encounter procedure Sue Mcbride APRN.CNP Work Phone: OB/Gynecology Comment on above: Encounter for gyneco logical examination with abnormal finding (Primary Dx); Vulvar itching; Postmenopausal atrophic vaginitis; Encounter for screening mammogram for malignant neoplasm of breast; Class 3 severe obesity with body mass index (BMI) of 40.0 to 44.9 in adult, unspecified obesity type, unspecified whether serious comorbidity present (HCC) Start: 06-11-2023 End: 06-11-2023 Patient encounter status Sue Mcbride APRN.CNP Work Phone: [facility] Work Phone: Start: 03-12-2022 End: 03-12-2022 Patient encounter procedure BRITTNEY NELSON MD [facility] Start: 03-12-2022 End: 03-16-2022 Outreach Lab BRITTNEY NELSON MD [facility] Start: 02-18-2022 End: 02-18-2022 Patient encounter procedure JERROD CRABTREE MD [facility] Start: 01-26-2022 End: 01-26-2022 Emergency department patient visit ELIANE WALDRON MD [facility] Procedures Date Procedure Procedure Detail Performing Clinician Start: 07-01-2023 Screening mammograph y bi 2-view breast inc cad Sue Mcbride APRN.AUTOMOTIVE LOT ATTENDANT Work Phone: Start: 05-10-2013 Colonoscopy Sue gutierres APRN.AUTOMOTIVE LOT ATTENDANT Work Phone: Start: 11-26-2012 Lipid 1996 panel - S jason or Plasma Sue Mcbride APRN.AUTOMOTIVE LOT ATTENDANT Work Phone: Start: 09-28-2012 Colonoscopy ELIANE SMITH MD Comment on above: normal, Dr Stevens Start: 09-28-2010 Specimen from breast obtained by biopsy (specimen) ELIANE WALDRON MD Comment on above: left Back structure, excl uding neck (body structure) ELIANE WALDRON MD Back structure, excl uding neck (body structure) RUBÉN GABRIEL MD Comment on above: Discectomy L 5 right then left 2006 and 2011 section ELIANE OZUNA MD Hysterectomy ELIANE MOJICA MD Plan of Treatment Date Care Activity Detail Author Start: 02-19-2032 Urine microalbumin profile DTaP,Tdap,Td Vaccine (2 - Td or Tdap) [facility] Start: 07-01-2024 Mammography Mammogram Screening [facility] Start: 05-29-2023 Covid-19 Vaccine () Covid-19 Vaccine () [facility] Start: 05-29-2023 Influenza vaccination Influenza Vacc ine (#1) [facility] Start: 2023 RSV Vaccine (1 - 1-d ose 60+ series) RSV Vaccine (1 - 1-dose 60+ series) [facility] Start: 09-28-2022 Depression Assessment Depression Ass essment [facility] Start: 05-09-2021 Covid-19 Vaccine (3 - Pfizer series) Covid-19 Vaccine (3 - Pfizer series) [facility] Start: 11-08-2020 Mammography Mammogram Screening [facility] Start: 05-10-2018 Colonoscopy Colonoscopy [facility] Start: 05-10-2018 Colorectal Cancer Screening Colorectal Cancer Screening [facility] Start: 11-26-2017 Lipid 1996 panel - S jason or Plasma Lipid Screening [facility] Start: 11-27-2015 Diabetes Screening Diabetes Screenin g [facility] Start: 2013 Shingrix Vaccine (1 of 2) Shingrix Vaccine (1 of 2) [facility] Start: 2008 Cologuard (FIT-DNA) Cologuard (FIT-D NA) [facility] Start: [address] COLONOGRAPHY [facility] Start: 2008 Fecal Occult Blood Fecal Occult Bloo d [facility] Start: 2008 SIGMOIDOSCOPY SIGMOIDOSCOPY [facility] Start: 1982 Urine microalbumin profile DTaP,Tdap,Td Vaccine (1 - Tdap) [facility] Start: 1981 Hepatitis C Screening Hepatitis C Sc reening [facility] Start: 1981 HIV Screening HIV Screening [facility] End: 07-10-2024 MARCO ANTONIO SCREENING MARCO ANTONIO SCREENING Radiology Routine Encounter for gynecological examination with abnormal finding Encounter for screening mammogram for malignant neoplasm of breast 1 Occurrences starting 06/11/2023 until 07/10/2024 [facility] Work Phone: Comment on above: 1 Occurrences starti ng 06/11/2023 until 07/10/2024 [facility] Immunizations Immunization Date Immunization Notes Care Provider Fa [facility] 02-18-2022 tetanus toxoid, redu aaliyah diphtheria toxoid, and acellular pertussis vaccine, adsorbed; Translations: [Boostrix (Tdap)] DR CIRILO NICHOLE DO [facility] 07-24-2021 influenza, injectabl e, quadrivalent, contains preservative; Translations: [Fluarix PF Quadrivalent ] ELIANE WALDRON MD [facility] 07-24-2021 influenza virus vaccine, unspecified formulation Sue Mcbride APRN.[facility] Work Phone: [facility] 03-14-2021 SARS-CoV-2 mRNA (tozinameran) vaccine ELIANE WALDRON MD [facility] Comment on above: Result Comment: 2023: [id number] 02-21-2021 SARS-CoV-2 mRNA (tozinameran) vaccine ELIANE WALDRON MD [facility] Comment on above: Result Comment: 2023: [id number] Payers Date Payer Category Payer Private Health Insurance [id number] 2022 Unknown MMO MMO [employer] PPO [id number] 2022-Present [phone] [address] [place] [address] PPO [id number] 2022 Unknown [id number] 1965 Unknown [id number] 27 1965 Unknown [id number] [id number] 1963 Unknown [id number] 2.16.840.1.680357.3.579.2.6 1963 Unknown [id number] 2.16.840.1.657646.3.579.2.6 1963 Unknown [id number] 2.16.840.1.502725.3.579.2.6 1963 Unknown [id number] 2.16.840.1.306394.3.579.2.6 1963 Unknown [id number] 2.16.840.1.505380.3.579.2.6 1963 Unknown [id number] 2.16.840.1.972156.3.579.2.6 1963 Unknown [id number] 2.16.840.1.606284.3.579.2.6 1963 Unknown [id number] 2.16.840.1.429474.3.579.2.6 1963 Unknown [id number] 2.16.840.1.650558.3.579.2.6 1963 Unknown [id number] 2.16.840.1.806794.3.579.2.6 1963 Unknown [id number] 2.16.840.1.736943.3.579.2.6 1963 Unknown [id number] 2.16.840.1.900676.3.579.2.6 1963 Unknown [id number] 2.16.840.1.171983.3.579.2.6 1963 Unknown [id number] 2.16.840.1.628739.3.579.2.6 1963 Unknown [id number] 2.16.840.1.317363.3.579.2.6 1963 Unknown [id number] [id number] 27 Social History Date Type Detail Facility Start: 04-06-2013 End: 04-25-2019 Tobacco smoking status Never smoked tobacco (finding) [facility] Start: 1965 Sex Assigned At Female A [facility] Start: 04-06-2013 Tobacco use and exposure Smokeless tobacco non-user [facility] Work Phone: Start: 06-11-2023 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 (finding) [facility] Start: 06-11-2023 History of Social function [facility] Start: 06-11-2023 Tobacco use panel [facility] National Score (1-10 0), lower number is lower risk 74 [facility] Start: 1965 Sex Assigned At Not on file C [facility] Start: 07-03-2023 Gender identity Identifies as female gender (finding) [facility] Start: 07-03-2023 Sexual orientation Heterosexual (fin jake) [facility] Functional Status Date Assessment Result Facility 03-21-2024 Functional Status Activity Status ADL Veronica ke [facility] 03-21-2024 Functional Status Maintained [facility] 03-16-2024 Functional Status Maintained [facility] 03-08-2024 Functional Status Sensory Deficits None A [facility] 01-24-2024 Functional Status Independent [facility] 01-24-2024 Functional Status Standard Safet y ID band on, Allergy Band on, Call device within reach, Bed in low position, Wheels locked, Upper/Half-Length side-rails up, Phone within reach, Safety level maintained [facility] 01-26-2022 Functional Status [facility] Mental Status Date Assessment Result Facility 03-16-2024 Mental Status Oriented x 4 [facility] 01-24-2024 Mental Status Orientation Oriented x 4 [facility] 01-24-2024 Mental Status [facility] 01-26-2022 Mental Status [facility] Clinical Notes 01-26-2022 to 05-12-2024 Note Date & Type Note Facility 05-12-2024 Note . MICRO - Microbiology PROCEDURE: Acid Fast Bacilli Culture w Stain if Ind [*1] SOURCE: Bronchial Washing BODY SITE: COLLECTED DATE/TIME: 03/16/2024 12:05 EDT RECEIVED DATE/TIME: 03/16/2024 14:32 EDT START DATE/TIME: 03/16/2024 14:32 EDT FREE TEXT SOURCE: FINAL REPORTS Final Report [] Verified Date/Time/Personnel: 05/12/2024 09:50 EDT No growth of Acid Fast Bacilli PRELIMINARY REPORTS Preliminary Report [] Verified Date/Time/Personnel: 05/05/2024 07:43 EDT No growth of Acid Fast Bacilli to date. Final report to follow at 8 weeks. STAINS AFS [] Verified Date/Time/Personnel: 03/17/2024 12:16 EDT Acid Fast Smear from Concentrated Specimen: Negative Performing Locations *1: This test was performed at: [facility], [address] [place] [address], [id number] , [facility] ([place]) 04-19-2024 Note . MICRO - Microbiology PROCEDURE: Fungal Culture with Stain if Ind [*1] SOURCE: Bronchial Washing BODY SITE: COLLECTED DATE/TIME: 03/16/2024 12:05 EDT RECEIVED DATE/TIME: 03/16/2024 14:31 EDT START DATE/TIME: 03/16/2024 14:31 EDT FREE TEXT SOURCE: FINAL REPORTS Final Report [] Verified Date/Time/Personnel: 04/19/2024 15:39 EDT 1 colony Yeast No mold isolated in 4 weeks. PRELIMINARY REPORTS Preliminary Report [] Verified Date/Time/Personnel: 03/18/2024 07:30 EDT 1 colony Yeast Culture will be held for 4 weeks. STAINS FUNSM [] Verified Date/Time/Personnel: 03/17/2024 12:14 EDT No fungal elements observed by calcofluor white stain. Performing Locations *1: This test was performed at: [facility], [address] [place] [address], [id number] , [facility] ([place]) 03-21-2024 Evaluation + Plan note Extrac lina from: Title:Clinical Document Author:AROLDO STEVENS Date:03/21/24 [place] ADMISSION HISTORY AN D PHYSICIAL CHIEF COMPLAINT: HISTORY OF PRESENT ILLNESS: REVIEW OF SYSTEMS: ACTIVE PROBLEMS: (71) Abdominal pain (07123000) Abnormal tympanic membrane of right ear (8146118463) Arthritis (8868279) At risk for falls (0371491208) At risk for sleep apnea (8644411817) Atherosclerosis of abdominal aorta (237326605) Benign paroxysmal vertigo, unspecified ear (445705722) Bloating (884557453) Bradycardia (91660516) Cerebellar infarct (890158460) Chronic cough (954902954) Claustrophobia (68553497) Constipation (46602762) Diverticulosis of colon (6570544080) Dizziness (4344539936) Early satiety (4071953199) Elevated brain natriuretic peptide (BNP) level (474300890) Elevated liver enzymes (1658174270) Elevated serum globulin level (0934267752) Encounter for examination following treatment at hospital (219777672) Epigastric abdominal pain (338063471) Erythema migrans (Lyme disease) (151497705) Facet arthropathy of spine (6684611675) Fatty liver (441612401) Fibromyalgia (339729611) Gastroesophageal reflux (922117957) Gastroesophageal reflux disease (671726158) Generalized anxiety disorder (14603702) Glasses (6445847173) 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) Hilar lymphadenopathy (098948045) History of abnormal cervical Pap smear (4526488315) Hyperkalemia (60717411) Hyperlipemia (79174205) Hypertension (1769291247) Hyponatremia (068543684) Hypothyroidism (02420179) Iron deficiency (15709718) Irregular heartbeat (454464561) Left upper quadrant abdominal pain (875789435) Leukocytosis (223317954) Lightheadedness (7169647658) Low back pain without sciatica (953331083) Low serum iron (1890990914) Lymphadenopathy, thoracic (033931) Mediastinal adenopathy (24787204) Mild tricuspid valve regurgitation (421249554) Mitral annular calcification (004398766) Morbid obesity with BMI of 40.0-44.9, adult (4353773771) Multiple thyroid nodules (549648001) Neck pain (577692403) Numbness (00072011) Nystagmus (1126748) On anticoagulant therapy (592064868) Orthostatic hypotension (24448496) Osteoarthritis (1888560557) Palpitations (861411624) Peripheral edema (134906114) Protrusion of lumbar intervertebral disc (906674580) Raspy voice (45426620) Recurrent low back pain (431719763) Renal cyst, right (1851738899) Rib pain on left side (157235320) Shortness of breath on exertion (517957505) SOB (shortness of breath) (341921091) Spinal stenosis (238444168) SVT (supraventricular tachycardia) (04606170) Systolic ejection murmur (956453472) Trochanteric bursitis, right hip (2424351147) Umbilical hernia without obstruction and without gangrene (1093267828) Vitamin D deficiency (27337758) MEDICATIONS: Active Inpt Meds: None Active PRN Meds: None One Time Meds: None Active IV Meds: Lactated Ringers Infusion 1,000 mL (LR 1,000 mL) Start: 03/21/24 10:05:00 EDT, Rate: 50 mL/hr, 03/21/24 10:05:00 EDT ALLERGIES: (2) Peanut butter penicillin FAMILY HISTORY: SOCIAL HISTORY: PHYSICAL EXAM: VITALS: IlvlmmTopkUDDqqcsRCXgS6DMS5JwunTt(kg) 03/21 10:1136.3--442834QX20/58009.4 24 Hr Tmax: 36.3 at 03/21 10:11 36 Hr Tmax: 36.3 at 03/21 10:11 Vital Signs are the last 5 in the past 48 hours. Weights display the last 5 within 7 days. Initial Wt: 03/21 111.4 kg 245 lb Current Wt: 03/21 111.4 kg 245 lb GENERAL: HEENT: CARDIOVASCULAR: RESPIRATORY: ABDOMEN: EXREMETIES: NEUROLOGICAL: PSYCHIATRIC: LABS: No 36hr Lab Data DIAGNOSTICS: IMPRESSION: PLAN: History and Physical Update I have examined the patient; reviewed the H&P and there are no changes to the H&P unless noted below. Future Appointments Appointment Date:05/10/2024 02:00:00 PM Scheduled Provider:CIRILO NICHOLE DO Location:[facility] Appointment Type:PC OV Appointment Date:06/29/2024 01:00:00 PM Scheduled Provider:JERRELL PRABHAKAR Location:[facility] Appointment Type: OV Future Scheduled Tests Laboratory* Thyroid Stimulating Hormone 07/01/24 * Vitamin D Level 07/01/24 * Complete Metabolic Panel 07/01/24 Radiology* MRI Spine Lumbar w/ + w/o Contrast 02/03/24 [facility] 06-24-2024 Hospital Discharge instructions Patient Education 03/21/2024 11:13:20 Colon Polyps Colon Polyps Polyps are tissue growths inside the body. Polyps can grow in many places, including the large intestine (colon). A polyp may be a round bump or a mushroom-shaped growth. You could have one polyp or several. Most colon polyps are noncancerous (benign). However, some colon polyps can become cancerous over time. Finding and removing the polyps early can help prevent this. What are the causes? The exact cause of colon polyps is not known. What increases the risk? You are more likely to develop this condition if you: Have a family history of colon cancer or colon polyps. Are older than 50 or older than 45 if you are . Have inflammatory bowel disease, such as ulcerative colitis or Crohn's disease. Have certain hereditary conditions, such as: ?Familial adenomatous polyposis. ?Penn syndrome. ?Turcot syndrome. ?Peutz Jeghers syndrome. Are overweight. Smoke cigarettes. Do not get enough exercise. Drink too much alcohol. Eat a diet that is high in fat and red meat and low in fiber. Had childhood cancer that was treated with abdominal radiation. What are the signs or symptoms? Most polyps do not cause symptoms. If you have symptoms, they may include: Blood coming from your rectum when having a bowel movement. Blood in your stool. The stool may look dark red or black. Abdominal pain. A change in bowel habits, such as constipation or diarrhea. How is this diagnosed? This condition is diagnosed with a colonoscopy. This is a procedure in which a lighted, flexible scope is inserted into the anus and then passed into the colon to examine the area. Polyps are sometimes found when a colonoscopy is done as part of routine cancer screening tests. How is this treated? Treatment for this condition involves removing any polyps that are found. Most polyps can be removed during a colonoscopy. Those polyps will then be tested for cancer. Additional treatment may be needed depending on the results of testing. Follow these instructions at home: Lifestyle Maintain a healthy weight, or lose weight if recommended by your health care provider. Exercise every day or as told by your health care provider. Do not use any products that contain nicotine or tobacco, such as cigarettes and e-cigarettes. If you need help quitting, ask your health care provider. If you drink alcohol, limit how much you have: ?0 1 drink a day for women. ? 0 2 drinks a day for men. Be aware of how much alcohol is in your drink. In the [place] one drink equals one 12 oz bottle of beer (355 mL), one 5 oz glass of wine (148 mL), or one 1 oz shot of hard liquor (44 mL). Eating and drinking Eat foods that are high in fiber, such as fruits, vegetables, and whole grains. Eat foods that are high in calcium and vitamin D, such as milk, cheese, yogurt, eggs, liver, fish, and broccoli. Limit foods that are high in fat, such as fried foods and desserts. Limit the amount of red meat and processed meat you eat, such as hot dogs, sausage, smith, and lunch meats. General instructions Keep all follow-up visits as told by your health care provider. This is important. ?This includes having regularly scheduled colonoscopies. ?Talk to your health care provider about when you need a colonoscopy. Contact a health care provider if: You have new or worsening bleeding during a bowel movement. You have new or increased blood in your stool. You have a change in bowel habits. You lose weight for no known reason. Summary Polyps are tissue growths inside the body. Polyps can grow in many places, including the colon. Most colon polyps are noncancerous (benign), but some can become cancerous over time. This condition is diagnosed with a colonoscopy. Treatment for this condition involves removing any polyps that are found. Most polyps can be removed during a colonoscopy. This information is not intended to replace advice given to you by your health care provider. Make sure you discuss any questions you have with your health care provider. Document Released: 06/10/2005 Document Revised: 12/30/2018 Document Reviewed: 12/30/2018 [employer] Patient Education 2020 [employer]. 03/21/2024 11:13:15 Colonoscopy, Adult, Care After Colonoscopy, Adult, Care After This sheet gives you information about how to care for yourself after your procedure. Your health care provider may also give you more specific instructions. If you have problems or questions, contact your health care provider. What can I expect after the procedure? After the procedure, it is common to have: A small amount of blood in your stool for 24 hours after the procedure. Some gas. Mild abdominal cramping or bloating. Follow these instructions at home: General instructions For the first 24 hours after the procedure: ?Do not drive or use machinery. ?Do not sign important documents. ?Do not drink alcohol. ?Do your regular daily activities at a slower pace than normal. ?Eat soft, vtnp-ho-xjlxop foods. Take krtt-bam-gxuluvs or prescription medicines only as told by your health care provider. Relieving cramping and bloating Try walking around when you have cramps or feel bloated. Apply heat to your abdomen as told by your health care provider. Use a heat source that your healthcare provider recommends, such as a moist heat pack or a heating pad. ?Place a towel between your skin and the heat source. ?Leave the heat on for 20 30 minutes. ?Remove the heat if your skin turns bright red. This is especially important if you are unable to feel pain, heat, or cold. You may have a greater risk of getting burned. Eating and drinking Drink enough fluid to keep your urine pale yellow. Resume your normal diet as instructed by your health care provider. Avoid heavy or fried foods thatare hard to digest. Avoid drinking alcohol for as long as instructed by your health care provider. Contact a health care provider if: You have blood in your stool 2 3 days after the procedure. Get help right away if: You have more than a small spotting of blood in your stool. You pass large blood clots in your stool. Your abdomen is swollen. You have nausea or vomiting. You have a fever. You have increasing abdominal pain that is not relieved with medicine. Summary After the procedure, it is common to have a small amount of blood in your stool. You may also have mild abdominal cramping and bloating. For the first 24 hours after the procedure, do not drive or use machinery, sign important documents, or drink alcohol. Contact your health care provider if you have a lot of blood in your stool, nausea or vomiting, a fever, or increased abdominal pain. This information is not intended to replace advice given to you by your health care provider. Make sure you discuss any questions you have with your health care provider. Document Released: 04/28/2005 Document Revised: 07/07/2018 Document Reviewed: 11/25/2016 [employer] Patient Education 2020 [employer]. 03/21/2024 11:13:10 Monitored Anesthesia Care, Care After Monitored Anesthesia Care, Care After These instructions provide you with information about caring for yourself after your procedure. Your health care provider may also give you more specific instructions. Your treatment has been plannedaccording to current medical practices, but problems sometimes occur. Call your health care provider if you have any problems or questions after your procedure. What can I expect after the procedure? After your procedure, you may: Feel sleepy for several hours. Feel clumsy and have poor balance for several hours. Feel forgetful about what happened after the procedure. Have poor judgment for several hours. Feel nauseous or vomit. Have a sore throat if you had a breathing tube during the procedure. Follow these instructions at home: For at least 24 hours after the procedure: Have a responsible adult stay with you. It is important to have someone help care for you until youare awake and alert. Rest as needed. Do not: ?Participate in activities in which you could fall or become injured. ?Drive. ?Use heavy machinery. ?Drink alcohol. ?Take sleeping pills or medicines that cause drowsiness. ?Make important decisions or sign legal documents. ?Take care of children on your own. Eating and drinking Follow the diet that is recommended by your health care provider. If you vomit, drink water, juice, or soup when you can drink without vomiting. Make sure you have little or no nausea before eating solid foods. General instructions Take yydq-lwo-kxplkve and prescription medicines only as told by your health care provider. If you have sleep apnea, surgery and certain medicines can increase your risk for breathing problems. Follow instructions from your health care provider about wearing your sleep device: ?Anytime you are sleeping, including during daytime naps. ?While taking prescription pain medicines, sleeping medicines, or medicines that make you drowsy. If you smoke, do not smoke without supervision. Keep all follow-up visits as told by your health care provider. This is important. Contact a health care provider if: You keep feeling nauseous or you keep vomiting. You feel light-headed. You develop a rash. You have a fever. Get help right away if: You have trouble breathing. Summary For several hours after your procedure, you may feel sleepy and have poor judgment. Have a responsible adult stay with you for at least 24 hours or until you are awake and alert. This information is not intended to replace advice given to you by your health care provider. Make sure you discuss any questions you have with your health care provider. Document Released: 01/04/2017 Document Revised: 12/13/2018 Document Reviewed: 01/04/2017 [employer] Patient Education 2020 [employer]. Follow Up Care 03/11/2024 12:43:15 With:AROLDO STEVENS MD Address: [address] [phone] When: Unknown Comments:Follow-up as needed [facility] 06-24-2024 Summary of episode note Discharge Instructions Thank you for allowing [facility] to assist you with your healthcare needs. The following is importantdischarge information regarding your hospital visit. Your Care Team CIRILO NICHOLE DO Your Diagnosis Colonoscopy What to do next Scheduled Follow-Up Appointments Appointment Type When With Where Contact Information StatusPC OV 05/10/2024 02:00 PM EDT CIRILO NICHOLE DO [address] [phone] Confirmed OV 06/29/2024 01:00 PM EDT JERRELL PRABHAKAR APRN-[employer]OM[employer]IVE [employer] ATTENDANT [facility] Confirmed Follow Up Appointments Follow Up with AROLDO STEVENS MD Where:[address] [phone] Additional Information: Follow-up as needed The Following Activity and Diet Have Been Ordered for You Discharge Activity - Ordered -- NO activity restrictions, 03/21/24 11:05:00 EDT Discharge Diet - Ordered -- Follow the post-operative/post-procedure diet instructions provided by your physician's office.,03/21/24 11:05:00 EDT The Following Equipment Has Been Ordered for You Discharge Home Equipment Discharge Wound Care - Ordered -- Follow the post-operative/post-procedure wound care instructions provided by your physician's office., 03/21/24 11:05:00 EDT Allergies Peanut butter(Severe) Angioedema, Anaphylactic reaction penicillin(Severe) Hives Medications Please ask your primary doctor or pharmacist before taking any other medication not listed, including over the counter drugs, herbal medications, vitamins and or supplements as they may interact withyour home medications. What How Much When Instructions Last Dose Unchanged acetaminophen (Tylenol 8 Hour 650 mg oral tablet, extended release) 2 tab(s) by mouth Three (3) times a day as needed for as needed for pain Unchanged aspirin (aspirin 81 mg oral delayed release tablet) 1 tab(s) by mouth Daily at bedtime do not crush or chew. Pt to call dr gabriel for hold date instructions, is to get bleeding time lab work done ordered per [facility] first and will [facility] Unchanged DULoxetine (DULoxetine 30 mg oral delayed release capsule) 1 cap by mouth Once a day Duration: 14 Days do not crush or chew. Take 30 mg PO daily for two weeks then increase to 60 mg PO daily thereafter Unchanged DULoxetine (DULoxetine 60 mg oral delayed release capsule) 1 cap by mouth Once a day Duration: 90 Days do not crush or chew. Take 30 mg PO daily for two weeks then increase to 60 mg PO daily thereafter Unchanged ergocalciferol (Vitamin D2 1.25 mg (50,000 intl units) oral capsule) 1 cap by mouth Every Thursday Duration: 90 Days Unchanged ferrous sulfate (ferrous sulfate 325 mg (65 mg elemental iron) oral tablet) 1 tab(s) by mouth Thursday / Thursday / Thursday Duration: 90 Days may take with food to minimize abdominal discomfort Unchanged gabapentin (gabapentin 300 mg oral capsule) 1 cap by mouth Three (3) times a day Unchanged levothyroxine (Synthroid 75 mcg (0.075 mg) oral tablet) 1 tab(s) by mouth Once a day (in the morning) Duration: 90 Days SANDRA - synthroid Unchanged lisinopril (lisinopril 10 mg oral tablet) 1 tab(s) by mouth Daily at bedtime Duration: 90 Days Unchanged methocarbamol (methocarbamol 750 mg oral tablet) 2 tab(s) by mouth Three (3) times a day as needed for as needed for pain Duration: [address], operate heavy machinery, or drink alcohol while on this medication. Unchanged multivitamin (Multivitamin) 1 tab(s) by mouth Once a day (in the morning) Unchanged nystatin topical (nystatin 100,000 units/ g topical cream) 1 application Topical Two (2) times a day as needed for Rash Duration: 30 Days Apply to the affected area twice daily until healing complete. Unchanged omeprazole (omeprazole 40 mg oral delayed release capsule) 1 cap by mouth Once a day before a meal Duration: 90 Days before a meal Unchanged polyethylene glycol 3350 (MiraLax oral powder for reconstitution) 17 gram(s) by mouth Thursday / Thursday / Thursday With Iron Unchanged senna (senna (sennosides) 8.6 mg oral tablet) 2 tab(s) by mouth Two (2) times a day as needed for as needed for constipation Unchanged zinc gluconate (zinc (as gluconate) 50 mg oral tablet) 1 tab(s) by mouth Once a day (in the morning) Please take this list to your next doctor s visit. Bring all medications you take, including over the counter medications, herbals and other supplements with you to your doctor s visit. Patients and families are reminded to discard old lists and to update any records with all medication providers or retail pharmacies. Education Materials Colon Polyps Polyps are tissue growths inside the body. Polyps can grow in many places, including the large intestine (colon). A polyp may be a round bump or a mushroom-shaped growth. You could have one polyp or several. Most colon polyps are noncancerous (benign). However, some colon polyps can become cancerous over time. Finding and removing the polyps early can help prevent this. What are the causes? The exact cause of colon polyps is not known. What increases the risk? You are more likely to develop this condition if you: Have a family history of colon cancer or colon polyps. Are older than 50 or older than 45 if you are . Have inflammatory bowel disease, such as ulcerative colitis or Crohn's disease. Have certain hereditary conditions, such as: ? Familial adenomatous polyposis. ? Penn syndrome. ? Turcot syndrome. ? Peutz Jeghers syndrome. Are overweight. Smoke cigarettes. Do not get enough exercise. Drink too much alcohol. Eat a diet that is high in fat and red meat and low in fiber. Had childhood cancer that was treated with abdominal radiation. What are the signs or symptoms? Most polyps do not cause symptoms. If you have symptoms, they may include: Blood coming from your rectum when having a bowel movement. Blood in your stool. The stool may look dark red or black. Abdominal pain. A change in bowel habits, such as constipation or diarrhea. How is this diagnosed? This condition is diagnosed with a colonoscopy. This is a procedure in which a lighted, flexible scope is inserted into the anus and then passed into the colon to examine the area. Polyps are sometimes found when a colonoscopy is done as part of routine cancer screening tests. How is this treated? Treatment for this condition involves removing any polyps that are found. Most polyps can be removed during a colonoscopy. Those polyps will then be tested for cancer. Additional treatment may be needed depending on the results of testing. Follow these instructions at home: Lifestyle Maintain a healthy weight, or lose weight if recommended by your health care provider. Exercise every day or as told by your health care provider. Do not use any products that contain nicotine or tobacco, such as cigarettes and e-cigarettes. If you need help quitting, ask your health care provider. If you drink alcohol, limit how much you have: ? 0 1 drink a day for women. ? 0 2 drinks a day for men. Be aware of how much alcohol is in your drink. In the [place] one drink equals one 12 oz bottle of beer (355 mL), one 5 oz glass of wine (148 mL), or one 1 oz shot of hard liquor (44 mL). Eating and drinking Eat foods that are high in fiber, such as fruits, vegetables, and whole grains. Eat foods that are high in calcium and vitamin D, such as milk, cheese, yogurt, eggs, liver, fish, and broccoli. Limit foods that are high in fat, such as fried foods and desserts. Limit the amount of red meat and processed meat you eat, such as hot dogs, sausage, simth, and lunch meats. General instructions Keep all follow-up visits as told by your health care provider. This is important. ? This includes having regularly scheduled colonoscopies. ? Talk to your health care provider about when you need a colonoscopy. Contact a health care provider if: You have new or worsening bleeding during a bowel movement. You have new or increased blood in your stool. You have a change in bowel habits. You lose weight for no known reason. Summary Polyps are tissue growths inside the body. Polyps can grow in many places, including the colon. Most colon polyps are noncancerous (benign), but some can become cancerous over time. This condition is diagnosed with a colonoscopy. Treatment for this condition involves removing any polyps that are found. Most polyps can be removed during a colonoscopy. This information is not intended to replace advice given to you by your health care provider. Make sure you discuss any questions you have with your health care provider. Document Released: 06/10/2005 Document Revised: 12/30/2018 Document Reviewed: 12/30/2018 [employer] Patient Education 2020 [employer] Colonoscopy, Adult, Care After This sheet gives you information about how to care for yourself after your procedure. Your health care provider may also give you more specific instructions. If you have problems or questions, contact your health care provider. What can I expect after the procedure? After the procedure, it is common to have: A small amount of blood in your stool for 24 hours after the procedure. Some gas. Mild abdominal cramping or bloating. Follow these instructions at home: General instructions For the first 24 hours after the procedure: ? Do not drive or use machinery. ? Do not sign important documents. ? Do not drink alcohol. ? Do your regular daily activities at a slower pace than normal. ? Eat soft, escn-tw-drjmho foods. Take yawi-ynn-kqderxr or prescription medicines only as told by your health care provider. Relieving cramping and bloating Try walking around when you have cramps or feel bloated. Apply heat to your abdomen as told by your health care provider. Use a heat source that your healthcare provider recommends, such as a moist heat pack or a heating pad. ? Place a towel between your skin and the heat source. ? Leave the heat on for 20 30 minutes. ? Remove the heat if your skin turns bright red. This is especially important if you are unable to feel pain, heat, or cold. You may have a greater risk of getting burned. Eating and drinking Drink enough fluid to keep your urine pale yellow. Resume your normal diet as instructed by your health care provider. Avoid heavy or fried foods thatare hard to digest. Avoid drinking alcohol for as long as instructed by your health care provider. Contact a health care provider if: You have blood in your stool 2 3 days after the procedure. Get help right away if: You have more than a small spotting of blood in your stool. You pass large blood clots in your stool. Your abdomen is swollen. You have nausea or vomiting. You have a fever. You have increasing abdominal pain that is not relieved with medicine. Summary After the procedure, it is common to have a small amount of blood in your stool. You may also have mild abdominal cramping and bloating. For the first 24 hours after the procedure, do not drive or use machinery, sign important documents, or drink alcohol. Contact your health care provider if you have a lot of blood in your stool, nausea or vomiting, a fever, or increased abdominal pain. This information is not intended to replace advice given to you by your health care provider. Make sure you discuss any questions you have with your health care provider. Document Released: 04/28/2005 Document Revised: 07/07/2018 Document Reviewed: 11/25/2016 [employer] Patient Education 2020 [employer]. Monitored Anesthesia Care, Care After These instructions provide you with information about caring for yourself after your procedure. Your health care provider may also give you more specific instructions. Your treatment has been plannedaccording to current medical practices, but problems sometimes occur. Call your health care provider if you have any problems or questions after your procedure. What can I expect after the procedure? After your procedure, you may: Feel sleepy for several hours. Feel clumsy and have poor balance for several hours. Feel forgetful about what happened after the procedure. Have poor judgment for several hours. Feel nauseous or vomit. Have a sore throat if you had a breathing tube during the procedure. Follow these instructions at home: For at least 24 hours after the procedure: Have a responsible adult stay with you. It is important to have someone help care for you until youare awake and alert. Rest as needed. Do not: ? Participate in activities in which you could fall or become injured. ? Drive. ? Use heavy machinery. ? Drink alcohol. ? Take sleeping pills or medicines that cause drowsiness. ? Make important decisions or sign legal documents. ? Take care of children on your own. Eating and drinking Follow the diet that is recommended by your health care provider. If you vomit, drink water, juice, or soup when you can drink without vomiting. Make sure you have little or no nausea before eating solid foods. General instructions Take xjwk-wag-tcjncbk and prescription medicines only as told by your health care provider. If you have sleep apnea, surgery and certain medicines can increase your risk for breathing problems. Follow instructions from your health care provider about wearing your sleep device: ? Anytime you are sleeping, including during daytime naps. ? While taking prescription pain medicines, sleeping medicines, or medicines that make you drowsy. If you smoke, do not smoke without supervision. Keep all follow-up visits as told by your health care provider. This is important. Contact a health care provider if: You keep feeling nauseous or you keep vomiting. You feel light-headed. You develop a rash. You have a fever. Get help right away if: You have trouble breathing. Summary For several hours after your procedure, you may feel sleepy and have poor judgment. Have a responsible adult stay with you for at least 24 hours or until you are awake and alert. This information is not intended to replace advice given to you by your health care provider. Make sure you discuss any questions you have with your health care provider. Document Released: 01/04/2017 Document Revised: 12/13/2018 Document Reviewed: 01/04/2017 Elsevier Patient Education 2020 [employer] Additional Information VACCINATE! IT SAVES LIVES! Members of the community who have not yet received the COVID-19 vaccine and would like to receive it can visit one of [facility] vaccine clinics. There are many vaccine clinic locations within the [facility]. For locations and available times, please visit [email or web address].[email or web address]/. It is important to note that some COVID mobile vaccine clinics are held outdoors and may be canceled in rainy or stormy conditions. To learn more about pediatric vaccinations (ages 5-11), we invite you to visit the [facility] webpage. [email or web address] learn more about the COVID-19 vaccine, we invite you to visit the CDC website for a list of frequently asked questions.https://www.cdc.gov/coronavirus/2019-ncov/vaccines/faq.html [employer] Patient Portal Access Instructions: Stay connected with your healthcare team and access your personal medical information anytime with the [employer] Patient Portal. Please follow the directions below to create your [employer] account: 1.Access the email account you provided upon registration to the hospital/physician office.2.Look for an invitation email from [facility].3.Open the email and access the invitation link: AcceptInvitation to [employer].4.Fill in the required collins to create your account. To access your account, visit [employer]. Click the blue button labeled Access Patient Portal and then log in with the username and password that you created in the steps above. You will be able to view your test results, lab results, a summary of your visits, upcoming appointments and more. There is also a convenient messaging option where you can send secure messages to your p [employer]. In addition, you will have the ability to download any documents or summaries to your computer and/or send the information securely to a physician. Remember that your healthcare information is confidential, so carefully consider who you will allowto register on the [employer] Patient Portal for access to your information. You can also access the [employer] Patient Portal on the [employer] azar. Simply click on Patient Portal and then log into your account. If you would like to receive a full copy of your medical records, please contact the [facility] Medical Records Department by calling [phone], Thursday through Thursday between 8 a.m. and 4:30 p.m. HOW TO SAFELY DISPOSE OF PRESCRIPTION MEDICATIONS Please use one of the following methods to safely dispose of your unused medications. 1.Use a drug disposal kit: the drug disposal pouch allows you to safely discard your old and unuseddrugs. Ask your nurse to give you one when you are discharged.2.Visit a local take-back location: Many local pharmacies and police departments have programs that collect old and unwanted prescriptiondrugs. Call your local pharmacy or go to http://[employer].MarketArt/9A2Ru2e to find one close to you.3.Make use of household items: Use cat litter or old coffee grounds to dispose medications if other options arenot available. Mix your drugs with these household products, seal them in an airtight container andthrow it into the garbage. Call [facility]: [phone] to be sure your drugs can be disposed of in this way. Some medicines may require a different approach.4.Never flush your medications down the toilet. IF YOU HAVE BEEN PRESCRIBED AN OPIOID FOR PAIN If you have been prescribed an opioid (such as hydrocodone, oxycodone or morphine), it is critical to understand the possible side effects and risks of opioid pain medications. Even when taken as directed, opioids can have several side effects including: Tolerance, meaning you might need to take more of a medication for the same pain relief. Nausea, vomiting and/or constipation. Sleepiness, dizziness, dry mouth, confusion, depression or itching. Physical dependence, meaning you have withdrawal symptoms when a medication is stopped, can develop within a few days. KNOW YOUR RESPONSIBILITIES It is important to know exactly how much and how often to take the opioid pain medications you are prescribed. Never take opioids in higher amounts or more often than prescribed. Do not combine opioids with alcohol or other drugs that cause drowsiness, such as benzodiazepines, also known as benzos, including diazepam and alprazolam, muscle relaxants or sleep aids. Never sell or share prescription opioids. This is illegal. Store opioids in a secure place and out of reach of others (including children, family, friends and visitors). The last page of this document has been signed and retained as a CHART COPY. Signatures Patient Education Materials Colon Polyps Colonoscopy, Adult, Care After Monitored Anesthesia Care, Care After Medication Leaflets My discharge plan and instructions have been reviewed and explained to me and I,AMANDEEP, SHASTA L understand my current condition and have read and understand these discharge instructions. I have received a written copy of the plan/instructions. If I have questions, I am aware that I should contact my doctor. Patient/Drawing Tracer Signature: Date/Time: Relationship to Patient: Witness Name/Signature: Date/Time: [facility]06-24-2024 Note Date of Service March 21, 2024 Procedure Name Colonoscopy to the cecum with snare polypectomy Consent Taken before procedure Indication Abdominal pain Location [facility] Pre-Procedure Exam Abdominal pain Procedural Sedation Anesthesia provided a MAC Technique Patient was brought to the endoscopy suite placed left shoulder down anesthesia provided a MAC. Scope was passed up the left colon the vascular pedicles was normal across the transverse colon becauseremained normal. Colon cecum was identified the appendiceal orifice was photographed. Above the cecum was a sessile polyp 3 to 4 mm using a cold snare the polyp was transected and sucked up with the colonoscope. The transverse colon mucosa may normal splenic flexure there were no obvious large polyps seen scattered diverticuli in the left colon reflexion performed the rectum showed some small internal hemorrhoids the colon was decompressed the patient tolerated the procedure Post-Procedure Exam Sessile polyp removed with cold snare Findings Sessile polyp Complications None apparent Total Time Approximately 25 minutes Assessment/Plan Orders: Lactated Ringers Infusion 1,000 mL(LR 1,000 mL), 1000 mL, Intravenous Bedrest, 03/21/24 11:05:00 EDT, Strict, continuous, Constant order, Lying on side until alert or asordered Bedrest, 03/21/24 11:05:00 EDT, Strict, continuous, Constant order, Lying on side until alert or asordered Call Parameters, 03/21/24 11:05:00 EDT, Notify for vomiting, severe pain, signs of bleeding, severeabdominal pain, distention or rigidity, Constant order Communication Order (scheduled), 03/21/24 10:05:00 EDT, Once, 03/21/24 10:05:00 EDT, Pathology Tissue Request Communication Order (scheduled), 03/21/24 10:05:00 EDT, Once, 03/21/24 10:05:00 EDT, Urine Test or waiver for women of child bearing age Communication Order (scheduled), 03/21/24 10:05:00 EDT, Once, 03/21/24 10:05:00 EDT, Fasting Blood Sugar priot to procedure of patient is diabetic Diet Order, 03/21/24 11:05:00 EDT, Start Meal: Next meal, Clear Liquid Diet, Post exam or after gagreflex returns if EGD, Constant Order, : No, per patient, : No Discharge, 03/21/24 10:05:00 EDT, Discharged to: Home, when able to ambulate and after being seen by physician Discharge Activity, NO activity restrictions, 03/21/24 11:05:00 EDT Discharge Diet, Follow the post-operative/post-procedure diet instructions provided by your physician's office., 03/21/24 11:05:00 EDT Discharge Wound Care, Follow the post-operative/post-procedure wound care instructions provided by your physician's office., 03/21/24 11:05:00 EDT Pathology Tissue Request, 03/21/24 10:59:00 EDT, Collected, Routine, Nurse Collect, AP Specimen, RIGHT COLON, SEE H&P, COLONOSCOPY, ABDOMINAL PAIN, ABDOMINAL PAIN, Preferred Lab: [facility], [id number] Post Procedure Assessment, 03/21/24 11:05:00 EDT, Stop Date 03/21/24 11:05:00 EDT, [facility] in [facility] until Taylor Score of 12 or Preprocedure Sign Consent, 03/21/24 10:05:00 EDT, Once, For Colonoscopy Vital Signs, 03/21/24 11:05:00 EDT, q15min, 1 hour(s), 03/21/24 12:00:00 EDT Vital Signs, 03/21/24 11:05:00 EDT, q30min, 1 hour(s), 03/21/24 12:00:00 EDT Vital Signs PRN, 03/21/24 11:05:00 EDT, PRN order Follow Up/Recommendation Follow-up the pathology of the polyp consider repeat colonoscopy in 5 to 7 years Digitally Signed by AROLDO STEVENS MD on 03/21/2024 11:10 AM [facility]06-24-2024 Anesthesiology Consult note Patient: SHASTA GRACE Age: 58 years Sex: Female : 1965 Associated Diagnoses: None Author: LORENZO TAYLOR APRN-CHIEF SCIENCE OFFICER Assessment Postanesthesia assessment Vitals: Vital signs from flowsheet : Vital Signs 03/21/2024 11:00 EDT Heart Rate Monitored 83 bpm bpm Respiratory Rate - Anes 24 br/min br/min Systolic Blood Pressure Non-Invasive 128 mmHg mmHg Diastolic Blood Pressure Non-Invasive 61 mmHg mmHg 03/21/2024 10:55 EDT Heart Rate Monitored 84 bpm bpm Respiratory Rate - Anes 29 br/min br/min Systolic Blood Pressure Non-Invasive 152 mmHg mmHg Diastolic Blood Pressure Non-Invasive 84 mmHg mmHg 03/21/2024 10:50 EDT Heart Rate Monitored 96 bpm bpm Respiratory Rate - Anes 16 br/min br/min Systolic Blood Pressure Non-Invasive 99 mmHg mmHg Diastolic Blood Pressure Non-Invasive 85 mmHg mmHg 03/21/2024 10:48 EDT Systolic Blood Pressure Non-Invasive 156 mmHg mmHg Diastolic Blood Pressure Non-Invasive 94 mmHg mmHg 03/21/2024 10:11 EDT Temperature Temporal Artery 36.3 DegC Apical Heart Rate 86 bpm Respiratory Rate 17 br/min Systolic Blood Pressure Non-Invasive 151 mmHg HI Diastolic Blood Pressure Non-Invasive 84 mmHg Blood Pressure Method Automatic Blood Pressure Location Left arm Blood Pressure Cuff Size Large , Measurements from flowsheet . Mental status: alert & oriented x 4. Respiratory function: respirations are non-labored. Respiratory support: none. CV function: Normal rate. Cardiovascular support: none. Pain. Nausea status: see nursing documentation of medications. Postoperative hydration status: within normal limits. Digitally Signed by LORENZO TAYLOR APRN-CHIEF SCIENCE OFFICER on 03/21/2024 11:10 AM [facility]06-24-2024 Anesthesiology Consult note Patient: SHASTA GRACE Age: 58 years Sex: Female : 1965 Associated Diagnoses: None Author: LORENZO TAYLOR APRN-CHIEF SCIENCE OFFICER Preoperative Information Time of last solid food intake: 03/21/2024 00:00:00 Time of last clear liquid intake: 03/21/2024 06:30:00 Anesthesia history Patient's history: negative. Family's history: negative. Health Status Allergies: Allergic Reactions (Selected) Severe Peanut butter- Angioedema and anaphylactic reaction. Penicillin- Hives., Allergies (2) ActiveSeverityReaction Peanut butterSevereAnaphylactic reaction, Angioedema penicillinSevereHives Current medications: (Selected) Inpatient Medications Ordered LR 1,000 mL: 50 mL/hr, Intravenous Prescriptions Prescribed DULoxetine 30 mg oral delayed release capsule: 30 mg, 1 cap(s), Oral, qDay, for 14 day(s), do not crush or chew. Take 30 mg PO daily for two weeks then increase to 60 mg PO daily thereafter, 14 cap(s), 0 Refill(s) DULoxetine 60 mg oral delayed release capsule: 60 mg, 1 cap(s), Oral, qDay, for 90 day(s), do not crush or chew. Take 30 mg PO daily for two weeks then increase to 60 mg PO daily thereafter, 90 cap(s), 0 Refill(s) Synthroid 75 mcg (0.075 mg) oral tablet: 75 mcg, 1 tab(s), Oral, qAM, for 90 day(s), SANDRA - synthroid, 90 tab(s), 1 Refill(s) Vitamin D2 1.25 mg (50,000 intl units) oral capsule: 50,000 International_Unit, 1 cap(s), Oral, Thursday, for 90 day(s), 13 cap(s), 1 Refill(s) aspirin 81 mg oral delayed release tablet: 81 mg, 1 tab(s), Oral, qHS, do not crush or chew. Pt to call dr gabriel for hold date instructions, is to get bleeding time lab work done ordered per [facility] first and will get at [facility] 03/08/24, 90 tab(s), 3 Refill(s) ferrous sulfate 325 mg (65 mg elemental iron) oral tablet: 325 mg, 1 tab(s), Oral, Mon/Wed/Fri, for90 day(s), may take with food to minimize abdominal discomfort, 39 tab(s), 0 Refill(s) lisinopril 10 mg oral tablet: 10 mg, 1 tab(s), Oral, qHS, for 90 day(s), 90 tab(s), 1 Refill(s) methocarbamol 750 mg oral tablet: 1,500 mg, 2 tab(s), Oral, TID, for 14 day(s), Do not drive, operate heavy machinery, or drink alcohol while on this medication., PRN: as needed for pain, 84 tab(s), 0 Refill(s) nystatin 100,000 units/g topical cream: 1 azar, Topical, BID, for 30 day(s), Apply to the affected area twice daily until healing complete., PRN: Rash, 30 gram(s), 1 Refill(s) omeprazole 40 mg oral delayed release capsule: 40 mg, 1 cap(s), Oral, qDayAC, for 90 day(s), beforea meal, 90 cap(s), 0 Refill(s) Documented Medications Documented MiraLax oral powder for reconstitution: 17 gram(s), Oral, Mon/Wed/Fri, With Iron, 510 gram(s), 0 Refill(s) Multivitamin: 1 tab(s), Oral, qAM, 0 Refill(s) Tylenol 8 Hour 650 mg oral tablet, extended release: 1,300 mg, 2 tab(s), Oral, TID, PRN: as needed for pain, 24 tab(s), 0 Refill(s) gabapentin 300 mg oral capsule: 300 mg, 1 cap(s), Oral, TID, 0 Refill(s) senna (sennosides) 8.6 mg oral tablet: 17.2 mg, 2 tab(s), Oral, BID, PRN: as needed for constipation, 20 tab(s), 0 Refill(s) zinc (as gluconate) 50 mg oral tablet: 50 mg, 1 tab(s), Oral, qAM, 30 tab(s), 0 Refill(s), Medications (1) Active Scheduled: (0) Continuous: (1) Lactated Ringers Infusion 1,000 mL 1,000 mL, Intravenous, 50 mL/hr PRN: (0) Problem list: Medical Atherosclerosis of abdominal aorta / SNOMED CT 780640317 / Confirmed Bloating / SNOMED CT 958437770 / Confirmed Abdominal pain / SNOMED CT 03092154 / Confirmed Facet arthropathy of spine / SNOMED CT 8415808859 / Confirmed Benign paroxysmal vertigo, unspecified ear / SNOMED CT 282482145 / Confirmed Morbid obesity with BMI of 40.0-44.9, adult / SNOMED CT 7081915846 / Confirmed Bradycardia / SNOMED CT 02384407 / Confirmed Constipation / SNOMED CT 91473595 / Confirmed Renal cyst, right / SNOMED CT 7208883459 / Confirmed Abnormal tympanic membrane of right ear / SNOMED CT 7846895948 / Confirmed Diverticulosis of colon / SNOMED CT 3833116343 / Confirmed Dizziness / SNOMED CT 8624639939 / Confirmed SOB (shortness of breath) / SNOMED CT 011104247 / Confirmed Shortness of breath on exertion / SNOMED CT 597397597 / Confirmed Early satiety / SNOMED CT 0821550043 / Confirmed Systolic ejection murmur / SNOMED CT 418648764 / Confirmed Elevated liver enzymes / SNOMED CT 9438299364 / Confirmed Epigastric abdominal pain / SNOMED CT 419339566 / Confirmed Erythema migrans (Lyme disease) / SNOMED CT 614058902 / Confirmed Fibromyalgia / SNOMED CT 268322881 / Confirmed Gastroesophageal reflux disease / SNOMED CT 851174669 / Confirmed Gastroesophageal reflux / SNOMED CT 584986244 / Confirmed Generalized anxiety disorder / SNOMED CT 35261077 / Confirmed Elevated serum globulin level / SNOMED CT 5212473570 / Confirmed Trochanteric bursitis, right hip / SNOMED CT 0082168012 / Confirmed 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 / Confirmed Hilar lymphadenopathy / SNOMED CT 804924224 / Confirmed History of abnormal cervical Pap smear / SNOMED CT 3160946911 / Confirmed Elevated brain natriuretic peptide (BNP) level / SNOMED CT 565833014 / Confirmed Hyperkalemia / SNOMED CT 17711972 / Confirmed Hyperlipemia / SNOMED CT 16140296 / Confirmed Hypertension / SNOMED CT 5120432798 / Confirmed Hyponatremia / SNOMED CT 397944783 / Confirmed Hypothyroidism / SNOMED CT 40431831 / Confirmed Iron deficiency / SNOMED CT 75068762 / Confirmed Irregular heartbeat / SNOMED CT 227699908 / Confirmed Left upper quadrant abdominal pain / SNOMED CT 558665110 / Confirmed Leukocytosis / SNOMED CT 534339009 / Confirmed Lightheadedness / SNOMED CT 6448770675 / Confirmed Recurrent low back pain / SNOMED CT 071848323 / Confirmed Low back pain without sciatica / SNOMED CT 883061333 / Confirmed Mediastinal adenopathy / SNOMED CT 53112682 / Confirmed Mitral annular calcification / SNOMED CT 666773482 / Confirmed Multiple thyroid nodules / SNOMED CT 074180804 / Confirmed Neck pain / SNOMED CT 491138675 / Confirmed Numbness / SNOMED CT 27451868 / Confirmed Nystagmus / SNOMED CT 0111612 / Confirmed Orthostatic hypotension / SNOMED CT 37878659 / Confirmed Osteoarthritis / SNOMED CT 0805517673 / Confirmed Palpitations / SNOMED CT 155920645 / Confirmed Encounter for examination following treatment at hospital / SNOMED CT 654776477 / Confirmed Peripheral edema / SNOMED CT 040095359 / Confirmed Protrusion of lumbar intervertebral disc / SNOMED CT 242321349 / Confirmed Rib pain on left side / SNOMED CT 278647485 / Confirmed Spinal stenosis / SNOMED CT 977994373 / Confirmed Fatty liver / SNOMED CT 571956057 / Confirmed SVT (supraventricular tachycardia) / SNOMED CT 61740307 / Confirmed Lymphadenopathy, thoracic / SNOMED CT 723595 / Confirmed Mild tricuspid valve regurgitation / SNOMED CT 661555627 / Confirmed Umbilical hernia without obstruction and without gangrene / SNOMED CT 0955341276 / Confirmed Vitamin D deficiency / SNOMED CT 43596439 / Confirmed, Active Problems (71) Abdominal pain Abnormal tympanic membrane of right ear Arthritis At risk for falls At risk for sleep apnea Atherosclerosis of abdominal aorta Benign paroxysmal vertigo, unspecified ear Bloating Bradycardia Cerebellar infarct Chronic cough Claustrophobia Constipation Diverticulosis of colon Dizziness Early satiety Elevated brain natriuretic peptide (BNP) level Elevated liver enzymes Elevated serum globulin level Encounter for examination following treatment at hospital Epigastric abdominal pain Erythema migrans (Lyme disease) Facet arthropathy of spine Fatty liver Fibromyalgia Gastroesophageal reflux Gastroesophageal reflux disease Generalized anxiety disorder Glasses Enio's disease Hilar lymphadenopathy History of abnormal cervical Pap smear Hyperkalemia Hyperlipemia Hypertension Hyponatremia Hypothyroidism Iron deficiency Irregular heartbeat Left upper quadrant abdominal pain Leukocytosis Lightheadedness Low back pain without sciatica Low serum iron Lymphadenopathy, thoracic Mediastinal adenopathy Mild tricuspid valve regurgitation Mitral annular calcification Morbid obesity with BMI of 40.0-44.9, adult Multiple thyroid nodules Neck pain Numbness Nystagmus On anticoagulant therapy Orthostatic hypotension Osteoarthritis Palpitations Peripheral edema Protrusion of lumbar intervertebral disc Raspy voice Recurrent low back pain Renal cyst, right Rib pain on left side Shortness of breath on exertion SOB (shortness of breath) Spinal stenosis SVT (supraventricular tachycardia) Systolic ejection murmur Trochanteric bursitis, right hip Umbilical hernia without obstruction and without gangrene Vitamin D deficiency Histories Past Medical History: Resolved Elevated fasting glucose (937010730): Resolved. Yeast vaginitis (725827860): Resolved. Comments: 03/08/2024 EDT 8:21 ROBBIE Taylor after use of antibiotic Family History: Cancer Mother () Thyroid Mother () Hypertension Mother () Atrial fibrillation Mother () Brother () Alcohol abuse Sister () Stroke Mother () Heart attack Brother () Accident Father () COPD Sister () Procedure history: Colonoscopy ([id number]) in 2012 at 50 Years. Comments: 04/25/2019 17:18 Hamida Augustine LPN normal, Dr Stevens Breast biopsy sample ([id number]) in 2010 at 46 Years. Comments: 04/25/2019 17:17 Hamida Augustine LPN left Back Surgery ([id number]). Comments: 03/08/2024 8:33 ROBBIE Taylor right then left 2006 and 201103/08/2024 8:33 ROBBIE Taylor Discectomy L 5 Hysterectomy ([id number]). delivery ([id number]). Social History: Social & Psychosocial Habits Alcohol 03/16/2024 Use: Current Type: Wine Frequency: 1-2 times per month Substance Abuse 03/16/2024 Use: Never Tobacco 03/16/2024 Tobacco Use: Never (less than 100 in l Home/Environment 03/16/2024 Living situation: Home/Independent Safe place to go: Yes Other risks in environment: no smoke exposure Domestic Concerns None Lives In 1st floor bathroom, 2nd floor bedroom, Multilevel home Current Home Treatments None Special Services and Community Resources None Spouse Name erica Marital Status of Patient if Patient Independent Adult: Nutrition/Health 03/16/2024 Type of diet: Regular Caffeine intake amount: occasionally-sweet tea or soda Appetite Fair Eating Difficulties None Physical Examination Vital Signs 03/21/2024 11:00 EDT Heart Rate Monitored 83 bpm bpm Respiratory Rate - Anes 24 br/min br/min Systolic Blood Pressure Non-Invasive 128 mmHg mmHg Diastolic Blood Pressure Non-Invasive 61 mmHg mmHg 03/21/2024 10:55 EDT Heart Rate Monitored 84 bpm bpm Respiratory Rate - Anes 29 br/min br/min Systolic Blood Pressure Non-Invasive 152 mmHg mmHg Diastolic Blood Pressure Non-Invasive 84 mmHg mmHg 03/21/2024 10:50 EDT Heart Rate Monitored 96 bpm bpm Respiratory Rate - Anes 16 br/min br/min Systolic Blood Pressure Non-Invasive 99 mmHg mmHg Diastolic Blood Pressure Non-Invasive 85 mmHg mmHg 03/21/2024 10:48 EDT Systolic Blood Pressure Non-Invasive 156 mmHg mmHg Diastolic Blood Pressure Non-Invasive 94 mmHg mmHg 03/21/2024 10:11 EDT Temperature Temporal Artery 36.3 DegC Apical Heart Rate 86 bpm Respiratory Rate 17 br/min Systolic Blood Pressure Non-Invasive 151 mmHg HI Diastolic Blood Pressure Non-Invasive 84 mmHg Blood Pressure Method Automatic Blood Pressure Location Left arm Blood Pressure Cuff Size Large Vital Signs (last 24 hrs) Last Charted Temp Dukncrqd63.3 DegC (MAR 21 10:11) Heart Rate Uhomtzran35 bpm (MAR 21 11:00) JLS804 mmHg (MAR 21 11:00) DBP61 mmHg (MAR 21 11:00) BMI41.52 (MAR 21 10:11) Measurements from flowsheet : Measurements 03/21/2024 10:11 EDT Height 163.8 cm Admission Weight 111.4 kg Weight Method Stated [place] Body Weight 55.82 kg BSA Admission 2.15 Body Mass Index 41.52 kg/m2 Pain assessment: Pain Assessment 03/21/2024 10:11 EDT Primary Pain Intensity 0 Pain Scale Type 0-10 Pain scale . General: Alert and oriented. Airway: Normal temporomandibular joint mobility, Normal mouth, Normal neck range of motion. Mallampati classification: III (soft palate, base of uvula visible). Dentition Evaluation: Denies loose/chipped teeth. Respiratory: Respirations are non-labored. Cardiovascular: Normal rate. Neurologic: Alert, Oriented. Review / Management Results review: No qualifying data available , Lab results 03/21/2024 11:04 EDT SN - CTm - Anesthesia Stop Time Anesthesia Stop Anesthesia Final Record OP Colonoscopy 03/21/2024 11:04 EDT SN - Proc - Actual Procedure COLONOSCOPY WITH POLYPECTOMY (Modified) 03/21/2024 11:04 EDT Lactated Ringers Injection 500 mL mL 03/21/2024 11:03 EDT [facility] Procedure Record [facility] Procedure Record (Modified) 03/21/2024 11:00 EDT SN - Cul - Culture Type Tissue in Formalin SN - Cul - Kind Specimen 03/21/2024 11:00 EDT Heart Rate Monitored 83 bpm bpm Respiratory Rate - Anes 24 br/min br/min Systolic Blood Pressure Non-Invasive 128 mmHg mmHg Diastolic Blood Pressure Non-Invasive 61 mmHg mmHg Oxygen Saturation 98.2 % % 03/21/2024 10:56 EDT SN - LA - Medication simethicone 40 mg/0.6 mL Liquid 30mL SN - LA - Route of Administration Irrigation SN - LA - By (Single) SN - LA - By (Single) 03/21/2024 10:56 EDT propofol 100 mg mg 03/21/2024 10:55 EDT Heart Rate Monitored 84 bpm bpm Respiratory Rate - Anes 29 br/min br/min Systolic Blood Pressure Non-Invasive 152 mmHg mmHg Diastolic Blood Pressure Non-Invasive 84 mmHg mmHg Oxygen Saturation 97.6 % % 03/21/2024 10:50 EDT Heart Rate Monitored 96 bpm bpm Respiratory Rate - Anes 16 br/min br/min Systolic Blood Pressure Non-Invasive 99 mmHg mmHg Diastolic Blood Pressure Non-Invasive 85 mmHg mmHg Oxygen Saturation 99 % % lidocaine 60 mg mg propofol 140 mg mg 03/21/2024 10:48 EDT SN - CTm - Anesthesia Start Time Anesthesia Start 03/21/2024 10:48 EDT SN - PP - Body Position Lateral Right Side-up Standard Intra-op 03/21/2024 10:48 EDT Systolic Blood Pressure Non-Invasive 156 mmHg mmHg Diastolic Blood Pressure Non-Invasive 94 mmHg mmHg 03/21/2024 10:47 EDT SN - Proc - Anesthesia Type MAC SN - Proc - EBL 0 mL 03/21/2024 10:47 EDT Lactated Ringers Injection Begin Bag 1,000 mL mL [place] History and Physical 03/21/2024 10:45 EDT SN - GCD - ASA Class 3 SN - GCD - Post-operative Diagnosis ABDOMINAL PAIN SN - GCD - Case Level OPD Level 3 03/21/2024 10:40 EDT SN - CAt - Case Attendee SN - CAt - Case Attendee SN - CAt - Case Attendee SN - CAt - Case Attendee SN - CAt - Case Attendee SN - CAt - Case Attendee SN - CAt - Case Attendee SN - CAt - Case Attendee SN - CAt - Role Performed Primary Surgeon SN - CAt - Role Performed CHIEF SCIENCE OFFICER SN - CAt - Role Performed Needle Punch Machine Operator Helper 1 SN - CAt - Role Performed Maintenance Services Dispatcher 03/21/2024 10:19 EDT Lactated Ringers Injection Begin Bag 1,000 mL mL 03/21/2024 10:11 EDT Designated Person #1 We May Share MANSOOR Grossman [phone] Designated Person #1 Relationship Spouse Height 163.8 cm Admission Weight 111.4 kg Weight Method Stated [place] Body Weight 55.82 kg BSA Admission 2.15 Body Mass Index 41.52 kg/m2 Temperature Temporal Artery 36.3 DegC Apical Heart Rate 86 bpm Respiratory Rate 17 br/min Systolic Blood Pressure Non-Invasive 151 mmHg HI Diastolic Blood Pressure Non-Invasive 84 mmHg Blood Pressure Method Automatic Blood Pressure Location Left arm Blood Pressure Cuff Size Large Primary Pain Intensity 0 Pain Scale Type 0-10 Pain scale Oxygen Therapy Room air Oxygen Saturation 96 % Status No, per patient Hand Right 03/21/2024 22 gauge Peripheral IV Activity: Insert new site Peripheral IV Dressing Condition: Clean, Dry, Intact Peripheral IV Dressing Activity: Applied, Transparent dressing Peripheral IV Line Status/Patency: Flushes easily, Continuous infusion Peripheral IV Site Condition: No complications Peripheral IV Equipment: Extension set Sensory Deficits None Infectious Disease Symptoms Patient states no symptoms Infectious Disease Recent Exposure No Alcohol and Drug Use No Employee of Institutional Living No Health Care Employee No History of Exposure to TB No History of Positive Chest X-Ray for TB No History of Positive TB Skin Test No Homeless No Known Immunosuppression No Recent Immigrant No Resident of Institutional Living No Bloody Sputum No Fatigue No Fever No Loss of Appetite No Night Sweats No Persistent Cough > 3 Weeks No Weight Loss No Arrival Mode Ambulatory Glasses Yes GI Prep Sutab GI Prep Completed Yes GI Prep Results Yellow, Clear Barriers to Learning None evident Teaching Method Explanation, Printed materials Preferred Spoken Language Kosovan Preferred Written Language Kosovan Information Given by Patient Patient's Current Physicians Patient's Current Physicians Discharge To, Anticipated Home independently Activity Status ADL Awake Standard Safety ID band on, Allergy Band on, Call device within reach, Bed in low position, Wheels locked, Upper/Half-Length side-rails up, Safety level maintained Prev Test Positive/Diagnosis w/COVID-19 No Current Quarantine/Isolated any Illness No Any Contact with Sick Animals/Birds No Traveled Anywhere in Last 30 Days No No Personal Devices, Patient Valuables Glasses Admission Note-Nursing Procedure/Therapy Intake 03/21/2024 10:07 EDT IV Present Present Allergies Yes Anesthesia Extension Set Applied Yes Photograph Inspector On Yes Colon Prep Results Excellent Consent Form Signed Yes Patient Dressed In Hospital gown History & Physical Update On Chart Yes History & Physical On Chart Yes Bowel Prep Completed Yes NPO Status Maintained Allergy Band on and Verified Yes Patient ID Band on and Verified Yes Implants Verified Yes Pacemaker/AICD Verified Yes Site Verified by Patient/Family Yes Anesthesia Consent Signed Yes Last Fluid Intake 03/21/2024 7:30 Last Food Intake 03/20/2024 8:00 . Assessment and Plan [place] [employer] (ASA) physical status classification: Class III. Anesthetic Preoperative Plan Anesthetic technique: MAC. Informed consent: signed by patient. Digitally Signed by LORENZO TAYLOR on 03/21/2024 11:10 AM [facility]06-24-2024 Note [place] ADMISSION HISTORY AND PHYSICIAL CHIEF COMPLAINT: HISTORY OF PRESENT ILLNESS: REVIEW OF SYSTEMS: ACTIVE PROBLEMS: (71) Abdominal pain (81564624) Abnormal tympanic membrane of right ear (2577375975) Arthritis (1261414) At risk for falls (4144901123) At risk for sleep apnea (1923031870) Atherosclerosis of abdominal aorta (784730543) Benign paroxysmal vertigo, unspecified ear (893103642) Bloating (634638818) Bradycardia (12684028) Cerebellar infarct (026330657) Chronic cough (729131823) Claustrophobia (36055890) Constipation (65056234) Diverticulosis of colon (0159319793) Dizziness (8535861577) Early satiety (0290576769) Elevated brain natriuretic peptide (BNP) level (094905953) Elevated liver enzymes (2503698537) Elevated serum globulin level (7959674936) Encounter for examination following treatment at hospital (673989970) Epigastric abdominal pain (162142147) Erythema migrans (Lyme disease) (493101530) Facet arthropathy of spine (3941770339) Fatty liver (591907292) Fibromyalgia (871599057) Gastroesophageal reflux (539148284) Gastroesophageal reflux disease (068488256) Generalized anxiety disorder (35106970) Glasses (7149642286) 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) Hilar lymphadenopathy (978740767) History of abnormal cervical Pap smear (7803401907) Hyperkalemia (91890084) Hyperlipemia (76751799) Hypertension (8660538267) Hyponatremia (644889994) Hypothyroidism (10716864) Iron deficiency (02523401) Irregular heartbeat (032282347) Left upper quadrant abdominal pain (380450790) Leukocytosis (276981909) Lightheadedness (1054508447) Low back pain without sciatica (198593397) Low serum iron (2820391923) Lymphadenopathy, thoracic (994625) Mediastinal adenopathy (05561944) Mild tricuspid valve regurgitation (433830283) Mitral annular calcification (084077494) Morbid obesity with BMI of 40.0-44.9, adult (9066722887) Multiple thyroid nodules (702565963) Neck pain (871965856) Numbness (55497248) Nystagmus (20151002) On anticoagulant therapy (446197910) Orthostatic hypotension (29217823) Osteoarthritis (1105055461) Palpitations (143929240) Peripheral edema (446986427) Protrusion of lumbar intervertebral disc (495402934) Raspy voice (15622512) Recurrent low back pain (739704121) Renal cyst, right (7679407045) Rib pain on left side (180694711) Shortness of breath on exertion (668119962) SOB (shortness of breath) (082755294) Spinal stenosis (851489295) SVT (supraventricular tachycardia) (09277691) Systolic ejection murmur (883078836) Trochanteric bursitis, right hip (9444064429) Umbilical hernia without obstruction and without gangrene (1446777077) Vitamin D deficiency (90353519) MEDICATIONS: Active Inpt Meds: None Active PRN Meds: None One Time Meds: None Active IV Meds: Lactated Ringers Infusion 1,000 mL (LR 1,000 mL) Start: 03/21/24 10:05:00 EDT, Rate: 50 mL/hr, 03/21/24 10:05:00 EDT ALLERGIES: (2) Peanut butter penicillin FAMILY HISTORY: SOCIAL HISTORY: PHYSICAL EXAM: VITALS: GystbhIpcdPFJdfwfDPKyP7JCZ3KqrnJu(kg) 03/21 10:1136.3--308638OS25/00993.4 24 Hr Tmax: 36.3 at 03/21 10:11 36 Hr Tmax: 36.3 at 03/21 10:11 Vital Signs are the last 5 in the past 48 hours. Weights display the last 5 within 7 days. Initial Wt: 03/21 111.4 kg 245 lb Current Wt: 03/21 111.4 kg 245 lb GENERAL: HEENT: CARDIOVASCULAR: RESPIRATORY: ABDOMEN: EXREMETIES: NEUROLOGICAL: PSYCHIATRIC: LABS: No 36hr Lab Data DIAGNOSTICS: IMPRESSION: PLAN: History and Physical Update I have examined the patient; reviewed the H&P and there are no changes to the H&P unless noted below. Digitally Signed by AROLDO STEVENS MD on 03/21/2024 10:48 AM [facility]06-21-2024 Note. MICRO - Microbiology PROCEDURE: Culture Respiratory with Gram Stain [^1 *1] SOURCE: Bronchial Washing BODY SITE: COLLECTED DATE/TIME: 03/16/2024 12:05 EDT RECEIVED DATE/TIME: 03/16/2024 14:31 EDT START DATE/TIME: 03/16/2024 14:31 EDT FREE TEXT SOURCE: FINAL REPORTS Final Report [] Verified Date/Time/Personnel: 03/18/2024 07:18 EDT Normal respiratory kong present at 48 hours Sensitivity testing not indicated PRELIMINARY REPORTS Preliminary Report [] Verified Date/Time/Personnel: 03/17/2024 11:47 EDT Negative for respiratory pathogens at 24 hours. STAINS GS [] Verified Date/Time/Personnel: 03/16/2024 15:11 EDT Rare Polymorphonuclear cells No organisms seen. Interpretive Data ^1: Culture Respiratory with Gram Stain Requests for Mycoplasma, Legionella, Fungi, Mycobacteria, Chlamydia, and Viruses require ordering of those individual tests. Performing Locations *1: This test was performed at: [facility], [address] [place] [address], [facility] ([place])03-16-2024 Procedure note Date of Service 03/16/2024 Procedure: Bronchoscopy with Fine Needle Aspiration Indication: Mediastinal lymphadenopathy A timeout was performed prior to procedure LMA was used to secure airway. Standard bronchoscope was inserted into LMA. Vocal cords were anesthetized with 6 cc of 2% lidocaine. Trachea examination was normal. Lexus was anesthetized with 4 cc of 2% lidocaine. There were thin secretions that were easily cleared. Airways were erythematous without discrete endobronchial lesions.Standard bronchoscope was then switched out for an EBUS scope Endobronchial ultrasound was used to identify diffuse bilateral bulky lymphadenopathy. Lymph node 4R was identified and sampled with 6 passes of the 21-gauge fine-needle Lymph Node 4L was identified and sampled with 6 passes of the 21-gauge fine-needle Lymph node 7 was identified and sampled with 6 passes of the 21-gauge fine-needle Preliminary onsite pathology showed lymphocytes without obvious malignancy. Bronchoscope was then switched to standard bronchoscope Therapeutic aspiration of secretions and blood was performed. Hemostasis and patency of the airway were visualized upon finishing the procedure Bronchial washings are sent for micro studies Digitally Signed by RUBÉN GABRIEL MD on 03/16/2024 08:30 PM [id number] Discharge instructions Patient Education 03/16/2024 14:57:33 1- SDS General Discharge Guidelines (06/12/2023) (CUSTOM) [place] SAME DAY SURGERY DISCHARGE INSTRUCTIONS PLEASE FOLLOW THE INSTRUCTIONS BELOW MARKED WITH AN X: __X_Regular Diet: Start with clear liquids, then soup and crackers. Gradually add other foods unless otherwise instructed by your surgeon __X_Drink extra fluids ACTIVTY: __X_Since you have had anesthetic, it would be advisable not to drive, drink alcohol, or make majordecisions over the next 24 hours. You may require more rest tonight and tomorrow __X_Do not drive vehicle while taking narcotics and as directed by your Surgeon ____Restrict activity as follows: ____Do not have sexual intercourse. Nothing in the vagina-No tampons or Douching ____No heavy lifting, pushing, or straining ____Elevate operative limb ____Ice as directed __X_Follow all written and verbal instructions given to you by your Doctor ____Other: BATHING/SHOWERING ____Sponge bathe until office visit. ____Sitting in tub of warm water may relieve discomfort ____May tub bathe ____May shower in 24-48 hours with clean linen unless otherwise instructed by your Doctor DRESSING: ____Keep operative area clean and dry ____Check the operative area for signs of bleeding. Apply pressure to the bleeding site if necessary. ____Change drip pad as needed ____Wear scrotal support for comfort WATCH FOR SIGNS OF INFECTION: (Usually appears 36-48 hours after surgery) Increased temperature (101 degrees Fahrenheit or higher) Redness or swelling Increased pain Foul odor or drainage If you have any questions, please call your doctor at the number listed on your follow-up instructions. Follow Up Care 03/03/2024 11:32:41 With:RUBÉN GABRIEL MD Address: [address] [address] [place] [address]- [phone] When: Unknown Comments:Call the office to schedule follow up appointment if one has not already been made. [facility] 06-19-2024 Summary of episode note Discharge Instructions Thank you for allowing [facility] to assist you with your healthcare needs. The following is importantdischarge information regarding your hospital visit. Your Care Team CIRILO NCIHOLE DO What to do next Scheduled Follow-Up Appointments Appointment Type When With Where Contact Information StatusSurgery 03/21/2024 11:30 AM EDT Confirmed PC OV 05/10/2024 02:00 PM EDT CIRILO NICHOLE DO [facility] [place] [address] [place] [address] Confirmed PC OV 06/29/2024 01:00 PM EDT JERRELL PRABHAKAR APRN-AUTOMOTIVE LOT ATTENDANT [facility] Suraj Confirmed Follow Up Appointments Follow Up with RUBÉN GABRIEL MD Where:[address] [facility] [address] [place] [address]- [phone] Additional Information: Call the office to schedule follow up appointment if one has not already been made. Allergies Peanut butter(Severe) Angioedema, Anaphylactic reaction penicillin(Severe) Hives Medications Please ask your primary doctor or pharmacist before taking any other medication not listed, including over the counter drugs, herbal medications, vitamins and or supplements as they may interact withyour home medications. What How Much When Instructions Last Dose Unchanged acetaminophen (Tylenol 8 Hour 650 mg oral tablet, extended release) 2 tab(s) by mouth Three (3) times a day as needed for as needed for pain Unchanged aspirin (aspirin 81 mg oral delayed release tablet) 1 tab(s) by mouth Daily at bedtime do not crush or chew. Pt to call dr gabriel for hold date instructions, is to get bleeding time lab work done ordered per Bartolo paz and will get at [facility] Unchanged DULoxetine (DULoxetine 30 mg oral delayed release capsule) 1 cap by mouth Once a day Duration: 14 Days do not crush or chew. Take 30 mg PO daily for two weeks then increase to 60 mg PO daily thereafter Unchanged DULoxetine (DULoxetine 60 mg oral delayed release capsule) 1 cap by mouth Once a day Duration: 90 Days do not crush or chew. Take 30 mg PO daily for two weeks then increase to 60 mg PO daily thereafter Unchanged ergocalciferol (Vitamin D2 1.25 mg (50,000 intl units) oral capsule) 1 cap by mouth Every Thursday Duration: 90 Days Unchanged ferrous sulfate (ferrous sulfate 325 mg (65 mg elemental iron) oral tablet) 1 tab(s) by mouth Thursday / Thursday / Thursday Duration: 90 Days may take with food to minimize abdominal discomfort Unchanged levothyroxine (Synthroid 75 mcg (0.075 mg) oral tablet) 1 tab(s) by mouth Once a day (in the morning) Duration: 90 Days SANDRA - synthroid Unchanged lisinopril (lisinopril 10 mg oral tablet) 1 tab(s) by mouth Daily at bedtime Duration: 90 Days Unchanged methocarbamol (methocarbamol 750 mg oral tablet) 2 tab(s) by mouth Three (3) times a day as needed for as needed for pain Duration: [address], operate heavy machinery, or drink alcohol while on this medication. Unchanged multivitamin (Multivitamin) 1 tab(s) by mouth Once a day (in the morning) Unchanged nystatin topical (nystatin 100,000 units/ g topical cream) 1 application Topical Two (2) times a day as needed for Rash Duration: 30 Days Apply to the affected area twice daily until healing complete. Unchanged omeprazole (omeprazole 40 mg oral delayed release capsule) 1 cap by mouth Once a day before a meal Duration: 90 Days before a meal Unchanged polyethylene glycol 3350 (MiraLax oral powder for reconstitution) 17 gram(s) by mouth Thursday / Thursday / Thursday With Iron Unchanged senna (senna (sennosides) 8.6 mg oral tablet) 2 tab(s) by mouth Two (2) times a day as needed for as needed for constipation Unchanged zinc gluconate (zinc (as gluconate) 50 mg oral tablet) 1 tab(s) by mouth Once a day (in the morning) Please take this list to your next doctor s visit. Bring all medications you take, including over the counter medications, herbals and other supplements with you to your doctor s visit. Patients and families are reminded to discard old lists and to update any records with all medication providers or retail pharmacies. Education Materials [facility] SAME DAY SURGERY DISCHARGE INSTRUCTIONS PLEASE FOLLOW THE INSTRUCTIONS BELOW MARKED WITH AN X: __X_Regular Diet: Start with clear liquids, then soup and crackers. Gradually add other foods unless otherwise instructed by your surgeon __X_Drink extra fluids ACTIVTY: __X_Since you have had anesthetic, it would be advisable not to drive, drink alcohol, or make majordecisions over the next 24 hours. You may require more rest tonight and tomorrow __X_Do not drive vehicle while taking narcotics and as directed by your Surgeon ____Restrict activity as follows: ____Do not have sexual intercourse. Nothing in the vagina-No tampons or Douching ____No heavy lifting, pushing, or straining ____Elevate operative limb ____Ice as directed __X_Follow all written and verbal instructions given to you by your Doctor ____Other: BATHING/SHOWERING ____Sponge bathe until office visit. ____Sitting in tub of warm water may relieve discomfort ____May tub bathe ____May shower in 24-48 hours with clean linen unless otherwise instructed by your Doctor DRESSING: ____Keep operative area clean and dry ____Check the operative area for signs of bleeding. Apply pressure to the bleeding site if necessary. ____Change drip pad as needed ____Wear scrotal support for comfort WATCH FOR SIGNS OF INFECTION: (Usually appears 36-48 hours after surgery) Increased temperature (101 degrees Fahrenheit or higher) Redness or swelling Increased pain Foul odor or drainage If you have any questions, please call your doctor at the number listed on your follow-up instructions. Additional Information VACCINATE! IT SAVES LIVES! Members of the community who have not yet received the COVID-19 vaccine and would like to receive it can visit one of [facility] vaccine clinics. There are many vaccine clinic locations within the [facility]. For locations and available times, please visit [email or web address] It is important to note that some COVID mobile vaccine clinics are held outdoors and may be canceled in rainy or stormy conditions. To learn more about pediatric vaccinations (ages 5-11), we invite you to visit the [facility] webpage. [email or web address] learn more about the COVID-19 vaccine, we invite you to visit the CDC website for a list of frequently asked questions.https://www.cdc.gov/coronavirus/2019-ncov/vaccines/faq.html [facility] Patient Portal Access Instructions: Stay connected with your healthcare team and access your personal medical information anytime with the [facility] Patient Portal. Please follow the directions below to create your [employer] account: 1.Access the email account you provided upon registration to the hospital/physician office.2.Look for an invitation email from [facility].3.Open the email and access the invitation link: AcceptInvitation to [employer].4.Fill in the required collins to create your account. To access your account, visit [email or web address]. Click the blue button labeled Access Patient Portal and then log in with the username and password that you created in the steps above. You will be able to view your test results, lab results, a summary of your visits, upcoming appointments and more. There is also a convenient messaging option where you can send secure messages to your p [employer]. In addition, you will have the ability to download any documents or summaries to your computer and/or send the information securely to a physician. Remember that your healthcare information is confidential, so carefully consider who you will allowto register on the [facility] Patient Portal for access to your information. You can also access the [employer] Patient Portal on the [facility] [employer]. Simply click on Patient Portal and then log into your account. If you would like to receive a full copy of your medical records, please contact the [facility] Medical Records Department by calling [phone], Thursday through Thursday between 8 a.m. and 4:30 p.m. HOW TO SAFELY DISPOSE OF PRESCRIPTION MEDICATIONS Please use one of the following methods to safely dispose of your unused medications. 1.Use a drug disposal kit: the drug disposal pouch allows you to safely discard your old and unuseddrugs. Ask your nurse to give you one when you are discharged.2.Visit a local take-back location: Many local pharmacies and police departments have programs that collect old and unwanted prescriptiondrugs. Call your local pharmacy or go to http://bit.ly/6I5Tg2r to find one close to you.3.Make use of household items: Use cat litter or old coffee grounds to dispose medications if other options arenot available. Mix your drugs with these household products, seal them in an airtight container andthrow it into the garbage. Call [facility]: [phone] to be sure your drugs can be disposed of in this way. Some medicines may require a different approach.4.Never flush your medications down the toilet. IF YOU HAVE BEEN PRESCRIBED AN OPIOID FOR PAIN If you have been prescribed an opioid (such as hydrocodone, oxycodone or morphine), it is critical to understand the possible side effects and risks of opioid pain medications. Even when taken as directed, opioids can have several side effects including: Tolerance, meaning you might need to take more of a medication for the same pain relief. Nausea, vomiting and/or constipation. Sleepiness, dizziness, dry mouth, confusion, depression or itching. Physical dependence, meaning you have withdrawal symptoms when a medication is stopped, can develop within a few days. KNOW YOUR RESPONSIBILITIES It is important to know exactly how much and how often to take the opioid pain medications you are prescribed. Never take opioids in higher amounts or more often than prescribed. Do not combine opioids with alcohol or other drugs that cause drowsiness, such as benzodiazepines, also known as benzos, including diazepam and alprazolam, muscle relaxants or sleep aids. Never sell or share prescription opioids. This is illegal. Store opioids in a secure place and out of reach of others (including children, family, friends and visitors). The last page of this document has been signed and retained as a CHART COPY. Signatures Patient Education Materials 1- SDS General Discharge Guidelines (06/12/2023) (CUSTOM) Medication Leaflets My discharge plan and instructions have been reviewed and explained to me and I,SHASTA GRACE understand my current condition and have read and understand these discharge instructions. I have received a written copy of the plan/instructions. If I have questions, I am aware that I should contact my doctor. Patient/Drawing Tracer Signature: Date/Time: Relationship to Patient: Witness Name/Signature: [id number] Anesthesiology Consult note Patient: SHASTA GRACE Age: 58 years Sex: Female : 1965 Associated Diagnoses: None Author: RUT HARDEN MD Postoperative Information Post Operative Info: Post op day: Post Anesthesia Care Unit. Patient location: PACU. Assessment Postanesthesia assessment Vitals: Vital signs from flowsheet : Vital Signs 03/16/2024 14:35 EDT Temperature Temporal Artery 36.4 DegC Heart Rate Monitored 89 bpm Respiratory Rate 20 br/min Systolic Blood Pressure Non-Invasive 134 mmHg Diastolic Blood Pressure Non-Invasive 77 mmHg Mean Arterial Pressure (NBP) 94 mmHg 03/16/2024 14:20 EDT Heart Rate Monitored 92 bpm Respiratory Rate 20 br/min Systolic Blood Pressure Non-Invasive 122 mmHg Diastolic Blood Pressure Non-Invasive 61 mmHg Mean Arterial Pressure (NBP) 76 mmHg 03/16/2024 14:16 EDT Peripheral Pulse Rate 86 bpm Respiratory Rate 20 br/min Systolic Blood Pressure Non-Invasive 124 mmHg Diastolic Blood Pressure Non-Invasive 78 mmHg 03/16/2024 14:15 EDT Heart Rate Monitored 89 bpm 03/16/2024 14:06 EDT Heart Rate Monitored 92 bpm Respiratory Rate 20 br/min Systolic Blood Pressure Non-Invasive 124 mmHg Diastolic Blood Pressure Non-Invasive 78 mmHg Mean Arterial Pressure (NBP) 92 mmHg 03/16/2024 13:50 EDT Heart Rate Monitored 101 bpm HI Respiratory Rate 20 br/min Systolic Blood Pressure Non-Invasive 128 mmHg Diastolic Blood Pressure Non-Invasive 73 mmHg Mean Arterial Pressure (NBP) 91 mmHg 03/16/2024 13:35 EDT Temperature Temporal Artery 36.1 DegC Heart Rate Monitored 93 bpm Respiratory Rate 20 br/min Systolic Blood Pressure Non-Invasive 142 mmHg HI Diastolic Blood Pressure Non-Invasive 84 mmHg Mean Arterial Pressure (NBP) 102 mmHg 03/16/2024 13:25 EDT Heart Rate Monitored 83 bpm bpm Respiratory Rate - Anes 15 br/min br/min 03/16/2024 13:24 EDT Systolic Blood Pressure Non-Invasive 118 mmHg mmHg Diastolic Blood Pressure Non-Invasive 58 mmHg mmHg 03/16/2024 13:21 EDT Systolic Blood Pressure Non-Invasive 118 mmHg mmHg Diastolic Blood Pressure Non-Invasive 54 mmHg mmHg 03/16/2024 13:20 EDT Heart Rate Monitored 82 bpm bpm Respiratory Rate - Anes 13 br/min br/min 03/16/2024 13:18 EDT Systolic Blood Pressure Non-Invasive 84 mmHg mmHg Diastolic Blood Pressure Non-Invasive 48 mmHg mmHg 03/16/2024 13:16 EDT Systolic Blood Pressure Non-Invasive 87 mmHg mmHg Diastolic Blood Pressure Non-Invasive 51 mmHg mmHg 03/16/2024 13:15 EDT Temperature (Route Not Specified) 36.55 DegC DegC Heart Rate Monitored 82 bpm bpm Respiratory Rate - Anes 13 br/min br/min 03/16/2024 13:12 EDT Systolic Blood Pressure Non-Invasive 100 mmHg mmHg Diastolic Blood Pressure Non-Invasive 56 mmHg mmHg 03/16/2024 13:10 EDT Temperature (Route Not Specified) 36.55 DegC DegC Heart Rate Monitored 83 bpm bpm Respiratory Rate - Anes 0 br/min br/min 03/16/2024 13:09 EDT Systolic Blood Pressure Non-Invasive 91 mmHg mmHg Diastolic Blood Pressure Non-Invasive 64 mmHg mmHg 03/16/2024 13:06 EDT Systolic Blood Pressure Non-Invasive 107 mmHg mmHg Diastolic Blood Pressure Non-Invasive 54 mmHg mmHg 03/16/2024 13:05 EDT Temperature (Route Not Specified) 36.58 DegC DegC Heart Rate Monitored 82 bpm bpm Respiratory Rate - Anes 12 br/min br/min 03/16/2024 13:03 EDT Systolic Blood Pressure Non-Invasive 98 mmHg mmHg Diastolic Blood Pressure Non-Invasive 54 mmHg mmHg 03/16/2024 13:00 EDT Temperature (Route Not Specified) 36.58 DegC DegC Heart Rate Monitored 87 bpm bpm Respiratory Rate - Anes 18 br/min br/min Systolic Blood Pressure Non-Invasive 107 mmHg mmHg Diastolic Blood Pressure Non-Invasive 64 mmHg mmHg 03/16/2024 12:57 EDT Systolic Blood Pressure Non-Invasive 87 mmHg mmHg Diastolic Blood Pressure Non-Invasive 52 mmHg mmHg 03/16/2024 12:55 EDT Temperature (Route Not Specified) 36.6 DegC DegC Heart Rate Monitored 82 bpm bpm Respiratory Rate - Anes 16 br/min br/min 03/16/2024 12:54 EDT Systolic Blood Pressure Non-Invasive 81 mmHg mmHg Diastolic Blood Pressure Non-Invasive 46 mmHg mmHg 03/16/2024 12:51 EDT Systolic Blood Pressure Non-Invasive 78 mmHg mmHg Diastolic Blood Pressure Non-Invasive 49 mmHg mmHg 03/16/2024 12:50 EDT Temperature (Route Not Specified) 36.66 DegC DegC Heart Rate Monitored 83 bpm bpm Respiratory Rate - Anes 16 br/min br/min 03/16/2024 12:48 EDT Systolic Blood Pressure Non-Invasive 89 mmHg mmHg Diastolic Blood Pressure Non-Invasive 47 mmHg mmHg 03/16/2024 12:45 EDT Temperature (Route Not Specified) 36.72 DegC DegC Heart Rate Monitored 85 bpm bpm Respiratory Rate - Anes 16 br/min br/min Systolic Blood Pressure Non-Invasive 80 mmHg mmHg Diastolic Blood Pressure Non-Invasive 50 mmHg mmHg 03/16/2024 12:42 EDT Systolic Blood Pressure Non-Invasive 89 mmHg mmHg Diastolic Blood Pressure Non-Invasive 46 mmHg mmHg 03/16/2024 12:40 EDT Temperature (Route Not Specified) 36.81 DegC DegC Heart Rate Monitored 85 bpm bpm Respiratory Rate - Anes 15 br/min br/min 03/16/2024 12:39 EDT Systolic Blood Pressure Non-Invasive 91 mmHg mmHg Diastolic Blood Pressure Non-Invasive 44 mmHg mmHg 03/16/2024 12:36 EDT Systolic Blood Pressure Non-Invasive 100 mmHg mmHg Diastolic Blood Pressure Non-Invasive 46 mmHg mmHg 03/16/2024 12:35 EDT Temperature (Route Not Specified) 36.92 DegC DegC Heart Rate Monitored 83 bpm bpm Respiratory Rate - Anes 16 br/min br/min 03/16/2024 12:33 EDT Systolic Blood Pressure Non-Invasive 120 mmHg mmHg Diastolic Blood Pressure Non-Invasive 58 mmHg mmHg 03/16/2024 12:31 EDT Systolic Blood Pressure Non-Invasive 139 mmHg mmHg Diastolic Blood Pressure Non-Invasive 57 mmHg mmHg 03/16/2024 12:30 EDT Temperature (Route Not Specified) 37.01 DegC DegC Heart Rate Monitored 96 bpm bpm Respiratory Rate - Anes 35 br/min br/min 03/16/2024 12:28 EDT Systolic Blood Pressure Non-Invasive 200 mmHg mmHg Diastolic Blood Pressure Non-Invasive 174 mmHg mmHg 03/16/2024 12:25 EDT Temperature (Route Not Specified) 36.49 DegC DegC Heart Rate Monitored 91 bpm bpm Respiratory Rate - Anes 22 br/min br/min 03/16/2024 12:24 EDT Systolic Blood Pressure Non-Invasive 127 mmHg mmHg Diastolic Blood Pressure Non-Invasive 61 mmHg mmHg 03/16/2024 12:21 EDT Systolic Blood Pressure Non-Invasive 143 mmHg mmHg Diastolic Blood Pressure Non-Invasive 67 mmHg mmHg 03/16/2024 12:20 EDT Heart Rate Monitored 87 bpm bpm Respiratory Rate - Anes 0 br/min br/min 03/16/2024 12:18 EDT Systolic Blood Pressure Non-Invasive 159 mmHg mmHg Diastolic Blood Pressure Non-Invasive 80 mmHg mmHg 03/16/2024 10:00 EDT Temperature Temporal Artery 36.1 DegC Peripheral Pulse Rate 78 bpm Respiratory Rate 18 br/min Systolic Blood Pressure Non-Invasive 138 mmHg Diastolic Blood Pressure Non-Invasive 87 mmHg . Mental status: at preoperative baseline. Respiratory function: respirations are non-labored, stable. Respiratory support: none. CV function: stable. Cardiovascular support: none. Pain: satisfactory. Nausea status: satisfactory. Postoperative hydration status: within normal limits. Notes: Patient is sufficiently recovered from anesthesia to participate in the evaluation. No follow-up care needed. No complications post-anesthesia.. Digitally Signed by RUT HARDEN MD on 03/16/2024 02:43 PM [id number] Anesthesiology Consult note Patient: SHASTA GRACE Age: 58 years Sex: Female : 1965 Associated Diagnoses: None Author: AMELIA INCHOLS DO Preoperative Information Time of last food or liquid consumption: 03/15/2024 23:30:00 Anesthesia history Patient's history: negative. Family's history: negative. Review of Systems Respiratory: hilar lymphadenopathy. Cardiovascular: Palpitations, HTN, hilar lymphadenopathy, SVT. Gastrointestinal: Reflux. Endocrine: hypothyroid. Integumentary: morbid obesity. Neurologic: anxiety. Health Status Allergies: Allergic Reactions (Selected) Severe Peanut butter- Angioedema and anaphylactic reaction. Penicillin- Hives., Allergies (2) ActiveSeverityReaction Peanut butterSevereAnaphylactic reaction, Angioedema penicillinSevereHives Current medications: (Selected) Inpatient Medications Ordered NS 1,000 mL: Start: 03/16/24 5:00:00 EDT, Rate: 20 mL/hr, 03/16/24 5:00:00 EDT lidocaine 1% preservative-free injectable solution: Start: 03/16/24 5:00:00 EDT, Dose = 2.5 mg, = 0.25 mL, Intradermal, PREOP pharm, 03/16/24 5:00:00 EDT Prescriptions Prescribed DULoxetine 30 mg oral delayed release capsule: Dose : 30 mg = 1 cap(s), Oral, qDay, do not crush orchew. Take 30 mg PO daily for two weeks then increase to 60 mg PO daily thereafter, # 14 cap(s), 0 Refill(s), [id number], 164.7, cm, 03/09/24 13:33:00 EDT, Height, kg, 03/09/24 13:... DULoxetine 60 mg oral delayed release capsule: Dose : 60 mg = 1 cap(s), Oral, qDay, do not crush orchew. Take 30 mg PO daily for two weeks then increase to 60 mg PO daily thereafter, # 90 cap(s), 0 Refill(s), Pharmacy: [facility]/pharmacy #[id number], 164.7, cm, 03/09/24 13:33:00 EDT, Height, kg, 03/09/24 13:... Synthroid 75 mcg (0.075 mg) oral tablet: Dose : 75 mcg = 1 tab(s), Oral, qAM, SANDRA - synthroid, # 90tab(s), 1 Refill(s), SANDRA, [id number], 163.2, cm, 12/31/23 11:36:00 EDT, Height, kg, 12/31/23 11:36:00 EDT, Dosing Weight Vitamin D2 1.25 mg (50,000 intl units) oral capsule: Dose : 50,000 International_Unit = 1 cap(s), Oral, Thursday, # 13 cap(s), 1 Refill(s), Pharmacy: [facility]/pharmacy #[id number], 163.2, cm, 12/31/23 11:36:00 EDT, Height, kg, 12/31/23 11:36:00 EDT, Dosing Weight aspirin 81 mg oral delayed release tablet: Dose : 81 mg = 1 tab(s), Oral, qHS, do not crush or chew. Pt to call dr gabriel for hold date instructions, is to get bleeding time lab work done ordered per [facility] first and [facility] get at [facility] 03/08/24, # 90 tab(s), 3 Refill(s), Pharmacy:... ferrous sulfate 325 mg (65 mg elemental iron) oral tablet: Dose : 325 mg = 1 tab(s), Oral, Mon/Wed/Fri, may take with food to minimize abdominal discomfort, # 39 tab(s), 0 Refill(s), Pharmacy: [facility]/pharmacy #[id number], 165, cm, 02/24/24 11:36:00 EDT, Height, kg, 02/24/24 11:36:00 EDT, Dosing Weight lisinopril 10 mg oral tablet: Dose : 10 mg = 1 tab(s), Oral, qHS, # 90 tab(s), 1 Refill(s), [id number], 163.2, cm, 12/31/23 11:36:00 EDT, Height, kg, 12/31/23 11:36:00 EDT, Dosing Weight methocarbamol 750 mg oral tablet: Dose : 1,500 mg = 2 tab(s), Oral, TID, PRN as needed for pain, Donot drive, operate heavy machinery, or drink alcohol while on this medication., # 84 tab(s), 0 Refill(s), Pharmacy: [facility]/pharmacy #[id number], 164.7, cm, 03/09/24 13:33:00 EDT, Height, kg, ... nystatin 100,000 units/g topical cream: Apply 1 azar, Topical, BID, PRN Rash, Apply to the affected area twice daily until healing complete., # 30 gram(s), 1 Refill(s), Pharmacy: [facility]/pharmacy #[id number], Cream, 163.5, cm, 02/18/22 12:55:00 EDT, Height, 113.4, kg, 02/18/22 12:55:00 EDT, Dosing Weight... omeprazole 40 mg oral delayed release capsule: Dose : 40 mg = 1 cap(s), Oral, qDayAC, before a meal, # 90 cap(s), 0 Refill(s), Pharmacy: [facility]/pharmacy #[id number], 164.7, cm, 03/09/24 13:33:00 EDT, Height, kg, 03/09/24 13:33:00 EDT, Dosing Weight Documented Medications Documented MiraLax oral powder for reconstitution: Dose : 17 gram(s) =, Oral, Mon/Thu/Thu, With Iron, # 510 gram(s), 0 Refill(s) Multivitamin: Dose = 1 tab(s), Oral, qAM, 0 Refill(s) Tylenol 8 Hour 650 mg oral tablet, extended release: Dose : 1,300 mg = 2 tab(s), Oral, TID, PRN as needed for pain, # 24 tab(s), 0 Refill(s) senna (sennosides) 8.6 mg oral tablet: Dose : 17.2 mg = 2 tab(s), Oral, BID, PRN as needed for constipation, # 20 tab(s), 0 Refill(s) zinc (as gluconate) 50 mg oral tablet: Dose : 50 mg = 1 tab(s), Oral, qAM, # 30 tab(s), 0 Refill(s), Medications (2) Active Scheduled: (1) lidocaine 1% (MPF) 2 mL vial pf 2.5 mg 0.25 mL, Intradermal, PREOP pharm Continuous: (1) NS (0.9% nacl) 1,000 mL 1,000 mL, Intravenous, 20 mL/hr PRN: (0) Problem list: Medical Atherosclerosis of abdominal aorta / SNOMED CT 189658197 / Confirmed Bloating / SNOMED CT 012225436 / Confirmed Abdominal pain / SNOMED CT 41764179 / Confirmed Facet arthropathy of spine / SNOMED CT 2535428708 / Confirmed Benign paroxysmal vertigo, unspecified ear / SNOMED CT 091057300 / Confirmed Morbid obesity with BMI of 40.0-44.9, adult / SNOMED CT 4486164405 / Confirmed Bradycardia / SNOMED CT 58793949 / Confirmed Constipation / SNOMED CT 92892733 / Confirmed Renal cyst, right / SNOMED CT 4945539147 / Confirmed Abnormal tympanic membrane of right ear / SNOMED CT 3192532518 / Confirmed Diverticulosis of colon / SNOMED CT 2009278620 / Confirmed Dizziness / SNOMED CT 2563246770 / Confirmed SOB (shortness of breath) / SNOMED CT 026459950 / Confirmed Shortness of breath on exertion / SNOMED CT 891263590 / Confirmed Early satiety / SNOMED CT 5801737370 / Confirmed Systolic ejection murmur / SNOMED CT 754410332 / Confirmed Elevated liver enzymes / SNOMED CT 4597269455 / Confirmed Epigastric abdominal pain / SNOMED CT 502777949 / Confirmed Erythema migrans (Lyme disease) / SNOMED CT 726589344 / Confirmed Fibromyalgia / SNOMED CT 614709958 / Confirmed Gastroesophageal reflux disease / SNOMED CT 246204433 / Confirmed Gastroesophageal reflux / SNOMED CT 119698333 / Confirmed Generalized anxiety disorder / SNOMED CT 92645706 / Confirmed Elevated serum globulin level / SNOMED CT 9414164933 / Confirmed Trochanteric bursitis, right hip / SNOMED CT 9295041463 / Confirmed 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 / Confirmed Hilar lymphadenopathy / SNOMED CT 111265598 / Confirmed History of abnormal cervical Pap smear / SNOMED CT 1074617179 / Confirmed Elevated brain natriuretic peptide (BNP) level / SNOMED CT 317217545 / Confirmed Hyperkalemia / SNOMED CT 95015180 / Confirmed Hyperlipemia / SNOMED CT 13673676 / Confirmed Hypertension / SNOMED CT 3416736514 / Confirmed Hyponatremia / SNOMED CT 297625263 / Confirmed Hypothyroidism / SNOMED CT 65637704 / Confirmed Iron deficiency / SNOMED CT 97318246 / Confirmed Irregular heartbeat / SNOMED CT 574461925 / Confirmed Left upper quadrant abdominal pain / SNOMED CT 062974603 / Confirmed Leukocytosis / SNOMED CT 884839872 / Confirmed Lightheadedness / SNOMED CT 4016001498 / Confirmed Recurrent low back pain / SNOMED CT 410608041 / Confirmed Low back pain without sciatica / SNOMED CT 783845583 / Confirmed Mediastinal adenopathy / SNOMED CT 01766455 / Confirmed Mitral annular calcification / SNOMED CT 643710131 / Confirmed Multiple thyroid nodules / SNOMED CT 332388623 / Confirmed Neck pain / SNOMED CT 825979856 / Confirmed Numbness / SNOMED CT 52372519 / Confirmed Nystagmus / SNOMED CT 20151002 / Confirmed Orthostatic hypotension / SNOMED CT 44978148 / Confirmed Osteoarthritis / SNOMED CT 3885463960 / Confirmed Palpitations / SNOMED CT 478813420 / Confirmed Encounter for examination following treatment at hospital / SNOMED CT 291515899 / Confirmed Peripheral edema / SNOMED CT 019923621 / Confirmed Protrusion of lumbar intervertebral disc / SNOMED CT 158684674 / Confirmed Rib pain on left side / SNOMED CT 711312182 / Confirmed Spinal stenosis / SNOMED CT 902342150 / Confirmed Fatty liver / SNOMED CT 738926340 / Confirmed SVT (supraventricular tachycardia) / SNOMED CT 24675831 / Confirmed Lymphadenopathy, thoracic / SNOMED CT 500454 / Confirmed Mild tricuspid valve regurgitation / SNOMED CT 507015166 / Confirmed Umbilical hernia without obstruction and without gangrene / SNOMED CT 7570858570 / Confirmed Vitamin D deficiency / SNOMED CT 76261064 / Confirmed, Active Problems (71) Abdominal pain Abnormal tympanic membrane of right ear Arthritis At risk for falls At risk for sleep apnea Atherosclerosis of abdominal aorta Benign paroxysmal vertigo, unspecified ear Bloating Bradycardia Cerebellar infarct Chronic cough Claustrophobia Constipation Diverticulosis of colon Dizziness Early satiety Elevated brain natriuretic peptide (BNP) level Elevated liver enzymes Elevated serum globulin level Encounter for examination following treatment at hospital Epigastric abdominal pain Erythema migrans (Lyme disease) Facet arthropathy of spine Fatty liver Fibromyalgia Gastroesophageal reflux Gastroesophageal reflux disease Generalized anxiety disorder Glasses Enio's disease Hilar lymphadenopathy History of abnormal cervical Pap smear Hyperkalemia Hyperlipemia Hypertension Hyponatremia Hypothyroidism Iron deficiency Irregular heartbeat Left upper quadrant abdominal pain Leukocytosis Lightheadedness Low back pain without sciatica Low serum iron Lymphadenopathy, thoracic Mediastinal adenopathy Mild tricuspid valve regurgitation Mitral annular calcification Morbid obesity with BMI of 40.0-44.9, adult Multiple thyroid nodules Neck pain Numbness Nystagmus On anticoagulant therapy Orthostatic hypotension Osteoarthritis Palpitations Peripheral edema Protrusion of lumbar intervertebral disc Raspy voice Recurrent low back pain Renal cyst, right Rib pain on left side Shortness of breath on exertion SOB (shortness of breath) Spinal stenosis SVT (supraventricular tachycardia) Systolic ejection murmur Trochanteric bursitis, right hip Umbilical hernia without obstruction and without gangrene Vitamin D deficiency Histories Past Medical History: Resolved Elevated fasting glucose (229608799): Resolved. Yeast vaginitis (509504574): Resolved. Comments: 03/08/2024 EDT 8:21 ROBBIE Taylor after use of antibiotic Procedure history: Colonoscopy ([id number]) in 2012 at 48 Years. Comments: 04/25/2019 17:18 Hamida Augustine LPN normal, Dr Stevens Breast biopsy sample ([id number]) in 2010 at 46 Years. Comments: 04/25/2019 17:17 Hamida Augustine LPN left Back Surgery ([id number]). Comments: 03/08/2024 8:33 ROBBIE Taylor right then left 2006 and 201103/08/2024 8:33 ROBBIE Taylor Discectomy L 5 Hysterectomy ([id number]). delivery ([id number]). Social History: Social & Psychosocial Habits Alcohol 03/16/2024 Use: Current Type: Wine Frequency: 1-2 times per month Substance Abuse 03/16/2024 Use: Never Tobacco 03/16/2024 Tobacco Use: Never (less than 100 in l Home/Environment 03/16/2024 Living situation: Home/Independent Safe place to go: Yes Other risks in environment: no smoke exposure Domestic Concerns None Lives In 1st floor bathroom, 2nd floor bedroom, Multilevel home Current Home Treatments None Special Services and Community Resources None Spouse Name erica Marital Status of Patient if Patient Independent Adult: Nutrition/Health 03/16/2024 Type of diet: Regular Caffeine intake amount: occasionally-sweet tea or soda Appetite Fair Eating Difficulties None Physical Examination Vital Signs (last 24 hrs) Last Charted Temp Xqisnakd20.1 DegC (MAR 16 10:00) TGS373 mmHg (MAR 16 10:00) DBP87 mmHg (MAR 16 10:00) Measurements from flowsheet : Measurements 03/16/2024 10:00 EDT Height 163.8 cm Height in inches 64.5 inch(es) Admission Weight 106.6 kg Weight Lbs 234.5 lb Weight Method Actual [place] Body Weight 55.82 kg Type of Scale Used Bed scale Admission Body Mass Index 39.73 m2 General: Alert and oriented. Airway: Normal temporomandibular joint mobility, Normal mouth. Mallampati classification: III (soft palate, base of uvula visible). Dentition Evaluation: Own teeth, Missing teeth. Respiratory: Lungs are clear to auscultation, Respirations are non-labored. Cardiovascular: Normal rate. Heart Sounds: Normal. Neurologic: Alert, Oriented. Assessment and Plan [place] [employer] (ASA) physical status classification: Class III. Anesthetic Preoperative Plan Anesthetic technique: General. Induction: intravenously. Maintenance airway: Laryngeal mask airway. Postoperative pain management: Per surgeon. Risks discussed: nausea, vomiting, headache, sore throat, dental injury, hypotension, allergic reaction, serious complications. Informed consent: signed by patient. Notes: Patient is morbidly obese with a h/o hilar lymphadenopathy, HTN, palpitations, GERD, anxiety. Discussed general anestheia and she agrees to proceed.. Digitally Signed by AMELIA NICHOLS DO on 03/16/2024 11:49 AM [id number]. MICRO - Microbiology PROCEDURE: Throat Culture [*1] SOURCE: Throat BODY SITE: COLLECTED DATE/TIME: 02/13/2024 12:45 EDT RECEIVED DATE/TIME: 02/13/2024 18:12 EDT START DATE/TIME: 02/13/2024 18:12 EDT FREE TEXT SOURCE: FINAL REPORTS Final Report [] Verified Date/Time/Personnel: 02/16/2024 11:53 EDT Normal throat kong present Sensitivity Testing: Not Indicated PRELIMINARY REPORTS Preliminary Report [] Verified Date/Time/Personnel: 02/14/2024 13:04 EDT Culture results pending. Performing Locations *1: This test was performed at: [facility], [address] [place] [address], [id number] , [facility] ([place])01-24-2024 Hospital Discharge instructions Patient Education 01/24/2024 02:33:47 Low-Residue Diet Low-Fiber Diet Eggs are high in protein and easy to digest. Eating a low-fiber diet means eating foods that don t have much fiber. These foods are easy to digest. Most of the fiber that you eat passes undigested through your bowel. This is what forms stool. Low-fiber foods can help to slow down your bowel movements. When you eat a low-fiber diet, you have fewer stools. This lets your intestine rest. Your healthcare provider will tell you how long you need to be on this diet. It may only be for a short time. Low-fiber foods often don t give you all the nutrients you need to stay healthy. Your healthcare provider may have you take certain vitamins while you are on this diet. Reasons to eat a low-fiber diet The goal of a low-fiber diet is to limit the size and number of your stools. It may be prescribed if you: Are going through chemotherapy or radiation treatments Have had intestinal surgery Have a condition that affects your intestine, such as irritable bowel syndrome, Crohn s disease, ulcerative colitis, or diverticulitis General guidelines for a low-fiber diet In general, a low-fiber diet means having fewer than 13 grams of fiber a day. Your healthcare provider may give you a list of things you can and can t eat or drink. Read food labels. Choose foods anddrinks that have as close to zero grams of fiber as possible. Here are general guidelines to follow: Breads, pasta, cereal, rice, and other starches (6 to 11 servings daily) What to choose: white bread, biscuits, muffins, and white rolls; plain crackers; waffles; white pasta; white rice; cream of wheat; grits; white pancakes; corn flakes; cooked potatoes without skin. Fiber content of these foods should be less than 0.5 (1/2) gram per serving. What to avoid: whole-wheat or whole-grain breads, crackers, and pasta; breads with seeds or nuts; wheat germ; franko crackers; cornbread; wild or brown rice; cereals with whole-grain, bran, and granola; cereals with seeds, nuts, coconut, or dried fruit; potatoes with skin Milk and dairy (2 servings daily) What to choose: milk, buttermilk; yogurt or ice cream without seeds or nuts; custard or pudding; sour cream; cheese and cottage cheese What to avoid: ice cream and yogurt with seeds, nuts, or fruit chunks Fruit (2 to 4 servings daily) What to choose: ripe banana; ripe nectarine, peach, apricot, papaya, and plum; soft honeydew melon and cantaloupe; cooked or canned fruit without skin or seeds (not sweetened with sorbitol); applesauce; strained fruit juice (without pulp) What to avoid: raw or dried fruit; all berries; raisins; canned and raw pineapple; prunes and prunejuice; fruit juice with pulp Vegetables (3 to 5 servings daily) What to choose: well-cooked or canned vegetables without seeds, such as spinach, eggplant, green and wax beans, carrots, yellow squash, pumpkin; lettuce on a sandwich What to avoid: all raw or steamed vegetables; vegetables with seeds, such as unstrained tomato sauce; green peas; drake beans; broccoli; corn; parsnips Meats and protein (4 to 6 ounces daily) What to choose: tender, well-cooked meat, including ground meat, poultry, and fish; eggs; tofu; creamy peanut butter What to avoid: tough, chewy meat with gristle; peas, including split, yellow, and black-eyed; beans, including navy, drake, black, garbanzo, soy, cam, and lentil; peanuts and crunchy peanut butter Fats, oils, sauces, condiments (fewer than 8 teaspoons daily) What to choose: butter, margarine, oils, whipped cream, sour cream, mayonnaise, smooth dressings and sauces; plain gravy; smooth condiments What to avoid: dressing with seeds or fruit chunks; pickles and relishes Other foods and drinks What to choose: water; plain gelatin; plain puddings; pretzels; plain cookies and cakes; honey, syrup; decaffeinated drinks, including tea and coffee What to avoid: popcorn; potato chips; spicy foods; fried, greasy foods; alcohol (ask your healthcare provider); marmalade, jam, and preserves; desserts that have seeds, nuts, coconut, dried fruit, whole grains, or bran; candy that has seeds or nuts; drinks sweetened with sorbitol or other sugar substitutes; caffeinated drinks, including tea, coffee, soda, and energy drinks [id number] [employer]. [address] [place] [address], [place] [address]. All rights reserved. This information is not intended as a substitute for professional medical care. Always follow yourhealthcare professional's instructions. Follow Up Care 01/24/2024 01:25:41 With:CIRILO NICHOLE DO Address: [address] [place] [id number] [phone] When:2-4 days [facility] 04-28-2024 Note Discharge Instructions Thank you for allowing [facility] to assist you with your healthcare needs. The following is importantdischarge information regarding your hospital visit. Diagnosis from Today's Visit Abdominal bloating Bloated abdomen What to Do Next Instructions from Your Care Team No qualifying data available. Post Acute Orders No qualifying data available. You Need to Schedule the Following Appointments Follow Up with CIRILO NICHOLE DO When Within 2-4 days Where: [address] [place] [id number] [phone] Allergies Peanut butter (Anaphylactic reaction) penicillin Medications Please ask your primary doctor or pharmacist before taking any other medication not listed, including over the counter drugs, herbal medications, vitamins and or supplements as they may interact withyour home medications. What How Much When Instructions Last Dose Unchanged aspirin (aspirin 81 mg oral delayed release tablet) 1 tab(s) by mouth Every day do not crush or chew Unchanged ergocalciferol (Vitamin D2 1.25 mg (50,000 intl units) oral capsule) 1 cap by mouth Every week Duration: 90 Days Unchanged levothyroxine (Synthroid 75 mcg (0.075 mg) oral tablet) 1 tab(s) by mouth Once a day Duration: 90 Days SANDRA - synthroid Unchanged lisinopril (lisinopril 10 mg oral tablet) 1 tab(s) by mouth Once a day Duration: 90 Days Unchanged multivitamin (Multivitamin) 1 tab(s) by mouth Every day Unchanged nystatin topical (nystatin 100,000 units/ g topical cream) 1 application Topical Two (2) times a day as needed for Rash Duration: 30 Days Apply to the affected area twice daily until healing complete. Unchanged zinc sulfate (Zinc) by mouth Once a day Please take this list to your next doctor s visit. Bring all medications you take, including over the counter medications, herbals and other supplements with you to your doctor s visit. Patients and families are reminded to discard old lists and to update any records with all medication providers or retail pharmacies. Education Materials Low-Fiber Diet Eggs are high in protein and easy to digest. Eating a low-fiber diet means eating foods that don t have much fiber. These foods are easy to digest. Most of the fiber that you eat passes undigested through your bowel. This is what forms stool. Low-fiber foods can help to slow down your bowel movements. When you eat a low-fiber diet, you have fewer stools. This lets your intestine rest. Your healthcare provider will tell you how long you need to be on this diet. It may only be for a short time. Low-fiber foods often don t give you all the nutrients you need to stay healthy. Your healthcare provider may have you take certain vitamins while you are on this diet. Reasons to eat a low-fiber diet The goal of a low-fiber diet is to limit the size and number of your stools. It may be prescribed if you: Are going through chemotherapy or radiation treatments Have had intestinal surgery Have a condition that affects your intestine, such as irritable bowel syndrome, Crohn s disease, ulcerative colitis, or diverticulitis General guidelines for a low-fiber diet In general, a low-fiber diet means having fewer than 13 grams of fiber a day. Your healthcare provider may give you a list of things you can and can t eat or drink. Read food labels. Choose foods anddrinks that have as close to zero grams of fiber as possible. Here are general guidelines to follow: Breads, pasta, cereal, rice, and other starches (6 to 11 servings daily) What to choose: white bread, biscuits, muffins, and white rolls; plain crackers; waffles; white pasta; white rice; cream of wheat; grits; white pancakes; corn flakes; cooked potatoes without skin. Fiber content of these foods should be less than 0.5 (1/2) gram per serving. What to avoid: whole-wheat or whole-grain breads, crackers, and pasta; breads with seeds or nuts; wheat germ; franko crackers; cornbread; wild or brown rice; cereals with whole-grain, bran, and granola; cereals with seeds, nuts, coconut, or dried fruit; potatoes with skin Milk and dairy (2 servings daily) What to choose: milk, buttermilk; yogurt or ice cream without seeds or nuts; custard or pudding; sour cream; cheese and cottage cheese What to avoid: ice cream and yogurt with seeds, nuts, or fruit chunks Fruit (2 to 4 servings daily) What to choose: ripe banana; ripe nectarine, peach, apricot, papaya, and plum; soft honeydew melon and cantaloupe; cooked or canned fruit without skin or seeds (not sweetened with sorbitol); applesauce; strained fruit juice (without pulp) What to avoid: raw or dried fruit; all berries; raisins; canned and raw pineapple; prunes and prunejuice; fruit juice with pulp Vegetables (3 to 5 servings daily) What to choose: well-cooked or canned vegetables without seeds, such as spinach, eggplant, green and wax beans, carrots, yellow squash, pumpkin; lettuce on a sandwich What to avoid: all raw or steamed vegetables; vegetables with seeds, such as unstrained tomato sauce; green peas; drake beans; broccoli; corn; parsnips Meats and protein (4 to 6 ounces daily) What to choose: tender, well-cooked meat, including ground meat, poultry, and fish; eggs; tofu; creamy peanut butter What to avoid: tough, chewy meat with gristle; peas, including split, yellow, and black-eyed; beans, including navy, drake, black, garbanzo, soy, cam, and lentil; peanuts and crunchy peanut butter Fats, oils, sauces, condiments (fewer than 8 teaspoons daily) What to choose: butter, margarine, oils, whipped cream, sour cream, mayonnaise, smooth dressings and sauces; plain gravy; smooth condiments What to avoid: dressing with seeds or fruit chunks; pickles and relishes Other foods and drinks What to choose: water; plain gelatin; plain puddings; pretzels; plain cookies and cakes; honey, syrup; decaffeinated drinks, including tea and coffee What to avoid: popcorn; potato chips; spicy foods; fried, greasy foods; alcohol (ask your healthcare provider); marmalade, jam, and preserves; desserts that have seeds, nuts, coconut, dried fruit, whole grains, or bran; candy that has seeds or nuts; drinks sweetened with sorbitol or other sugar substitutes; caffeinated drinks, including tea, coffee, soda, and energy drinks [phone] [employer]. [address] [place] [address]. All rights reserved. This information is not intended as a substitute for professional medical care. Always follow yourhealthcare professional's instructions. Additional Information VACCINATE! IT SAVES LIVES! Members of the community who have not yet received the COVID-19 vaccine and would like to receive it can visit one of [facility] vaccine clinics. There are many vaccine clinic locations within the [facility]. For locations and available times, please visit [email or web address].[email or web address] It is important to note that some COVID mobile vaccine clinics are held outdoors and may be canceled in rainy or stormy conditions. To learn more about pediatric vaccinations (ages 5-11), we invite you to visit the [facility] webpage. [email or web address]/[email or web address] learn more about the COVID-19 vaccine, we invite you to visit the CDC website for a list of frequently asked questions. https://www.cdc.gov/coronavirus/2019-ncov/vaccines/faq.html [facility] Access Instructions: Stay connected with your healthcare team and access your personal medical information anytime with the [facility] Patient Portal. If you would like a full copy of your medical records please contact the [facility] Medical Records Department Thursday through Thursday between 8a.m. and 4:30p.m. Please follow the directions below to access the portal: 1.Access the email account you provided upon registration to the hospital.2.Look for an invitation email from [facility].3.Open the email and access the invitation link: Accept Invitation to [employer]4.Fill in the required collins to create your account. Sign into [email or web address] with your username and password that you created in the above steps to stay up to date. You can then view a summary of results, a summary of your visits, and the ability to download your summaries to your computer or send the information securely to a physician. Remember that your healthcare information is confidential, so carefully consider who you will allow to register on the [facility] Patient Portal for access to your information. You can also access the [employer] Patient Portal on the [employer]. Simply click on Health Records under [employer] and then click on the [employer] logo. HOW TO SAFELY DISPOSE OF PRESCRIPTION MEDICATIONS Please use one of the following methods to safely dispose of your unused medications. 1.Use a drug disposal kit: the drug disposal pouch allows you to safely discard your old and unuseddrugs. Ask your nurse to give you one when you are discharged.2.Visit a local take-back location: Many local pharmacies and police departments have programs that collect old and unwanted prescriptiondrugs. Call your local pharmacy or go to http://[employer].MarketArt/5Q0Nf7q to find one close to you.3.Make use of household items: Use cat litter or old coffee grounds to dispose medications if other options arenot available. Mix your drugs with these household products, seal them in an airtight container andthrow it into the garbage. Call [facility]: [phone] to be sure your drugs can be disposed of in this way. Some medicines may require a different approach.4.Never flush your medications down the toilet. IF YOU HAVE BEEN PRESCRIBED AN OPIOIDS FOR PAIN If you have been prescribed an opioid (such as hydrocodone, oxycodone or morphine), it is critical to understand the possible side effects and risks of opioid pain medications. Even when taken as directed, opioids can have several side effects including: Tolerance, meaning you might need to take more of a medication for the same pain relief. Nausea, vomiting and/or constipation. Sleepiness, dizziness, dry mouth, confusion, depression or itching. Physical dependence, meaning you have withdrawal symptoms when a medication is stopped ? this can develop within a few days. KNOW YOUR RESPONSIBILITIES It is important to know exactly how much and how often to take the opioid pain medications you are prescribed. Never take opioids in higher amounts or more often than prescribed. Do not combine opioids with alcohol or other drugs that cause drowsiness, such as benzodiazepines, also known as benzos,including diazepam and alprazolam, muscle relaxants or sleep aids. Never sell or share prescriptionopioids. This is illegal. Store opioids in a secure place and out of reach of others (including children, family, friends and visitors). The last page(s) of this document has been signed and retained as a CHART COPY Signatures Patient Education Materials Low-Residue Diet Medication Leaflets My discharge plan and instructions have been reviewed and explained to me and I,AMANDEEP SHASTA L understand my current condition and have read and understand these discharge instructions. I have received a written copy of the plan/instructions. If I have questions, I am aware that I should contact my doctor. 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 There is also suspected to be at least mild neural foraminal stenosis on the left at L4-L5 secondary to facet arthropathy and small disc protrusion. Interpreted by: Alli Merlos MD Preliminary Report By: Alli Merlos MD Electronically signed By Alli Merlos MD Dictated Date: 01/24/2024 2:32:22 AM Prelim Date: 01/24/2024 2:34:17 AM Sign Date: 01/24/2024 2:34:17 AM Ordering Provider: ELIANE WALDRON ORIGINAL EXAMINATION: CT OF THE ABDOMEN AND PELVIS WITHOUT CONTRAST 01/24/2024 2:15 am TECHNIQUE: CT of the abdomen and pelvis was performed without the administration of intravenous contrast. Multiplanar reformatted images are provided for review. Automated exposure control, iterative reconstruction, and/or weight based adjustment of the mA/kV was utilized to reduce the radiation dose to as low as reasonably achievable. COMPARISON: None. HISTORY: ORDERING SYSTEM PROVIDED HISTORY: Reason for Exam: feeling of numbness in her abdomen starting about a week ago and now having bloating and nausea for several days abdominal pain FINDINGS: Lung bases are clear. Liver, spleen, adrenal glands, pancreas, kidneys, and gallbladder demonstrate no acute abnormalities. Benign-appearing 2.4 cm cyst extends off of the midpole of the right kidney. Small bowel and colon are normal in course and caliber. Appendix is normal. Urinary bladder is normal in appearance. Appendix is normal. Aorta is normal in caliber, scattered atherosclerotic calcification is present along its course. No lymphadenopathy, free air, or free fluid. No suspicious adnexal lesions. IMPRESSION: No acute findings. Interpreted by: Alli Merlos MD Preliminary Report By: Alli Merlos MD Electronically signed By Alli Merlos MD Dictated Date: 01/24/2024 2:22:55 AM Prelim Date: 01/24/2024 2:24:55 AM Sign Date: 01/24/2024 2:24:55 AM [facility] Discharge instructions Patient Education 12/15/2023 17:00:12 About Arrhythmias About Arrhythmias Electrical impulses cause the normal heart to beat 60 to 100 times a minute while at rest. These impulses come from a natural pacemaker deep inside the heart muscle. Each impulse causes the heart muscle to contract. This causes the blood to flow through the heart and out to the tissues and organs of your body. An arrhythmia is a change from the normal speed or pattern of these electrical impulses. This can cause the heart to beat too fast (tachycardia); or too slow (bradycardia); or in an unsteady pattern (irregular rhythm). Symptoms of arrhythmias Different people experience arrhythmias differently. Sometimes they may not have symptoms, but justnotice a change in their pulse. Symptoms can include: Fluttering feeling in the chest Shortness of breath Chest pain or pressure Neck fullness Lightheadedness or dizziness Fainting or almost fainting Palpitations (the sense that your heart is fluttering or beating fast or hard or irregularly) Tiredness, fatigue, or weakness Cardiac arrest Causes of arrhythmias Arrhythmias are most often due to heart disease such as: Coronary artery disease Heart valve disease Enlarged heart High blood pressure Heart failure Other causes of arrhythmia include: Certain medicines (such as asthma inhalers and decongestants) Some herbal supplements Cardiac stimulant drugs (such as cocaine, amphetamine, diet pills, certain decongestant cold medicines, caffeine, and nicotine) Excessive alcohol use Anxiety and panic disorder Thyroid disease Anemia Diabetes Sleep apnea Obesity Congenital heart disease Cardiac genetic diseases Arrhythmias can often be prevented. The cause and type of arrhythmia determines the best treatment.Sometimes your doctor may want to monitor your heart rate over a 24-hour period or longer. This canhelp identify the cause of your arrhythmia and find the best treatment. This can be done with a Holter monitor, a portable EKG recording device attached by wires to your chest. Or you may get an event monitor, which you can place over the skin in front of your heart to record heart rhythms. You cancarry this with you as you go about your routine activities during the monitoring period. Implantable loop recorders may also be used to monitor the heart rhythm for up to 2 years. This miniature device is placed underneath the skin overlying the heart. Home care The following guidelines will help you care for yourself at home: Avoid cardiac stimulants (such as cocaine, amphetamine, diet pills, certain decongestant cold medicines, caffeine, and nicotine). If you smoke, stop smoking. Contact your doctor or a local stop-smoking program for help. Tell your doctor about any prescription, wxwy-wdk-afzzngw, or herbal medicines you take. These may be affecting your heart rhythm. Follow-up care Follow up with your healthcare provider, or as advised. If a Holter monitor has been recommended, contact the cooling system operator you have been referred to as soon as you can merchandise pickup/receiving associate the device. Other outpatient tests may also be arranged for you at that time. Call 911 This is the fastest and safest way to get to the emergency department. The paramedics can also start treatment on the way to the hospital, if needed. Don't wait until your symptoms are severe to call 911. Other reasons to call 911 besides chest paininclude: Chest, shoulder, arm, neck, or back pain Shortness of breath Feeling lightheaded, faint, or dizzy Unexplained fainting Rapid heart beat Slower than usual heart rate compared to your normal Very irregular heartbeat Chest pain (angina) with weakness, dizziness, heavy sweating, nausea, or vomiting Extreme drowsiness, or confusion Weakness of an arm or leg or one side of the face Difficulty with speech or vision When to seek medical advice Remember, things are not always like they are on TV. Sometimes it is not so obvious. You may only feel weak or just not right. If it is not clear or if you have any doubt, call for advice. Seek help for chest pain, or it feels different from usual, even if your symptoms are mild. Don't drive yourself. Have someone else drive. If no one can drive you, call 911. If your doctor has given you medicines to take when you have symptoms, take them, but don't delay getting help while trying to find them. [id number] [employer]. [address] [place] [address], [place] [place] [address]. All rights reserved. This information is not intended as a substitute for professional medical care. Always follow yourhealthcare professional's instructions. 12/15/2023 17:00:10 Palpitations Heart Palpitations Palpitations are the feeling that your heart is beating hard, fast, or irregular. Some describe it as pounding or skipped beats. Palpitations may occur in someone with heart disease, but can alsooccur in a healthy person. Heart-related causes: Arrhythmia (a change from the heart's normal rhythm) Heart valve disease Disease of the heart muscle Coronary artery disease High blood pressure Lqe-fkani-ygtnika causes: Certain medicines such as asthma inhalers and decongestants Some herbal supplements, energy drinks and pills, and weight loss pills Illegal stimulant drugs such as cocaine, crank, methamphetamine, PCP, bath salts, or ecstasy Caffeine, alcohol, and tobacco Medical conditions such as thyroid disease, anemia, anxiety, and panic disorder Sometimes the cause can't be found. Home care Follow these home care tips: Don't use too much caffeine, alcohol, tobacco, or any stimulant drugs. Tell your doctor about any prescription or mvll-tvc-cfreosp or herbal medicines you take. Follow-up care Follow up with your doctor, or as advised. Call 911 This is the fastest and safest way to get to the emergency department. The paramedics can also begin treatment on the way to the hospital, if needed. Don't wait until your symptoms are severe to call 911. These are reasons to call 911: Chest pain Shortness of breath Feeling lightheaded, faint, or dizzy Fainting or loss of consciousness Very irregular heartbeat Rapid heartbeat that makes you uncomfortable Slower than usual heart rate associated with symptoms Slower than usual heart rate Chest pain with weakness, dizziness, heavy sweating, nausea, or vomiting Extreme drowsiness or confusion Weakness of an arm or leg, or on 1 side of the face Difficulty with speech or vision When to seek medical advice Call your healthcare provider right away if you have palpitations and any of the following: Weakness Dizziness Lightheadedness Fainting [id number] [employer] [place] [address]. All rights reserved. This information is not intended as a substitute for professional medical care. Always follow yourhealthcare professional's instructions. Follow Up Care 12/15/2023 15:05:38 With:ERENDIRA LOZADA Address: [address] [place] [address] [phone] [phone] When:2-4 days [facility] 03-19-2024 Note Discharge Instructions Thank you for allowing [facility] to assist you with your healthcare needs. The following is importantdischarge information regarding your hospital visit. Diagnosis from Today's Visit Heart rate fast Lightheadedness Palpitations What to Do Next Instructions from Your Care Team No qualifying data available. Post Acute Orders No qualifying data available. You Need to Schedule the Following Appointments Follow Up with ERENDIRA LOZADA When Within 2-4 days Where: [address] [place] [address] [address] [phone] Allergies Peanut butter (Anaphylactic reaction) penicillin Medications Please ask your primary doctor or pharmacist before taking any other medication not listed, including over the counter drugs, herbal medications, vitamins and or supplements as they may interact withyour home medications. What How Much When Why Instructions Last Dose Unchanged aspirin (aspirin 81 mg oral delayed releasetablet) 1 tab(s) by mouth Every day do not crush or chew Unchanged ergocalciferol (Vitamin D2 1.25 mg (50,000 intl units) oral capsule) 1 cap by mouth Every week Unchanged furosemide (Lasix 20 mg oral tablet) 1 tab(s) by mouth Once a day Peripheral edema Duration: 14 Days Unchanged levothyroxine (Synthroid 75 mcg (0.075 mg) oral tablet) 1 tab(s) by mouth Once a day Duration: 30 Days SANDRA - synthroid Unchanged lisinopril (lisinopril 10 mg oral tablet) 1 tab(s) by mouth Once a day Duration: 30 Days Unchanged multivitamin (Multivitamin) 1 tab(s) by mouth Every day Unchanged nystatin topical (nystatin 100,000 units/ g topical cream) 1 application Topical Two (2) times a day as needed for Rash Duration: 30 Days Apply to the affected area twice daily until healing complete. Unchanged zinc sulfate (Zinc) by mouth Once a day Please take this list to your next doctor s visit. Bring all medications you take, including over the counter medications, herbals and other supplements with you to your doctor s visit. Patients and families are reminded to discard old lists and to update any records with all medication providers or retail pharmacies. Education Materials About Arrhythmias Electrical impulses cause the normal heart to beat 60 to 100 times a minute while at rest. These impulses come from a natural pacemaker deep inside the heart muscle. Each impulse causes the heart muscle to contract. This causes the blood to flow through the heart and out to the tissues and organs of your body. An arrhythmia is a change from the normal speed or pattern of these electrical impulses. This can cause the heart to beat too fast (tachycardia); or too slow (bradycardia); or in an unsteady pattern (irregular rhythm). Symptoms of arrhythmias Different people experience arrhythmias differently. Sometimes they may not have symptoms, but justnotice a change in their pulse. Symptoms can include: Fluttering feeling in the chest Shortness of breath Chest pain or pressure Neck fullness Lightheadedness or dizziness Fainting or almost fainting Palpitations (the sense that your heart is fluttering or beating fast or hard or irregularly) Tiredness, fatigue, or weakness Cardiac arrest Causes of arrhythmias Arrhythmias are most often due to heart disease such as: Coronary artery disease Heart valve disease Enlarged heart High blood pressure Heart failure Other causes of arrhythmia include: Certain medicines (such as asthma inhalers and decongestants) Some herbal supplements Cardiac stimulant drugs (such as cocaine, amphetamine, diet pills, certain decongestant cold medicines, caffeine, and nicotine) Excessive alcohol use Anxiety and panic disorder Thyroid disease Anemia Diabetes Sleep apnea Obesity Congenital heart disease Cardiac genetic diseases Arrhythmias can often be prevented. The cause and type of arrhythmia determines the best treatment.Sometimes your doctor may want to monitor your heart rate over a 24-hour period or longer. This canhelp identify the cause of your arrhythmia and find the best treatment. This can be done with a Holter monitor, a portable EKG recording device attached by wires to your chest. Or you may get an event monitor, which you can place over the skin in front of your heart to record heart rhythms. You cancarry this with you as you go about your routine activities during the monitoring period. Implantable loop recorders may also be used to monitor the heart rhythm for up to 2 years. This miniature device is placed underneath the skin overlying the heart. Home care The following guidelines will help you care for yourself at home: Avoid cardiac stimulants (such as cocaine, amphetamine, diet pills, certain decongestant cold medicines, caffeine, and nicotine). If you smoke, stop smoking. Contact your doctor or a local stop-smoking program for help. Tell your doctor about any prescription, uqlp-aoj-jaclpwx, or herbal medicines you take. These may be affecting your heart rhythm. Follow-up care Follow up with your healthcare provider, or as advised. If a Holter monitor has been recommended, contact the cooling system operator you have been referred to as soon as you can merchandise pickup/receiving associate the device. Other outpatient tests may also be arranged for you at that time. Call 911 This is the fastest and safest way to get to the emergency department. The paramedics can also start treatment on the way to the hospital, if needed. Don't wait until your symptoms are severe to call 911. Other reasons to call 911 besides chest paininclude: Chest, shoulder, arm, neck, or back pain Shortness of breath Feeling lightheaded, faint, or dizzy Unexplained fainting Rapid heart beat Slower than usual heart rate compared to your normal Very irregular heartbeat Chest pain (angina) with weakness, dizziness, heavy sweating, nausea, or vomiting Extreme drowsiness, or confusion Weakness of an arm or leg or one side of the face Difficulty with speech or vision When to seek medical advice Remember, things are not always like they are on TV. Sometimes it is not so obvious. You may only feel weak or just not right. If it is not clear or if you have any doubt, call for advice. Seek help for chest pain, or it feels different from usual, even if your symptoms are mild. Don't drive yourself. Have someone else drive. If no one can drive you, call 911. If your doctor has given you medicines to take when you have symptoms, take them, but don't delay getting help while trying to find them. [phone] [employer]. [address] [place] [address]. All rights reserved. This information is not intended as a substitute for professional medical care. Always follow yourhealthcare professional's instructions. Heart Palpitations Palpitations are the feeling that your heart is beating hard, fast, or irregular. Some describe it as pounding or skipped beats. Palpitations may occur in someone with heart disease, but can alsooccur in a healthy person. Heart-related causes: Arrhythmia (a change from the heart's normal rhythm) Heart valve disease Disease of the heart muscle Coronary artery disease High blood pressure Xyo-wycpj-btzkkwz causes: Certain medicines such as asthma inhalers and decongestants Some herbal supplements, energy drinks and pills, and weight loss pills Illegal stimulant drugs such as cocaine, crank, methamphetamine, PCP, bath salts, or ecstasy Caffeine, alcohol, and tobacco Medical conditions such as thyroid disease, anemia, anxiety, and panic disorder Sometimes the cause can't be found. Home care Follow these home care tips: Don't use too much caffeine, alcohol, tobacco, or any stimulant drugs. Tell your doctor about any prescription or xvzc-fra-uallito or herbal medicines you take. Follow-up care Follow up with your doctor, or as advised. Call 911 This is the fastest and safest way to get to the emergency department. The paramedics can also begin treatment on the way to the hospital, if needed. Don't wait until your symptoms are severe to call 911. These are reasons to call 911: Chest pain Shortness of breath Feeling lightheaded, faint, or dizzy Fainting or loss of consciousness Very irregular heartbeat Rapid heartbeat that makes you uncomfortable Slower than usual heart rate associated with symptoms Slower than usual heart rate Chest pain with weakness, dizziness, heavy sweating, nausea, or vomiting Extreme drowsiness or confusion Weakness of an arm or leg, or on 1 side of the face Difficulty with speech or vision When to seek medical advice Call your healthcare provider right away if you have palpitations and any of the following: Weakness Dizziness Lightheadedness Fainting [phone] [employer]. [address] [place] [address]. All rights reserved. This information is not intended as a substitute for professional medical care. Always follow yourhealthcare professional's instructions. Additional Information VACCINATE! IT SAVES LIVES! Members of the community who have not yet received the COVID-19 vaccine and would like to receive it can visit one of [facility] vaccine clinics. There are many vaccine clinic locations within the [facility]. For locations and available times, please visit www.[email or web address].[email or web address]/. It is important to note that some COVID mobile vaccine clinics are held outdoors and may be canceled in rainy or stormy conditions. To learn more about pediatric vaccinations (ages 5-11), we invite you to visit the [facility] webpage. [email or web address] learn more about the COVID-19 vaccine, we invite you to visit the CDC website for a list of frequently asked questions. https://www.cdc.gov/coronavirus/2019-ncov/vaccines/faq.html [facility] Access Instructions: Stay connected with your healthcare team and access your personal medical information anytime with the [facility] Portal. If you would like a full copy of your medical records please contact the [facility] Medical Records Department Thursday through Thursday between 8a.m. and 4:30p.m. Please follow the directions below to access the portal: 1.Access the email account you provided upon registration to the [facility].2.Look for an invitation email from [facility].3.Open the email and access the invitation link: Accept Invitation to [employer]4.Fill in the required collins to create your account. Sign into [email or web address] with your username and password that you created in the above steps to stay up to date. You can then view a summary of results, a summary of your visits, and the ability to download your summaries to your computer or send the information securely to a physician. Remember that your healthcare information is confidential, so carefully consider who you will allow to register on the [employer] Patient Portal for access to your information. You can also access the [employer] Patient Portal on the [employer]. Simply click on Health Records under [employer] and then click on the [employer] logo. HOW TO SAFELY DISPOSE OF PRESCRIPTION MEDICATIONS Please use one of the following methods to safely dispose of your unused medications. 1.Use a drug disposal kit: the drug disposal pouch allows you to safely discard your old and unuseddrugs. Ask your nurse to give you one when you are discharged.2.Visit a local take-back location: Many local pharmacies and police departments have programs that collect old and unwanted prescriptiondrugs. Call your local pharmacy or go to http://bit.ly/6Q6Dv9m to find one close to you.3.Make use of household items: Use cat litter or old coffee grounds to dispose medications if other options arenot available. Mix your drugs with these household products, seal them in an airtight container andthrow it into the garbage. Call [facility]: [phone] to be sure your drugs can be disposed of in this way. Some medicines may require a different approach.4.Never flush your medications down the toilet. IF YOU HAVE BEEN PRESCRIBED AN OPIOIDS FOR PAIN If you have been prescribed an opioid (such as hydrocodone, oxycodone or morphine), it is critical to understand the possible side effects and risks of opioid pain medications. Even when taken as directed, opioids can have several side effects including: Tolerance, meaning you might need to take more of a medication for the same pain relief. Nausea, vomiting and/or constipation. Sleepiness, dizziness, dry mouth, confusion, depression or itching. Physical dependence, meaning you have withdrawal symptoms when a medication is stopped ? this can develop within a few days. KNOW YOUR RESPONSIBILITIES It is important to know exactly how much and how often to take the opioid pain medications you are prescribed. Never take opioids in higher amounts or more often than prescribed. Do not combine opioids with alcohol or other drugs that cause drowsiness, such as benzodiazepines, also known as benzos,including diazepam and alprazolam, muscle relaxants or sleep aids. Never sell or share prescriptionopioids. This is illegal. Store opioids in a secure place and out of reach of others (including children, family, friends and visitors). The last page(s) of this document has been signed and retained as a CHART COPY Signatures Patient Education Materials About Arrhythmias Palpitations Medication Leaflets My discharge plan and instructions have been reviewed and explained to me and I,SHASTA GRACE understand my current condition and have read and understand these discharge instructions. I have received a written copy of the plan/instructions. If I have questions, I am aware that I should contact my doctor. Patient/Drawing Tracer Signature: Date/Time: Relationship to Patient: Witness Name/Signature: Date/Time: [facility]03-19-2024 Note ORIGINAL EXAMINATION: ONE XRAY VIEW OF THE CHEST12/15/2023 4:38 pm COMPARISON: Chest radiograph 12/25/2021 HISTORY: ORDERING SYSTEM PROVIDED HISTORY: Reason for Exam: chest pain FINDINGS: Cardiomediastinal contours are within normal limits. No focal consolidation or pulmonary edema. No pneumothorax or large pleural effusion. No acute osseous abnormalities. IMPRESSION: No acute radiographic findings. I have personally reviewed the images of this examination and agree with the resident's findings and interpretation. Interpreted by: Damion Woodson Preliminary Report By: Cinda Enrique Electronically signed By Damion Woodson Dictated Date: 12/15/2023 4:42:38 PM Prelim Date: 12/15/2023 4:44:40 PM Sign Date: 12/15/2023 4:47:53 PM Ordering [facility] NoteSinus rhythm Atrial premature complexes Nonspecific T abnormalities, lateral leads Electronic Signature: ELIANE WALDRON MD 12/15/2023 15:59:51[facility] 09-14-2023 NoteHNO ID: [id number] Author: Sue Mcbride APRN.AUTOMOTIVE LOT ATTENDANT Service: ? Author Type: Nurse Practitioner Type: Progress Notes Filed: 06/11/2023 1:06 PM Note Text: Shuttle Threader offered: Patient declines. Shasta is a 58 year old who presents for an annual gynecologic exam without complaints. Has stopped all medications due to cost - is working to pay off 's medical bills. Postmenopausal: supracervical hysterectomy for adenomyosis 2002, ovary sparing HRT use: No, briefly used estradiol 10 mg vaginally twice weekly several years ago Last Pap: 03/12/2022 normal Lai HPV:03/12/2022 negative Lai History of abnormal pap: No Last mammogram: 2019 normal Abnormal mammogram -0 2009 right breast bx normal Sexually active: Yes, infrequent History of STDS: None Patient concerns for STD exposure: No. 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 History LMP: Hysterectomy Age at Menarche: Age at First : Age at Menopause: Wedding Decorator History Comments: Sexual Activity: Yes; Male; hysterectomy Contraception: Surgical PAST MEDICAL HISTORY Diagnosis Date Breast microcalcification, mammographic 09/05/2010 RIGHT Diverticulitis of colon (without mention of hemorrhage)(562.11) 09/28/2005 Essential hypertension Hypothyroidism PAST SURGICAL HISTORY Procedure Laterality Date BX BREAST PERC VACUUM/ROTN 09/05/2010 RIGHT DELIVERY ONLY CONSULT TO SPINE SURGERY 1999,2006 discectomy in L5 SUPRACERV ABD HYSTERECTOMY 02/21/2003 Hysterectomy, cervix remains , adenomyosis and leiomyoma FAMILY HISTORY Problem Relation Age of Onset Hypertension Mother Stroke Mother Heart Mother a fib Cervical Cancer Mother Breast Cancer Maternal Aunt SOCIAL HISTORY Social History Tobacco Use Smoking status: Never Smokeless tobacco: Never Substance Use Topics Alcohol use: No Drug use: No REVIEW OF SYSTEMS Abdomen: No abdominal pain, nausea, vomiting, diarrhea, or constipation. No bloating, early satiety, indigestion, or increased flatulence. Bladder: No dysuria, gross hematuria, urinary frequency, urinary urgency, or incontinence Breast: No breast lumps, nipple d/c, overlying skin changes, redness or skin retraction Allergies and current medication updated:Yes EXAM: BP 146/84 Ht 5' 4.5 (1.64m) Wt 251 lb (113.9kg) BMI 42.43 kg/(m2). GENERAL: pleasant, female in no apparent distress HEENT: Normocephalic, atraumatic, mucus membranes moist, and no lesions NECK: Supple, full range of motion, no adenopathy, and thyroid normal DERMATOLOGY: Normal, without lesions, non-icteric, and non-hirsute BREAST: soft, non-tender, symmetric, no dominant mass, normal nipple-areolar complex, no lymphadenopathy, and no nipple discharge CHEST: Normal inspiratory effort ABDOMEN: soft, non-tender, and no masses PELVIC: external genitalia normal, normal Bartholin's glands, urethra, [place]'s glands, no vulvar lesions, no cervical lesions, physiologic discharge present, normal appearing perineal body and perianal region. Postmenopausal atrophic vaginitis. BIMANUAL: no adnexal masses, non-tender, and uterus surgically absent RECTOVAGINAL: deferred. NEURO: alert and oriented x3,exam grossly non-focal EXTREMITIES: normal ASSESSMENT/PLAN: 1) Health maintenance: Pap/HPV up to date. Mammogram ordered Nutrition, exercise and routine health maintenance exams reviewed. Calcium/Vitamin D supplementation information provided. Colon cancer screenin diverticulitis - will discuss with PCP Obesity - discussed wt management 2. Vulvar itching - ICD9: 698.1, ICD10: L29.2 Occasional - CLOTRIMAZOLE-BETAMETHASONE 1 %-0.05 % TOPICAL CREAM 3. Postmenopausal atrophic vaginitis - ICD9: 627.3, ICD10: N95.2 - ESTRADIOL 0.01% (0.1 MG/GRAM) VAGINAL CREAM 4) Follow up one year or sooner as needed Sue Mcbride APRN.[facility]09-14-2023 Instructions* Patient Instructions* Sue Mcbride APRN.[facility] - 06/11/2023 7:32 AM EDT Calcium and Vitamin D Supplementation (from the National Institutes of Health Office of Dietary Supplements 2010) Calcium 1200 mg daily - 600 mg twice a day if taking supplement and Vit D 800- 1000 IU daily Calcium is required by the body for blood vessel, muscle, hormone and nerve functioning. Most of the body's calcium is stored in the bones and teeth where it supports structure and function. Bone is continuously broken down and reformed. When bone breakdown exceeds formation, especially in postmenopausal women, bone loss can increase the risk of osteoporosis and fractures. In addition to low calcium intake, women who smoke, have a family history of osteoporosis, are thin, or , orwho take certain medications such as cancer chemotherapy, seizure mediations and steroids are at increased risk of osteoporosis. The calcium requirements in women change with age. The National Institutes of Health (NIH) recommends: 1000mg elemental calcium for premenopausal women age 19-50 1200mg elemental calcium for postmenopausal women and all women over 50 Milk, yogurt, and cheese are rich natural sources of calcium and are the major food contributors inthe [place]. For example, 8oz of milk (whole, lowfat or skim) contains about 300mg calcium, 8oz of yogurt contains 415mg. Nondairy sources include salmon and sardines and vegetables, such as Faroese cabbage, kale, and broccoli. Foods fortified with calcium include many fruit juices, tofu and cereals. For more food calcium content information, visit http://ods.od.nih.gov/factsheets/calcium. Calcium supplements come in several different forms. Remember that the recommendations are for millgrams (mg) of elemental calcium which may be less than the total weight of the supplement. The amount of elemental calcium is required to be printed on the label. Calcium carbonate is the least expensive form. It must be taken on a full stomach to be properly absorbed. Some patients may experience gas or constipation. Calcium phosphate and calcium citrate may be taken either with or without food and tend to have less side effects but are generally more expensive. Because of its ability to neutralize stomach acid, calcium carbonate is found in some nymk-sru-ghqzxye antacid products, such as Tums and Rolaids . Depending on its strength, each chewable pill or softchew provides 200 to 400 mg of elemental calcium. The percentage of calcium absorbed depends on the total amount of elemental calcium consumed at onetime. Absorption is highest in doses <500mg. So a woman who takes 1,000mg/day of calcium from supplements should split the dose and take 500mg at two separate times during the day. Too much calcium can cause kidney stones, constipation, difficulty absorbing other nutrients and calcium buildup in blood vessels. Women under 50 should not exceed 2500mg/day (2000mg/day for women over 50) of calcium from food and supplements. Excessive alcohol and caffeine intake can inhibit absorption of calcium. Calcium can reduce the absorption of some medications if taken at the same time of day (bisphosphonates, thyroid medication, Phenytoin and other seizure medications, some antibiotics and iron supplements). Vitamin D promotes calcium absorption in the gut and maintains adequate blood levels of calcium andphosphate for normal bone growth and bone remodeling. Vitamin D also helps regulate cell growth as well as nerve, muscle and immune system function. Vitamin D is produced in the skin as a result of ultraviolet sunlight rays and must be altered in the liver and kidney to become its active form. Recommended intake according to the National Institutes of Health is 600 International Units (IU) for girls and women ages 1-70 and 800 IU for women over 70. Very few foods in nature contain vitamin D. The flesh of fatty fish (such as salmon, tuna, and mackerel) and fish liver oils are among the best sources. Small amounts of vitamin D are found in beef liver, cheese, mushrooms and egg yolks. Most people meet at least some of their vitamin D needs through exposure to sunlight. Season, time of day, length of day, cloud cover, smog, skin melanin content, and sunscreen are among the factors thataffect UV radiation exposure and vitamin D synthesis. Despite the importance of the sun for vitaminD synthesis, it is prudent to limit exposure of skin to sunlight and avoid tanning beds. UV radiation is a carcinogen responsible for most of the estimated 1.5 million skin cancers that occur annually in the [place]. Lifetime cumulative UV damage to skin is also responsible for some age-associated dryness and other cosmetic changes. In supplements and fortified foods, vitamin D is available in two forms, D2 (ergocalciferol) and D3(cholecalciferol). The two are equivalent at normal supplement doses. For women who require high supplement doses because of vitamin D deficiency, D3 may work better to raise blood levels. Some medications can prevent proper absorption of Vitamin D. These include laxatives, corticosteroids like prednisone, the seizure drugs phenobarbital and phenytoin, the weight-loss drug orlistat ( Xenical and AlliTM) and the cholesterol-lowering drug cholestyramine (Questran , LoCholest , and Prevalite ). Talk to your doctor about adjusting your recommended daily vitamin D dosage if you take these medications. You should not exceed 4000 mg of vitamin D supplementation daily unless specifically prescribed by your doctor. [facility] History of Present illness Narrative* Sue Mcbride APRN.CNP - 06/11/2023 7:00 AM EDT Shuttle Threader offered: Patient declines. Shasta is a 58 year old who presents for an annual gynecologic exam without complaints. Has stopped all medications due to cost - is working to pay off 's medical bills. Postmenopausal: supracervical hysterectomy for adenomyosis 2002, ovary sparing HRT use: No, briefly used estradiol 10 mg vaginally twice weekly several years ago Last Pap: 03/12/2022 normal Lai HPV:03/12/2022 negative Lai History of abnormal pap: No Last mammogram: 2019 normal Abnormal mammogram -0 2009 right breast bx normal Sexually active: Yes, infrequent History of STDS: None Patient concerns for STD exposure: No. 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 History LMP: Hysterectomy Age at Menarche: Age at First : Age at Menopause: Wedding Decorator History Comments: Sexual Activity: Yes; Male; hysterectomy Contraception: Surgical PAST MEDICAL HISTORY Diagnosis Date Breast microcalcification, mammographic 09/05/2010 RIGHT Diverticulitis of colon (without mention of hemorrhage)(562.11) 09/28/2005 Essential hypertension Hypothyroidism PAST SURGICAL HISTORY Procedure Laterality Date BX BREAST PERC VACUUM/ROTN 09/05/2010 RIGHT DELIVERY ONLY CONSULT TO SPINE SURGERY 1999,2006 discectomy in L5 SUPRACERV ABD HYSTERECTOMY 02/21/2003 Hysterectomy, cervix remains , adenomyosis and leiomyoma FAMILY HISTORY Problem Relation Age of Onset Hypertension Mother Stroke Mother Heart Mother a fib Cervical Cancer Mother Breast Cancer Maternal Aunt SOCIAL HISTORY Social History Tobacco Use Smoking status: Never Smokeless tobacco: Never Substance Use Topics Alcohol use: No Drug use: No REVIEW OF SYSTEMS Abdomen: No abdominal pain, nausea, vomiting, diarrhea, or constipation. No bloating, early satiety, indigestion, or increased flatulence. Bladder: No dysuria, gross hematuria, urinary frequency, urinary urgency, or incontinence Breast: No breast lumps, nipple d/c, overlying skin changes, redness or skin retraction Allergies and current medication updated:Yes EXAM: BP 146/84 Ht 5' 4.5 (1.64m) Wt 251 lb (113.9kg) BMI 42.43 kg/(m^2). GENERAL: pleasant, female in no apparent distress HEENT: Normocephalic, atraumatic, mucus membranes moist, and no lesions NECK: Supple, full range of motion, no adenopathy, and thyroid normal DERMATOLOGY: Normal, without lesions, non-icteric, and non-hirsute BREAST: soft, non-tender, symmetric, no dominant mass, normal nipple-areolar complex, no lymphadenopathy, and no nipple discharge CHEST: Normal inspiratory effort ABDOMEN: soft, non-tender, and no masses PELVIC: external genitalia normal, normal Bartholin's glands, urethra, [place]'s glands, no vulvar lesions, no cervical lesions, physiologic discharge present, normal appearing perineal body and perianal region. Postmenopausal atrophic vaginitis. BIMANUAL: no adnexal masses, non-tender, and uterus surgically absent RECTOVAGINAL: deferred. NEURO: alert and oriented x3,exam grossly non-focal EXTREMITIES: normal ASSESSMENT/PLAN: 1) Health maintenance: Pap/HPV up to date. Mammogram ordered Nutrition, exercise and routine health maintenance exams reviewed. Calcium/Vitamin D supplementation information provided. Colon cancer screenin diverticulitis - will discuss with PCP Obesity - discussed wt management 2. Vulvar itching - ICD9: 698.1, ICD10: L29.2 Occasional - CLOTRIMAZOLE-BETAMETHASONE 1 %-0.05 % TOPICAL CREAM 3. Postmenopausal atrophic vaginitis - ICD9: 627.3, ICD10: N95.2 - ESTRADIOL 0.01% (0.1 MG/GRAM) VAGINAL CREAM 4) Follow up one year or sooner as needed Sue Mcbride APRN.AUTOMOTIVE LOT ATTENDANT [facility] Discharge instructions Patient Education 01/26/2022 12:30:32 Allergic Reaction, Other (General) General Allergic Reactions An allergic reaction is a set of symptoms caused by an allergen. An allergen is something that causes a person s immune system to react. When a person comes in contact with an allergen, it causes thebody to release chemicals. These include the chemical histamine. Histamine causes swelling and itching. It may affect the entire body. This is called a general allergic reaction. Often symptoms affect only 1 part of the body. This is called a local allergic reaction. You are having an allergic reaction. Almost anything can cause one. Different people are allergic to different things. It is usually something that you ate or swallowed, came into contact with by getting or putting it on your skin or clothes, or something you breathed in the air. This can be very annoying and sometimes scary. Most of us think of allergic reactions when we have a rash or itchy skin. Symptoms can include: Itching of the eyes, nose, and roof of the mouth Runny or stuffy nose Watery eyes Sneezing or coughing A blocked feeling in the ear Red, itchy rash called hives Red and purple spots Rash, redness, welts, blisters Itching, burning, stinging, pain Dry, flaky, cracking, scaly skin Severe symptoms include: Swelling of the face, lips, or other parts of the body Hoarse voice Trouble swallowing, feeling like your throat is closing Trouble breathing, wheezing Nausea, vomiting, diarrhea, stomach cramps Feeling faint or lightheaded, rapid heart rate Sometimes the cause may be obvious. But there are so many things that can cause a reaction that youmay not be able to figure out. The most important things to help find your allergen are: Remembering when it started What you were doing at the time or just before that Any activities you were involved in Any new products or contacts Below are some common causes. But remember that almost anything can cause a reaction. You may not even be aware that you came into contact with one of these things: Dust, mold, pollen Plants (common ones are poison marge and poison oak, but there are many others) Animals Foods such as shrimp, shellfish, peanuts, milk products, gluten, and eggs. Also food colorings, flavorings, and additives. Insect bites or stings such as bees, mosquitos, fleas, ticks Medicines such as penicillin, sulfa medicines, amoxicillin, aspirin, and ibuprofen. But any medicine can cause a reaction. Jewelry such as nickel or gold. This can be new, or something you ve worn for a while, including zippers and buttons. Latex such as in gloves, clothes, toys, balloons, or some tapes. Some people allergic to latex may also have problems with foods like bananas, avocados, kiwi, papaya, or chestnuts. Lotions, perfumes, cosmetics, soaps, shampoos, skincare products, nail products Chemicals or dyes in clothing, linen, cabinet mounter, hair dyes, soaps, iodine Many viruses and common colds can cause a rash that is not an allergic reaction. Sometimes it is hard to tell the difference between allergies, sensitivity, or an intolerance to something. This is especially true with food. Many things can cause diarrhea, vomiting, stomach cramps, and skin irritation. Home care The goal of treatment is to help relieve the symptoms and get you feeling better. The rash will usually fade over several days. But it can sometimes last a couple of weeks. Over the next couple of days, there may be times when it is gets a little worse, and then better again. Here are some things to do: If you know what you are allergic to, stay away from it. Future reactions could be worse than this one. Avoid tight clothing and anything that heats up your skin (hot showers or baths, direct sunlight). Heat will make itching worse. An ice pack will relieve local areas of intense itching and redness. To make an ice pack, put ice cubes in a plastic bag that seals at the top. Wrap it in a thin, clean towel. Don t put the ice directly on the skin because it can damage the skin. Oral diphenhydramine is an [id number] antihistamine sold at pharmacy and grocery stores. Unless a prescription antihistamine was given, diphenhydramine may be used to reduce itching if large areas of the skin are involved. It may make you sleepy. So be careful using it in the daytime or when going to school, working, or driving. Note: Don t use diphenhydramine if you have glaucoma or if youare a man with trouble urinating due to an enlarged prostate. There are other antihistamines that won t make you so sleepy. These are good choices for daytime use. Ask your pharmacist for suggestions. Don t use diphenhydramine cream on your skin. It can cause a further reaction in some people. To help prevent an infection, don't scratch the affected area. Scratching may worsen the reaction and damage your skin. It can also lead to an infection. Always check the affected for signs of an infection. Call your healthcare provider and ask what you can use to help decrease the itching. To decrease allergic reactions, try the following: Use heat-steam to clean your home Use high-efficiency particulate (HEPA) vacuums and filters Stay away from food and pet triggers Kill any cockroaches Clean your house often Follow-up care Follow up with your healthcare provider, or as advised. If you had a severe reaction today, or if you have had several mild to medium allergic reactions in the past, ask your provider about allergy testing. This can help you find out what you are allergic to. If your reaction included dizziness, fainting, or trouble breathing or swallowing, ask your provider about carrying auto- injectable epinephrine. Call 911 Call 911 if any of these occur: Trouble breathing or swallowing, wheezing Cool, moist, pale skin Shortness of breath Hoarse voice or trouble speaking Confused Very drowsy or trouble awakening Fainting or loss of consciousness Rapid heart rate Feeling of dizziness or weakness or a sudden drop in blood pressure Feeling of doom Feeling lightheaded Severe nausea or vomiting, or diarrhea Seizure Swelling in the face, eyelids, lips, mouth, throat or tongue Drooling When to seek medical advice Call your healthcare provider right away if any of these occur: Spreading areas of itching, redness or swelling Nausea or stomach cramps or abdominal pain Continuing or recurring symptoms Spreading areas of redness, swelling, or itching Signs of infection at the affected site: oSpreading redness oIncreased pain or swelling oFluid or colored drainage from the site oFever of 100.4 F (38 C) or above lasting for 24 to 48 hours, or as directed by your provider [id number] [employer]. [address] [place] [address]. All rights reserved. This information is not intended as a substitute for professional medical care. Always follow yourhealthcare professional's instructions. Follow Up Care 01/26/2022 11:38:31 With:CIRILO NICHOLE DO Address: [address] [place] [address] [place] [address]- [phone] When:2-4 days [facility] Evaluation + Plan note Future Appointments Appointment Date:11/19/2022 01:00:00 PM Scheduled Provider:ERENDIRA LOZADA Location:[facility] Appointment Type:CV OV Appointment Date:01/08/2023 02:00:00 PM Scheduled Provider:JERROD CRABTREE MD Location:[facility] Appointment Type:ENDO OV Future Scheduled Tests Laboratory* Thyroid Stimulating Hormone 01/03/22 * Thyroid Stimulating Hormone 01/02/23 * Thyroid Stimulating Hormone 11/01/21 * Thyroid Stimulating Hormone 05/01/21 * Free T4 01/03/22 * Free T4 01/02/23 * Free T4 11/01/21 * Free T4 05/01/21 * A1C Hemoglobin 01/03/22 * Free T3 01/03/22 * Free T3 01/02/23 * Free T3 11/01/21 * Free T3 05/01/21 * Lipid Profile 01/02/23 * Lipid Profile 07/24/21 * Lipid Profile 11/01/21 * Vitamin D Level 01/02/23 * Complete Metabolic Panel 01/03/22 * Complete Metabolic Panel 01/02/23 * Complete Metabolic Panel 07/24/21 * Complete Metabolic Panel 11/01/21 * anti-Thyroid Peroxidase 11/01/21 [facility] Evaluation + Plan note Future Appointments Appointment Date:11/19/2022 01:00:00 PM Scheduled Provider:ERENDIRA LOZADA Location:[facility] Appointment Type:CV OV Appointment Date:01/08/2023 02:00:00 PM Scheduled Provider:JERROD CRABTREE MD Location:[facility] Appointment Type:ENDO OV Future Scheduled Tests Laboratory* Thyroid Stimulating Hormone 01/03/22 * Thyroid Stimulating Hormone 11/01/21 * Thyroid Stimulating Hormone 05/01/21 * Free T4 01/03/22 * Free T4 11/01/21 * Free T4 05/01/21 * A1C Hemoglobin 01/03/22 * Free T3 01/03/22 * Free T3 11/01/21 * Free T3 05/01/21 * Lipid Profile 02/18/22 * Lipid Profile 07/24/21 * Lipid Profile 11/01/21 * Complete Metabolic Panel 01/03/22 * Complete Metabolic Panel 07/24/21 * Complete Metabolic Panel 11/01/21 * anti-Thyroid Peroxidase 11/01/21 Radiology* MA Mammo Screening Bilateral w/ Bennett 02/18/22 [facility] Evaluation + Plan note Future Appointments Appointment Date:11/19/2022 01:00:00 PM Scheduled Provider:ERENDIRA LOZADA Location:[facility] Appointment Type:CV OV Appointment Date:01/08/2023 02:00:00 PM Scheduled Provider:JERROD CRABTREE MD Location:[facility] Appointment Type:ENDO OV Future Scheduled Tests Laboratory* Pathology Wedding Decorator Request 03/12/22 * Thyroid Stimulating Hormone 01/03/22 * Thyroid Stimulating Hormone 11/01/21 * Thyroid Stimulating Hormone 05/01/21 * Free T4 01/03/22 * Free T4 11/01/21 * Free T4 05/01/21 * A1C Hemoglobin 01/03/22 * Free T3 01/03/22 * Free T3 11/01/21 * Free T3 05/01/21 * Lipid Profile 02/18/22 * Lipid Profile 07/24/21 * Lipid Profile 11/01/21 * Complete Metabolic Panel 01/03/22 * Complete Metabolic Panel 07/24/21 * Complete Metabolic Panel 11/01/21 * anti-Thyroid Peroxidase 11/01/21 Radiology* MA Mammo Screening Bilateral w/ Bennett 02/18/22 * MA Mammo Screening Bilateral w/ Bennett 03/12/22 [facility] Evaluation + Plan note Future Appointments Appointment Date:11/19/2022 01:00:00 PM Scheduled Provider:ERENDIRA LOZADA Location:[facility] Appointment Type:CV OV Appointment Date:01/08/2023 02:00:00 PM Scheduled Provider:JERROD CRABTREE MD Location:[facility] Appointment Type:ENDO OV Diagnostic Tests Pending * HPV Screen, DNA Probe 03/12/22 Future Scheduled Tests Laboratory* Thyroid Stimulating Hormone 01/03/22 * Thyroid Stimulating Hormone 11/01/21 * Thyroid Stimulating Hormone 05/01/21 * Free T4 01/03/22 * Free T4 11/01/21 * Free T4 05/01/21 * A1C Hemoglobin 01/03/22 * Free T3 01/03/22 * Free T3 11/01/21 * Free T3 05/01/21 * Lipid Profile 02/18/22 * Lipid Profile 07/24/21 * Lipid Profile 11/01/21 * Complete Metabolic Panel 01/03/22 * Complete Metabolic Panel 07/24/21 * Complete Metabolic Panel 11/01/21 * anti-Thyroid Peroxidase 11/01/21 Radiology* MA Mammo Screening Bilateral w/ Bennett 02/18/22 * MA Mammo Screening Bilateral w/ Bennett 03/12/22 [facility] Evaluation + Plan note Future Appointments Appointment Date:12/31/2023 11:30:00 AM Scheduled Provider:JERRELL PRABHAKAR APRN-AUTOMOTIVE LOT ATTENDANT Location:[facility] Appointment Type:PC OV [facility] Evaluation + Plan note Future Appointments Appointment Date:06/29/2024 01:00:00 PM Scheduled Provider:JERRELL PRABHAKAR Location:[facility] Appointment Type:PC OV Future Scheduled Tests Laboratory* Thyroid Stimulating Hormone 07/01/24 * Vitamin D Level 07/01/24 * Complete Metabolic Panel 07/01/24 [facility] Evaluation + Plan note Future Appointments Appointment Date:02/11/2024 08:30:00 AM Scheduled Provider:CIRILO NICHOLE DO Location:[facility] Appointment Type:PC OV Appointment Date:06/29/2024 01:00:00 PM Scheduled Provider:JERRELL PRABHAKAR Location:[facility] Appointment Type:PC OV Future Scheduled Tests Laboratory* Thyroid Stimulating Hormone 07/01/24 * Vitamin D Level 07/01/24 * Complete Metabolic Panel 07/01/24 Radiology* MRI Spine Lumbar w/ + w/o Contrast 02/03/24 [facility] [employer]uation + Plan note Future Appointments Appointment Date:03/09/2024 01:30:00 PM Scheduled Provider:CIRILO NICHOLE DO Location:[facility] Appointment Type:PC OV Appointment Date:06/29/2024 01:00:00 PM Scheduled Provider:JERRELL PRABHAKAR Location:[facility] Appointment Type:PC OV Diagnostic Tests Pending * Protein Electrophoresis Urine 02/11/24 Future Scheduled Tests Laboratory* Thyroid Stimulating Hormone 07/01/24 * Vitamin D Level 07/01/24 * Complete Metabolic Panel 07/01/24 Radiology* MRI Spine Lumbar w/ + w/o Contrast 02/03/24 [facility] evaluation + Plan note Future Appointments Appointment Date:03/09/2024 01:30:00 PM Scheduled Provider:CIRILO NICHOLE DO Location:[facility] Appointment Type:PC OV Appointment Date:06/29/2024 01:00:00 PM Scheduled Provider:JERRELL PRABHAKAR Location:[facility] Appointment Type:PC OV Future Scheduled Tests Laboratory* Thyroid Stimulating Hormone 07/01/24 * Vitamin D Level 07/01/24 * Complete Metabolic Panel 07/01/24 Radiology* MRI Spine Lumbar w/ + w/o Contrast 02/03/24 [facility] Evaluation + Plan note Future Appointments Appointment Date:02/24/2024 11:30:00 AM Scheduled Provider:CIRILO NICHOLE DO Location:[facility] Appointment Type:PC OV Appointment Date:03/09/2024 01:30:00 PM Scheduled Provider:CIRILO NICHOLE DO Location:[facility] Appointment Type:PC OV Appointment Date:06/29/2024 01:00:00 PM Scheduled Provider:JERRELL PRABHAKAR Location:[facility] Appointment Type:PC OV Future Scheduled Tests Laboratory* Thyroid Stimulating Hormone 07/01/24 * Vitamin D Level 07/01/24 * Complete Metabolic Panel 07/01/24 Radiology* MRI Spine Lumbar w/ + w/o Contrast 02/03/24 [facility] Evaluation + Plan note Future Appointments Appointment Date:05/10/2024 02:00:00 PM Scheduled Provider:CIRILO NICHOLE DO Location:[facility] Appointment Type:PC OV Appointment Date:06/29/2024 01:00:00 PM Scheduled Provider:JERRELL PRABHAKAR Location:[facility] Appointment Type:PC OV Diagnostic Tests Pending * Fungal Culture with Stain if Ind 03/16/24 * Acid Fast Bacilli Culture w Stain if Ind 03/16/24 Future Scheduled Tests Laboratory* Thyroid Stimulating Hormone 07/01/24 * Vitamin D Level 07/01/24 * Complete Metabolic Panel 07/01/24 Radiology* MRI Spine Lumbar w/ + w/o Contrast 02/03/24 [facility] evaluation note* Diagnosis Encounter for gynecological examination with abnormal finding- Primary Routine gynecological examination Vulvar itching Pruritus of genital organs Postmenopausal atrophic vaginitis Encounter for screening mammogram for malignant neoplasm of breast Other screening mammogram Class 3 severe obesity with body mass index (BMI) of 40.0 to 44.9 in adult, unspecified obesity type, unspecified whether serious comorbidity present (HCC) [facility] Encounter for gynecological examination with abnormal finding Routine gynecological examination Encounter for screening mammogram for malignant neoplasm of breast Other screening mammogram [facility] Narrative No data available for this section [facility] Hospital Discharge instructions No data available for this section [facility] Progress note No data available for this section [facility] Reason for referral (narrative)* Diagnostic Procedure Only (Routine) - Authorized Specialty Diagnoses / Procedures Referred By Taylor lemus Referred To Contact [facility] Diagnoses Encounter for gynecological examination with abnormal finding Encounter for screening mammogram for malignant neoplasm of breast Procedures MARCO ANTONIO SCREENING SCREENING MAMMOGRAPHY BI 2-VIEW BREAST INC Sue Mcgregor APRN.AUTOMOTIVE LOT ATTENDANT [address] [place] [address] [facility] [address] [place] [address] Referral ID Status Reason Start Date Expiration Date Visits Requested Visits Authorized [id number] Authorized Auto-Generat ed Referral 06/11/2023 07/10/2024 1 1 [facility] for referral (narrative)* Diagnostic Procedure Only (Routine) - Closed Specialty Diagnoses / Procedures Referred By Taylor lemus Referred To Contact [facility] Diagnoses Encounter for gynecological examination with abnormal finding Encounter for screening mammogram for malignant neoplasm of breast Procedures MARCO ANTONIO SCREENING SCREENING MAMMOGRAPHY BI 2-VIEW BREAST INC Sue Mcgregor APRN.AUTOMOTIVE LOT ATTENDANT [address] [place] [address] [facility] [address] [place] [address] Referral ID Status Reason Start Date Expiration Date V isits Requested Visits Authorized [id number] Closed Auto-Generate d Referral 06/11/2023 07/10/2024 [facility] Diagnostic Procedure Only (Routine) - Closed Specialty Diagnoses / Procedures Referred By Taylor t Referred To Contact [facility] Diagnoses Encounter for gynecological examination with abnormal finding Encounter for screening mammogram for malignant neoplasm of breast Procedures MARCO ANTONIO SCREENING SCREENING MAMMOGRAPHY BI 2-VIEW BREAST INC Sue Mcgregor APRN.AUTOMOTIVE LOT ATTENDANT [address] [place] [address] [facility] [address] [place] [address] Referral ID Status Reason Start Date Expiration Date V isits Requested Visits Authorized [id number] Closed Auto-Generate d Referral 06/11/2023 07/10/2024 1 1 [facility] Summary Purpose Family History No Family History Records Found No data available for this section No data available for this section No data available for this section No data available for this section No data available for this section No data available for this section No data available for this section No data available for this section No data available for this section No data available for this section No data available for this section No data available for this section No data available for this section No data available for this section No Family History Records Found Advance Directives No Advanced Directives Records FoundNo Advanced Directives Records Found Additional Source Comments Care Team (unrecognized sect ion and content) Nail Feeder Relationship Specialty Start Date End Date Cirilo Nichole DO [address] [place] [id number] PCP - General Family Medicine 05/12/23 Nail Feeder Relationship Specialty Start Date End Date Cirilo Nichole DO [address] [place] [id number] PCP - General Family Medicine 05/12/23 Source Comments (unrecognize d section and content) In the event this informatio n is protected by the Federal Confidentiality of Alcohol and Drug Abuse Patient Records regulations: The Federal rules restrict any use of the information to criminally investigate or prosecute any alcohol or drug abuse patient.[facility] event this information is protected by the Federal Confidentiality of Alcohol and Drug Abuse Patient Records regulations: The Federal rules restrict any use of the information to criminally investigate or prosecute any alcohol or drug abuse patient.[facility] Reason for Visit (unrecogniz ed section and content) Reason Comments [facility] INFORMATION SOURCE (unrecogn ized section and content) DATE CREATED AUTHOR 07/08/2023 [facility] DATE CREATED AUTHOR AUTHOR'S ORGANIZ ATION 05/13/2024 [facility] ([place]) FOR RECORDS PERTAINING TO PATIENTS WHO ARE OR HAVE BEEN ENROLLED IN A CHEMICAL DEPENDENCY/SUBSTANCEABUSE PROGRAM, SOME INFORMATION MAY BE OMITTED. This clinical summary was aggregated from multiple sources. Caution should be exercised in using it in the provision of clinical care. This summary normalizes information from multiple sources, and as a consequence, information in this document may materially change the coding, format and clinical context of patient data. In addition, data may be omitted in some cases. CLINICAL DECISIONS SHOULD BE BASED ON THE PRIMARY CLINICAL RECORDS. [facility]. provides no warranty or guarantee of the accuracy or completeness of information in this document.
== END 2024-07-26 16:27 | disposition home or self-care (01) ==
PROVIDERS: Emergency Provider Emergency Medicine; PCP Student in an Organized Health Care Education/Training Program; Visit Provider Emergency Medicine
DX: R20.2 Paresthesia of skin (principal); R42 Dizziness and giddiness
CPT/HCPCS: 70496; 70498; 71045; 80048; 82962; 84484; 85025; 85610; 85730; 93005; 99284; Q9967

== ENCOUNTER 2025-01-03 10:16 | Emergency (ER) | payer OTHER, SELFPAY ==
[2025-01-03 10:16] VITALS: BP 151/78; PULSE 72; RESP 14; TEMP 36.2; O2SAT 98
--- NOTE | 2025-01-03 10:32 | EKG12_ITS ---
Test Reason : SOB Blood Pressure : */* mmHG Vent. Rate : 68 BPM Atrial Rate : 68 BPM P-R Int : 192 ms QRS Dur : 90 ms QT Int : 410 ms P-R-T Axes : 50 47 63 degrees QTcB Int : 435 ms Sinus rhythm with Premature atrial complexes Otherwise normal ECG Confirmed by KEENAN MIRELES, JULIA ([id number]), manager editorial NICOLE SPICER ([id number]) on 01/05/2025 8:29:01 AM Referred By: LEW/RU Confirmed By: JULIA HUSSEIN MD
--- NOTE | 2025-01-03 10:33 | EX.ED.DYSGE1 ---
HPI History of Present Illness Chief Complaint: Shortness of Breath Detail of Chief Complaint: Dizziness, lightheadedness and shortness of Informant: patient Narrative Narrative: Patient presents with complaint of feeling lightheaded and dizzy. States that she has had episodes like this before. Symptoms started 3 days ago. Patient describes lightheadedness and also vertigo type symptoms. She has had some mild nausea. She complained of some exertional dyspnea when she went up the steps from the basement today and had some mild discomfort in her chest. She denies recent travel or surgery. Denies fevers or cough. She describes some mild urinary frequency. [facility] Medical History Hypertension Home Medications ?Medication ?Instructions ?Recorded ?Last Taken ?Type gabapentin 300 mg capsule 300 mg PO TID #89 caps 02/12/24 Unknown Rx prednisone 20 mg tablet 40 mg (2 x 20 mg) PO DAILY 6 days 02/12/24 Unknown Rx #12 tabs tramadol 50 mg tablet 50 mg PO Q8H PRN pain #14 tabs 02/12/24 Unknown Rx meclizine 25 mg tablet 25 mg PO TID PRN dizziness #14 tabs 01/03/25 Unknown Rx Allergy/AdvReac Type Severity Reaction Status Date / Time peanut (peanuts) Allergy Angioedema Verified 01/03/25 10:17 Penicillins Allergy Hives Verified 01/03/25 10:17 Social History Smoking Status: Never smoker ROS ROS ED Review of Systems ROS Unobtainable: other Constitutional Constitutional ED: Reports lethargy; Denies chills, fever(s), sweats or weight loss Eyes Eyes: Denies blurry vision, change in vision or diplopia ENT ENT ED: Denies rhinorrhea or sore throat Cardiovascular Cardiovascular: Reports chest pain; Denies orthopnea or racing heartbeat Respiratory/Chest Respiratory/Chest: Reports dyspnea and dyspnea on exertion; Denies cough, orthopnea or sputum Gastrointestinal Gastrointestinal: Reports nausea; Denies abdominal pain, diarrhea or vomiting Genitourinary Genitourinary ED: Denies dysuria, hematuria or urinary frequency Musculoskeletal Musculoskeletal: Denies arthralgias, back pain, myalgias or neck pain Integumentary Denies abscess, Abrasions or rash Neurologic Neurologic: Reports weakness and other Details: Dizziness ; Denies headache(s) Psychiatric Psychiatric: Denies anxiety, depression or suicidal thoughts Endocrine Endocrinology: Denies polydipsia, polyphagia or polyuria Hematologic/Lymphatic Hematologic/Lymphatic: Denies easy bleeding, easy bruising or lymphadenopathy Allergic/Immunologic Allergic/Immunologic ED: Denies mouth swelling, tongue swelling or urticaria EXAM Physical Exam Const Vital Signs: 01/03/25 10:16 01/03/25 11:02 01/03/25 12:11 Temperature 97.2 F L Temperature Source Temporal Pulse Rate 72 86 Pulse Rate [Lying] 85 Pulse Rate [Sitting (for 1 minute prior to obtaining)] 81 Pulse Rate [Standing (for 1 minute prior to obtaining)] 84 Respiratory Rate 14 18 Blood Pressure 151/78 H 139/66 H Blood Pressure [Lying] 158/53 H Blood Pressure [Sitting (for 1 minute prior to obtaining)] 170/59 H Blood Pressure [Standing (for 1 minute prior to obtaining)] 168/65 H Blood Pressure Mean 102 90 Blood Pressure Mean [Lying] 88 Blood Pressure Mean [Sitting (for 1 minute prior to obtaining)] 96 Blood Pressure Mean [Standing (for 1 minute prior to obtaining)] 99 Pulse Ox 98 98 Oxygen Delivery Method Room Air Room Air Positive well nourished and well developed General Appearance ED: well developed and NAD HEENT Reports TM's clear and moist mucous membranes normocephalic and atraumatic; Negative for trauma or tenderness Tympanic Membrane ED: Yes TM's clear Eyes PERRL and EOMs intact bilaterally General Eye ED: Negative for pale conjunctiva or scleral icterus Neck no lymphadenopathy, supple and no JVD General: Negative for tenderness Chest Wall inspection of chest normal and palpation of chest normal Chest: Negative for tenderness Resp normal respiratory effort and clear to auscultation bilaterally Effort and Inspection: Negative for respiratory distress or pain with movement Auscultation: Negative for rhonchi, wheezes or diminished lung sounds Cardio regular rate, regular rhythm, S1 normal heart sound, S2 normal heart sound and no murmurs Peripheral Pulses: pulses 2+ throughout GI normal to inspection, nondistended, normoactive bowel sounds, soft to palpation, non-tender, non-distended and no masses Back/Spine no CVA tenderness and no thoracic nor lumbar tenderness Extremity normal to inspection General Extremety ED: Negative for edema General Extremity: Negative for edema Neuro oriented x3, CN's II-XII intact bilaterally, no sensory deficits noted and gait normal Neuro Narrative: Hallpike maneuver performed and patient was very symptomatic with head turn to the left with just minimal nystagmus noted. Finger-nose and heel paredes testing within normal limits. Sensorium / Orientation: awake, alert, oriented to person, oriented to place and oriented to time Motor Exam: strength 5/5 throughout and strength abnormal Psych mental status grossly normal Skin no rashes or lesions noted and no wounds MDM MDM MDM Narrative Medical decision making narrative: Patient presents the emergency department with complaint of feeling somewhat weak and lightheaded and dizzy and some shortness of breath. Symptoms x 3 days. Denies fever or recent illness. She has had issues with vertigo in the past. She denies headache. Patient does have a positive Hallpike with head turn to the left. IV line established. She was medicated with Antivert. Patient she had a CT scan of the brain without contrast that showed no acute abnormality. CBC with differential is normal. Chemistries normal. EKG obtained arrival showed a sinus rhythm with ventricular rate of 68 bpm with occasional PACs. Troponin was normal at 6 and delta troponin normal at 7. Urinalysis normal. After treatment she did feel improved continues to feel little off balance. Clinically I suspect peripheral etiology for her vertigo. I have low suspicion for central cause although she has had symptoms for over 3 days she certainly is not a candidate for thrombolytic therapy. We discussed admission for further testing such as possibly MRI. Patient does not want to do this at this time and would prefer to go home and follow-up with ENT. Patient advised to return if worsening symptoms or condition should worsen anyway. Patient advised not to drive. She will be referred to ENT as she has had occasional ringing in the ears however she is unsure about hearing loss and in the differential also would be M?ni?re's disease Lab Data Attestation: I reviewed the patient's lab results. Labs: Laboratory Results - last 24 hr 01/03/25 01/03/25 01/03/25 10:30 11:15 12:30 WBC 6.5 RBC 4.94 Hgb 14.2 Hct 42.2 MCV 85.4 MCH 28.7 MCHC 33.6 RDW Std Deviation 40.4 RDW Coeff of John 13.1 Plt Count 222 MPV 8.7 Immature Gran % (Auto) 0.300 Neut % (Auto) 70.7 H Lymph % (Auto) 19.7 [place] % (Auto) 7.6 Eos % (Auto) 1.2 Baso % (Auto) 0.5 Absolute Neuts (auto) 4.6 Absolute Lymphs (auto) 1.27 Nucleated RBC % 0 Sodium 137 Potassium 4.9 Chloride 100 Carbon Dioxide 24.5 Anion Gap 12 BUN 12 Creatinine 0.77 Estim Creat Clear Calc 97.38 Est GFR (MDRD) Non-Af 87 BUN/Creatinine Ratio 15.3 Glucose 117 H Calcium 9.6 Troponin T High Sens 6 Troponin T Hi Sens 2 Hr 7 Urine Color Straw Urine Clarity Clear Urine pH 7.0 Ur Specific [place] 1.005 Urine Protein Negative Urine Glucose (UA) Normal Urine Ketones Negative Urine Occult Blood Negative Urine Nitrite Negative Urine Bilirubin Negative Urine Urobilinogen Normal Ur Leukocyte Esterase Negative Urine RBC 0 SEEN Urine WBC 0-5 SEEN Ur Squamous Epith Cells 0-5 SEEN Urine Bacteria 0 SEEN Urine Mucus 0 SEEN Radiography Diagnostic Testing: Clinical Impression(s) from Imaging Studies Brain CT 01/03/25 10:50 IMPRESSION: No acute intracranial abnormalities are demonstrated. Reading Location: [place] [id number] EKG Initial EKG: Attestation: I personally reviewed and interpreted this EKG as follows: Comments: Sinus rhythm with ventricular rate of 68 bpm with occasional PACs Discharge Plan Triage Chief Complaint: Shortness of Breath ED Provider: Mau Flanagan Dx/Rx/DC Orders Clinical Impression: Vertigo Instructions: ED Vertigo, Unspecified Prescriptions: New meclizine 25 mg tablet 25 mg PO TID PRN (Reason: dizziness) Qty: 14 0RF No Action gabapentin 300 mg capsule 300 mg PO TID Qty: 89 0RF Rx Instructions: Tomorrow,02/12, he will take 1 tab in the morning and in the evening. Starting the next day 02/13 you may take this 3 times a day tramadol 50 mg tablet 50 mg PO Q8H PRN (Reason: pain) Qty: 14 0RF prednisone 20 mg tablet 40 mg PO DAILY 6 Days Qty: 12 0RF Primary Care Provider: Cirilo Flaherty Referrals: Cirilo Flaherty DO [Primary Care Provider] - Morgan Hunter MD [Med Staff - Active Staff] - 3-5 Days Print Language: Tamazight
--- NOTE | 2025-01-03 10:50 | CT_ITS ---
PROCEDURE: BRAIN/HEAD WITHOUT CONTRAST 01/03/2025 REASON FOR EXAM: DIZZINESS TECHNIQUE: Head CT without intravenous contrast. Coronal and Sagittal reconstruction series were provided. One or more dose reduction techniques were used (e.g., Automated exposure control, adjustment of the mA and/or kV according to patient size, use of iterative reconstruction technique. RADIATION DOSE SUMMARY: CTDlvol: 44.99 mGy DLP: 829.85 mGycm COMPARISON: No relevant prior. FINDINGS: Cerebrum: No intraparenchymal hemorrhage. No abnormal areas of encephalomalacia. No mass effect or midline shift. Reis-white matter differentiation is normal. Ventricles and cisterns: Appropriate size for patient's age. Extra-axial fluid: Unremarkable. Posterior fossa: Unremarkable cerebellum. No abnormalities involving the brainstem. Paranasal sinuses: Normal. Vasculature: Unremarkable. Mastoid air cells: Normal. Calvarium: Unremarkable. Soft tissues: Unremarkable. CT/Brain/Head without Contrast IMPRESSION: No acute intracranial abnormalities are demonstrated. Reading Location: [place] [address]
[2025-01-03] MEDS: Meclizine HCl 25 MG Tablet PO (11:00)
[2025-01-03] MEDS: 0.9% Normal Saline (1000mL) 1,000 ML 1000 ML IV (11:00)
[2025-01-03] MEDS: Ondansetron 4 MG/2 ML Vial IV (11:00)
[2025-01-03 11:02] VITALS: BP 158/53; BP 168/65; BP 170/59; PULSE 81; PULSE 84; PULSE 85; BMI 42.3
[2025-01-03 11:09] LABS: Absolute Lymphocyte Count 1.27 X10^3/uL (0.83-4.51); Absolute Neutrophil Count 4.6 X10^3/uL (2.0-7.7); Basophil# 0.03 X10^3/uL; Basophil% 0.5 % (0-1); Eosinophil# 0.08 X10^3/uL; Eosinophils% 1.2 % (0-5); Hematocrit 42.2 % (37-47); Hemoglobin 14.2 g/dL (12.0-15.0); Lymphocyte # 1.27 X10^3/ul (0.83-4.51); Lymphocyte % 19.7 % (19-41); Mean Corp Hgb Conc 33.6 g/dL (32-36); Mean Corpuscular Hgb 28.7 pg (27.0-32.0); Mean Corpuscular Volume 85.4 fL (81-99); Mean Platelet Vol. 8.7 fl (6.2-12.0); Monocyte# 0.49 X10^3/uL; Monocyte% 7.6 % (0-10); NRBC Flagged by Analyzer 0 % (0-5); Neutrophil # 4.57 X10^3/uL (2.7-7.7); Neutrophil % 70.7 % (47-70); Platelet Count 222 K/mm3 (150-450); RBC Distribution Width CV 13.1 % (11.6-14.6); RBC Distribution Width SD 40.4 fl (35.1-43.9); Red Blood Count 4.94 M/mm3 (4.2-5.4); White Blood Count 6.5 K/mm3 (4.4-11.0)
[2025-01-03 11:29] LABS: Bacteria 0 SEEN /hpf (None Seen); Mucous, Urine 0 SEEN /hpf (<or=2+); Red Blood Cells-Urine 0 SEEN /hpf (0-5)
[2025-01-03 11:43] LABS: Color, Urine Straw (Yellow); Glucose, Dipstick Normal (Normal); Ketone-Dipstick Negative (Negative); Leukocyte Esterase-Dipstick Negative /ul (Negative); Nitrite-Dipstick Negative (Negative); Occult Blood-Urine Negative /ul (Negative); Protein-Dipstick Negative (Negative); Specific Gravity, Urine 1.005 (1.002-1.030); Urine Bilirubin Dipstick Negative (Negative); Urine Clarity Clear (Clear); Urine Urobilinogen Normal (Normal)
[2025-01-03 11:44] LABS: Anion Gap 12 (5-15); BUN 12 mg/dL (4-19); BUN/Creat Ratio 15.3 RATIO (10-20); Calcium,Total 9.6 mg/dL (7.6-11.0); Carbon Dioxide 24.5 mmol/L (21.0-32.0); Chloride 100 mmol/L (98-108); Creatinine, Serum 0.77 mg/dL (0.70-1.20); EST Glomerular Filtration Rate 87 (>60); Estimated Creatinine Clearance 97.38 ml/min (50-250); Glucose 117 mg/dL (70-99); Potassium 4.9 mmol/L (3.3-5.1); Sodium Level 137 mmol/L (133-145)
[2025-01-03 12:11] VITALS: BP 139/66; PULSE 86; RESP 18; O2SAT 98
[2025-01-03 12:17] LABS: Troponin T High Sensitivity 6 ng/L (<=14)
[2025-01-03] MEDS: 0.9% Normal Saline (1000mL) 1,000 ML 150 ML IV (12:23)
[2025-01-03 12:45] LABS: Squamous Epithelial Cells - UA 0-5 SEEN /hpf (5-10); White Blood Cells 0-5 SEEN /hpf (0-5)
[2025-01-03 13:16] LABS: Troponin T High Sens 2 HR 7 ng/L (<=14)
[2025-01-03 14:00] VITALS: BP 164/66; PULSE 79
[2025-01-03 14:11] VITALS: BP 164/66; PULSE 79; RESP 15; TEMP 36.2; O2SAT 98
== END 2025-01-03 14:19 | disposition home or self-care (01) ==
LOC: ED 11:36
PROVIDERS: Emergency Provider Emergency Medicine; PCP Student in an Organized Health Care Education/Training Program; Visit Provider Emergency Medicine
DX: R42 Dizziness and giddiness (principal)
CPT/HCPCS: 70450; 80048; 81001; 84484; 85025; 93005; 96361; 96374; 99285; A4216; J2405